=== PATIENT | male | born 1950 | race Caucasian/White ===

== ENCOUNTER 2017-09-07 12:22 | Inpatient (IN) | payer MEDICARE, SELFPAY ==
[2017-09-07] MEDS ORDERED: Multivitamins, Adult 10 ML, Thiamine HCl 100 MG, Folic Acid 1 MG in Dextrose 5 %-0.45 %... IV ONE (13:00)
[2017-09-07 13:14] LABS: #Lymphocytes 0.9 thou/uL (1.20-3.40); #Monocytes 1.1 thou/uL (0.11-0.59); #Neutrophils 13.5 thou/uL (1.40-6.50); %Basophils 0.1 % (0.0-1.0); %Eosinophils 0.1 % (0.0-10.0); %Lymphocytes 5.9 % (21.0-51.0); %Monocytes 6.8 % (0.0-10.0); Hemoglobin 11.8 g/dL (14.0-18.0); Mean Corpuscular HGB CONC 34.8 g/dL (32.0-36.0); Mean Corpuscular Hemoglobin 30.1 pg (27.0-31.0); Mean Corpuscular Volume 86.5 fl (80.0-94.0); Mean Platelet Volume 5.7 fL (7.4-10.4); Platelet Count 373 thou/uL (130-400); RBC Distribution Width 13.8 % (11.5-14.5); Red Blood Cell (RBC) Count 3.93 mill/uL (4.70-6.10); White Blood Cell (WBC) Count 15.6 thou/uL (4.8-10.8)
[2017-09-07 13:31] LABS: ALT (SGPT) 53 U/L (8-55); AST (SGOT) 66 U/L (5-34); Albumin 3.7 g/dL (3.4-4.8); Alkaline Phosphatase 96 U/L (40-150); Anion Gap 19 mmol/L (10-20); BUN (Urea Nitrogen) 12 mg/dL (8.4-25.7); Bilirubin, Total 1.7 mg/dL (0.2-1.2); Calc. Creatinine Clearance 0 mL/min (70-130); Calcium 9.8 mg/dL (7.8-10.44); Carbon Dioxide 27 mmol/L (23-31); Chloride 84 mmol/L (98-107); Estimated GFR-MDRD 75; Globulin 3.4 g/dL (2.4-3.5); Glucose 159 mg/dL (80-115); Magnesium 1.8 mg/dL (1.6-2.6); Potassium 4.1 mmol/L (3.5-5.1); Protein, Total 7.1 g/dL (5.8-8.1); Sodium 126 mmol/L (136-145)
[2017-09-07 14:37] LABS: Bilirubin Negative (Negative); Blood, Urine Negative (Negative); Clarity CLEAR (Clear); Glucose, Urine (Dipstick) Negative (Negative); Leukocyte Negative (Negative); Nitrite Negative (Negative); Protein, Urine (Dipstick) Negative (Neg-Trace); Specific Gravity, Urine 1.008 (1.002-1.036)
--- NOTE | 2017-09-07 15:05 | CT ---
CT BRAIN: Date: 09-07-17 Provided Clinical History: Head pain status post injury. FINDINGS: Comparison 06-10-02. The ventricular system appears normal in size and morphology. There is no evidence for intracranial h emorrhage or mass effect. The extracranial soft tissues and osseous structures demonstrate no acute a bnormality. IMPRESSION: No evidence for intracranial hemorrhage or mass effect. POS: [facility]
--- NOTE | 2017-09-07 15:07 | CT ---
CT CERVICAL SPINE: Date: 09-07-17 Provided Clinical History: Neck pain status post injury. FINDINGS: No evidence for fracture or traumatic subluxation. Advanced cervical degenerative changes are seen. N o prevertebral soft tissue swelling is evident. Visualized lung apices appear clear. IMPRESSION: No evidence for fracture or traumatic subluxation. POS: [facility]
--- NOTE | 2017-09-07 15:38 | PDOC.FPRHP ---
- History of Present Illness Chief Complaint: Multiple falls History of Present Illness: Patient is a 67yo M with PMH of alcohol abuse and no other known medical problems who presents via EMS for evaluation of multiple falls at home recently. Today he tripped over a pair of pants on the floor. No LOC. Reports generalized weakness. Lives alone. Upon arrival, he is found to have several old healing rib fractures and one more recent fracture with lab abnormalities and pulmonary nodules on CT. Patient has not seen a doctor in years. He drinks about 12 beers per day. Last known drink was 2 days ago. He reports rib pain, but otherwise has no complaints. ED Course: In the ED he was given a banana bag - Allergies/Adverse Reactions Allergies Allergy/AdvReac Type Severity Reaction Status Date / Time No Known Allergies Allergy Verified 09/07/17 19:25 - Home Medications Medication Instructions Recorded Confirmed Type No Known [No Known] 09/07/17 09/07/17 History - History PMHx: 1. Alcohol Abuse PSHx: none FHx: none Social: Patient drinks 12 beers per day. Reports former tobacco abuse about 20 years ago. Denies drug use. - Review of Systems General: denies: fever/chills, weight/appetite/sleep changes Eyes: denies: eye pain, vision changes ENT: denies: nasal congestion, rhinorrhea Respiratory: denies: cough, congestion, shortness of breath Cardiovascular: denies: chest pain, palpitation, edema, paroxysmal nocturnal dyspnea Gastrointestinal: denies: nausea, vomiting, diarrhea, abdominal pain, GI bleeding Genitourinary: denies: incontinence, dysuria Skin: denies: rashes, lesions Musculoskeletal: reports: pain. denies: swelling Neurological: reports: weakness. denies: numbness, syncope, seizure Psychological: denies: anxiety, depression - Vital signs BP: 120/57 HR: 100 RR: 20 Tmax: 97.8 Pox: 99% on RA Wt: 99.7kg - Physical Exam Constitutional: NAD, awake, alert and oriented -Constitutional: disheveled HEENT: PERRLA, EOMI, grossly normal hearing -HEENT: mild horizontal nystagmus. Neck: FROM, no LAD Heart: RRR, normal S1/S2, no murmurs/rubs/gallops, no edema Lungs: CTAB, no respiratory distress, no wheezing, no retractions Abdomen: soft, non-tender, bowel sounds present, no hernias Musculoskeletal: normal structure, normal tone Neurological: no focal deficit, CN II-XII intact, normal sensation -Neurological: strength in UE and LE 5/5 -Skin: L lateral thigh with large red patches that are not raised and have overlying shiny film appearance. Multiple abrasions to legs and arms. Heme/Lymphatic: no unusual bruising or bleeding, no purpura, no petechia Psychiatric: normal mood and affect, intact recent and remote memory FMR H&P: Results - Labs Result Diagrams: 09/07/17 12:58 09/07/17 20:07 Lab results: WBC 15.6 thou/uL (4.8-10.8) H 09/07/17 12:58 Hgb 11.8 g/dL (14.0-18.0) L 09/07/17 12:58 Hct 34.0 % (42.0-52.0) L 09/07/17 12:58 MCV 86.5 fl (80.0-94.0) 09/07/17 12:58 Plt Count 373 thou/uL (130-400) 09/07/17 12:58 Neutrophils % 87.0 % (42.0-75.0) H 09/07/17 12:58 Sodium 126 mmol/L (136-145) L 09/07/17 12:58 Potassium 4.1 mmol/L (3.5-5.1) 09/07/17 12:58 Chloride 84 mmol/L (98-107) L 09/07/17 12:58 Carbon Dioxide 27 mmol/L (23-31) 09/07/17 12:58 BUN 12 mg/dL (8.4-25.7) 09/07/17 12:58 Creatinine 0.99 mg/dL (0.6-1.3) 09/07/17 12:58 Glucose 159 mg/dL (80-115) H 09/07/17 12:58 Calcium 9.8 mg/dL (7.8-10.44) 09/07/17 12:58 Total Bilirubin 1.7 mg/dL (0.2-1.2) H 09/07/17 12:58 AST 66 U/L (5-34) H 09/07/17 12:58 ALT 53 U/L (8-55) 09/07/17 12:58 Alkaline Phosphatase 96 U/L (40-150) 09/07/17 12:58 Serum Total Protein 7.1 g/dL (5.8-8.1) 09/07/17 12:58 Albumin 3.7 g/dL (3.4-4.8) 09/07/17 12:58 Urine Ketones Trace mg/dL (Negative) H 09/07/17 14:25 Urine Blood Negative (Negative) 09/07/17 14:25 Urine Nitrite Negative (Negative) 09/07/17 14:25 Ur Leukocyte Esterase Negative (Negative) 09/07/17 14:25 - EKG Interpretation EKG: Incomplete RBBB, short MI interval, supraventricular complexes. FMR H&P: A/P - Problem List (1) Hyponatremia Current Visit: Yes Status: Acute Code(s): E87.1 - HYPO-OSMOLALITY AND HYPONATREMIA (2) Multiple falls Current Visit: Yes Status: Acute Code(s): R29.6 - REPEATED FALLS (3) Hypochloremia Current Visit: Yes Status: Acute Code(s): E87.8 - OTH DISORDERS OF ELECTROLYTE AND FLUID BALANCE, NEC (4) Elevated AST (SGOT) Current Visit: Yes Status: Acute Code(s): R74.0 - NONSPEC ELEV OF LEVELS OF TRANSAMNS & LACTIC ACID DEHYDRGNSE (5) Hyperbilirubinemia Current Visit: Yes Status: Acute Code(s): E80.6 - OTHER DISORDERS OF BILIRUBIN METABOLISM (6) Normocytic anemia Current Visit: Yes Status: Acute Code(s): D64.9 - ANEMIA, UNSPECIFIED (7) Pulmonary nodules Current Visit: Yes Status: Acute (8) Alcohol abuse Current Visit: Yes Status: Acute Code(s): F10.10 - ALCOHOL ABUSE, UNCOMPLICATED - Plan Multiple Falls - no signs of weakness on exam or instability. Would be worthwhile to evaluate gait. Likely 2/2 to alcohol intoxication though. - head CT negative - PT/OT consult - fall precautions Hyponatremia - serum and urine osm to evaluate - Beer drinkers potomania vs. SIADH with lung mets - fluid restrict to 1800cc Hypochloremia - trend Elevated AST - likely 2/2 etoh use - trend Hyperbilirubinemia - direct bili to further evaluate Pulmonary Nodules - CTchest shows pulmonary nodules, likely metastatic disease - CEA, Ca 19-9, and Ca125 pending - CTabd/pelvis ordered Normocytic Anemia - Fe studies - FOBT - B12 - RBC folate - trend Rib Fracture - control pain with tylenol and ibuprofen Alcohol Abuse - ASE protocol VTE Ppx: Lovenox Code Status: Full Disposition/LOS: Symptomatic meds will be provided. Likely length of hospital stay >2 days. Discharge once medical conditions have been evaluated and treated. FMR H&P: Upper Level - Pertinent findings Gen: poorly groomed male in no acute distress, moves around bed with no pain HEENT: NC/AT, WAI,EOMI, MMM Resp: CTA, normal work of breathing CV: RRR, normal S1, S2, no murmur ABD: Soft nontender, nondistended. No CVA tenderness Extremities: no edema, pulses 2+ Psych: calm, normal affect and mood Neuro: No focal defecits. CN intact, normal strength and sensation - Plan Date/Time: 09/07/17 5716 IBk, have evaluated this patient and agree with findings/plan as outlined by academic intern resident. Pertinent changes/additions are listed here. 1 Euvolemic Hypoosmolar Hyponatremia- likely from beer potamania or SIADH. FU urine studies. fluid resrict. 2 Multiple Falls- likely 2/2 to deconditioning, nutrition and etoh. Will give IV thiamine while here and have PT evaluate 3 Hypochloremia-will follow 4 Elevated AST-2/2 to etoh use. will get RUQ sono 5 Hyperbilirubinemia- RUQ sono and direct bili to further evaluate 6 Pulmonary Nodules- concern for cancer. primary vs metastatic. CT chest shows pulmonary nodules, likely metastatic disease. CEA, Ca 19-9, and Ca125 pending and. CTabd/pelvis ordered 7 Normocytic Anemia- iron, folate and b12 pending 8 Alcohol Abuse- ASE protocol and IV thiamine VTE Ppx: Lovenox Code Status: Full Attending Addendum - Attending Addendum Date/Time: 09/08/17 0027 I personally evaluated the patient and discussed the management with Dr. Singh. I agree with the History, Examination, Assessment and Plan documented above with any addition or exceptions noted below.
--- NOTE | 2017-09-07 15:46 | CT ---
CT CHEST WITHOUT CONTRAST: Date: 09-07-17 Provided Clinical History: Right sided rib pain status post fall. FINDINGS: The heart, pericardium, and great vessels are suboptimally evaluated without IV contrast but demonstr ate an unremarkable, unenhanced CT appearance with the exception of vascular calcification including coronary calcium. There are multiple bilateral noncalcified pulmonary nodules. No pleural fluid or pneumothorax apparen t. The largest nodule is at the right lung base and measures approximately 13 mm. The airway appears patent and of normal caliber. Remote right sided rib fractures are noted. There is an age indeterminate but possibly acute fracture involving the anterior right 8th rib. The visualized portions of the upper abdomen demonstrate an unremarkable, unenhanced CT appearance. T he osseous structures demonstrate no concerning osteoblastic or osteolytic lesions. IMPRESSION: 1. Age indeterminate nondisplaced right anterior 8th rib fracture. 2. Multiple bilateral pulmonary nodules, suspicious for metastatic disease. POS: [facility]
[2017-09-07] MEDS ORDERED: Nicotine 14 MG PATCH TD PRN (15:49)
[2017-09-07 16:10] LABS: PTT 29.6 SEC (22.9-36.1); Prothrombin Time 12.9 SEC (12.0-14.7)
[2017-09-07 16:24] LABS: Amphetamine Not Detected (NotDetected); Barbiturates Screen Not Detected (NotDetected); Benzodiazepine Screen Not Detected (NotDetected); Cocaine Metabolite Screen Not Detected (NotDetected); Medtox Control Line Valid? VALID (VALID); Medtox Reader # READER 4; Methadone Not Detected (NotDetected); Methamphetamine Not Detected (NotDetected); Opiate Screen Not Detected (NotDetected); Oxycodone Screen Not Detected (NotDetected); Phencyclidine (PCP) Not Detected (NotDetected); THC/Cannabinoid Screen Not Detected (NotDetected); Tricyclic Screen Not Detected (NotDetected)
[2017-09-07 17:19] LABS: Anion Gap 16 mmol/L (10-20); BUN (Urea Nitrogen) 11 mg/dL (8.4-25.7); Calc. Creatinine Clearance 0 mL/min (70-130); Calcium 9.3 mg/dL (7.8-10.44); Carbon Dioxide 26 mmol/L (23-31); Chloride 87 mmol/L (98-107); Estimated GFR-MDRD Greater than 90; Glucose 137 mg/dL (80-115); Potassium 3.8 mmol/L (3.5-5.1); Sodium 125 mmol/L (136-145)
[2017-09-07 18:24] VITALS: BMI 25.0
[2017-09-07 20:32] LABS: Anion Gap 14 mmol/L (10-20); BUN (Urea Nitrogen) 11 mg/dL (8.4-25.7); Calc. Creatinine Clearance 78 mL/min (70-130); Carbon Dioxide 29 mmol/L (23-31); Chloride 88 mmol/L (98-107); Estimated GFR-MDRD 69; Glucose 154 mg/dL (80-115); Potassium 3.5 mmol/L (3.5-5.1); Sodium 127 mmol/L (136-145)
[2017-09-07] MEDS: Thiamine HCl 200 MG/2 ML VIAL SLOW IVP SCH (21:25)
[2017-09-07 22:03] LABS: Iron 21 ug/dL (65-175); Iron Binding Capacity, Total 179 mcg/dL (261-462)
--- NOTE | 2017-09-07 22:30 | PDOC.EVN ---
Event Note - Event Note Event Note: Date/Time: 09/07/170 I personally evaluated the patient and discussed the management with Dr. Khoury and Millie. I will cosign the Resident H&P when complete. Mr Mejía is being admitted for hyponatremia. He was last evaluated by a doctor 25 years ago in [place]. We suspect his living condition to be difficult. 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 He has 2 pulmonary nodules that will require workup wither inpt or outpt. ASE protocol initiated. thiamine and folate given.
[2017-09-07] MEDS ORDERED: Multivitamins, Adult 10 ML, Folic Acid 1 MG, Thiamine HCl 100 MG in Dextrose 5 %-0.45 %... IV SCH (23:00)
[2017-09-08 04:31] LABS: #Lymphocytes 2.1 thou/uL (1.20-3.40); #Monocytes 1.6 thou/uL (0.11-0.59); #Neutrophils 11.1 thou/uL (1.40-6.50); %Basophils 0.1 % (0.0-1.0); %Eosinophils 0.2 % (0.0-10.0); %Lymphocytes 14.3 % (21.0-51.0); %Neutrophils 74.5 % (42.0-75.0); Hemoglobin 10.3 g/dL (14.0-18.0); Mean Corpuscular HGB CONC 33.8 g/dL (32.0-36.0); Mean Corpuscular Hemoglobin 29.6 pg (27.0-31.0); Mean Corpuscular Volume 87.7 fl (80.0-94.0); Mean Platelet Volume 5.7 fL (7.4-10.4); Platelet Count 318 thou/uL (130-400); RBC Distribution Width 13.9 % (11.5-14.5); Red Blood Cell (RBC) Count 3.48 mill/uL (4.70-6.10); White Blood Cell (WBC) Count 14.9 thou/uL (4.8-10.8)
[2017-09-08 05:36] LABS: Anion Gap 13 mmol/L (10-20); BUN (Urea Nitrogen) 16 mg/dL (8.4-25.7); Calc. Creatinine Clearance 70 mL/min (70-130); Calcium 9.1 mg/dL (7.8-10.44); Carbon Dioxide 27 mmol/L (23-31); Chloride 89 mmol/L (98-107); Estimated GFR-MDRD 61; Glucose 105 mg/dL (80-115); Potassium 3.8 mmol/L (3.5-5.1); Sodium 125 mmol/L (136-145)
--- NOTE | 2017-09-08 08:58 | PDOC.FM ---
- Subjective Subjective: Patient reports that he is doing well. He reports some R sided rib pain. He denies any blood in his stool or dark black stools. He reports feeling overall weak. He is eating well and denies any N/V, cough, SOB, chest pain, abdominal pain. - Objective MAR Reviewed: Yes Vital Signs & Weight: Vital Signs (12 hours) Temp Pulse Resp BP BP Pulse Ox 09/08/17 08:05 98.7 F 79 16 101/65 100 09/08/17 03:21 112/58 L 09/07/17 23:42 98.2 F 94 18 110/56 L 99 Weight Weight 83.189 kg I&O: 09/07/17 09/08/17 09/09/17 06:59 06:59 06:59 Intake Total 100 Output Total 225 Balance -125 Result Diagrams: 09/08/17 04:10 09/08/17 04:10 <Ashley Murillo - Last Filed: 09/08/17 08:56> - Objective Vital Signs & Weight: Vital Signs (12 hours) Temp Pulse Pulse Pulse Pulse Resp BP 09/08/17 11:55 98.5 F 79 18 09/08/17 11:44 79 79 84 09/08/17 11:00 102/68 09/08/17 08:05 98.7 F 79 16 09/08/17 08:00 98.7 F 79 16 09/08/17 07:00 101/65 09/08/17 03:21 112/58 L BP BP BP BP Pulse Ox Pulse Ox 09/08/17 11:55 102/68 100 09/08/17 11:44 102/60 95/60 104/66 98 09/08/17 11:00 09/08/17 08:05 101/65 100 09/08/17 08:00 97 09/08/17 07:00 09/08/17 03:21 Weight Weight 83.189 kg I&O: 09/07/17 09/08/17 09/09/17 06:59 06:59 06:59 Intake Total 100 Output Total 225 Balance -125 Result Diagrams: 09/08/17 04:10 09/08/17 04:10 <Karuna Pope - Last Filed: 09/08/17 15:22> Phys Exam - Physical Examination Constitutional: NAD HEENT: moist MMs Respiratory: no wheezing, no rales, no rhonchi, clear to auscultation bilateral decreased air entry Cardiovascular: RRR, no significant murmur, no rub Gastrointestinal: soft, non-tender, no distention, positive bowel sounds Musculoskeletal: no edema, pulses present Neurological: non-focal, moves all 4 limbs Psychiatric: normal affect, A&O x 3 Skin: normal turgor, cap refill <2 seconds <Ashley Murillo - Last Filed: 09/08/17 08:56> Dx/Plan (1) Pulmonary nodules Status: Acute (2) Hyponatremia Code(s): E87.1 - HYPO-OSMOLALITY AND HYPONATREMIA Status: Acute (3) Positive fecal occult blood test Status: Acute (4) Leukocytosis Code(s): D72.829 - ELEVATED WHITE BLOOD CELL COUNT, UNSPECIFIED Status: Acute QualifierTitle: Leukocytosis type: unspecified Qualified Code(s): D72.829 - Elevated white blood cell count, unspecified (5) Alcohol abuse Code(s): F10.10 - ALCOHOL ABUSE, UNCOMPLICATED Status: Acute (6) Elevated AST (SGOT) Code(s): R74.0 - NONSPEC ELEV OF LEVELS OF TRANSAMNS & LACTIC ACID DEHYDRGNSE Status: Acute (7) Hypochloremia Code(s): E87.8 - OTH DISORDERS OF ELECTROLYTE AND FLUID BALANCE, NEC Status: Acute (8) Multiple falls Code(s): R29.6 - REPEATED FALLS Status: Acute (9) Normocytic anemia Code(s): D64.9 - ANEMIA, UNSPECIFIED Status: Acute (10) Former tobacco use Code(s): Z87.891 - PERSONAL HISTORY OF NICOTINE DEPENDENCE Status: Acute - Plan Plan: Multiple Falls No signs of weakness on exam or instability. Likely 2/2 deconditioning from chronic EtOH abuse. CT head was negative. - PT/OT consult - fall precautions Hyponatremia Likely 2/2 beer drinkers potomania with low urine Na of < 20. - fluid restrict to 1800cc - Trend Na Multiple Pulmonary Nodules CT chest shows pulmonary nodules, concerning for metastatic disease. FOBT positive. CEA 7.33. - Ca 19-9, and Ca [address] - [address] abd/pelvis Hypochloremia - trend Elevated AST - likely 2/2 EtOH use - trend Hyperbilirubinemia T. bili 1.7, d. bili 1.0. - Will trend - Consider RUQ US Normocytic Anemia FOBT positive. Iron studies consistent with Anemia of Chronic Disease. B12 WNL. - RBC folate - trend Rib Fracture - control pain with tylenol and ibuprofen Alcohol Abuse - [facility] protocol - Thiamine - Folic Acid - Multivitamin - Party Host about cessation Former Tobacco Abuse Patient has decreased air entry on exam and reports feeling tight sometimes when breathing. Has h/o smoking 1ppd for 15 years about 20 years ago. - Thomas prn <Ashley Murillo - Last Filed: 09/08/17 08:56> Attending Addendum - Attending Addendum Date/Time: 09/08/17 1520 I personally evaluated the patient and discussed the management with Dr. Murillo. I agree with the History, Examination, Assessment and Plan documented above with any addition or exceptions noted below. The patient appears to have mets on lung CT. CEA was elevated. Pt is having CT abd and pelvis to look for a primary neoplasm. Will consult GI as pt likely needs a colonosocpy. Anticipate an oncology referral as well. <Karuna Pope - Last Filed: 09/08/17 15:22>
[2017-09-08] MEDS ORDERED: Folic Acid 1 MG TAB PO SCH (09:00)
[2017-09-08] MEDS ORDERED: Pantoprazole 40 MG VIAL IVP SCH ×2 (09:00→16:00)
[2017-09-08] MEDS ORDERED: Multivitamin W/ Minerals 1 TAB PO SCH (09:00)
[2017-09-08] MEDS ORDERED: Prevnar 13-Val Conj/PF 0.5 ML SYRINGE IM ONE (09:00)
[2017-09-08] MEDS: Enoxaparin Sodium 40 MG/0.4 ML SYRINGE SC SCH (10:01)
[2017-09-08] MEDS: Folic Acid 1 MG TAB PO SCH (10:01)
[2017-09-08] MEDS: Thiamine HCl 200 MG/2 ML VIAL SLOW IVP SCH ×2 (10:01→20:59)
[2017-09-08] MEDS: Multivitamin W/ Minerals 1 TAB PO SCH (10:01)
--- NOTE | 2017-09-08 10:45 | CT ---
ABDOMEN CT WITH CONTRAST PELVIC CT WITH CONTRAST: HISTORY: Evidence of metastases. Evaluate for possible primary tumor. COMPARISON: None. TECHNIQUE: Abdomen and pelvic CT are performed with IV contrast. Enteric contrast was not administered. Rincon l reformatted images are submitted for interpretation. FINDINGS: ABDOMEN CT: There is a nodule in the right lung base measuring 1.3 x 1.2 cm. Heart size is normal. No pericardi al effusion. The descending thoracic aorta and abdominal aorta have an overall normal caliber. No p eriaortic fat stranding. Limited evaluation of the liver, pancreas, and spleen due to motion. No obvious abnormal enhancing m asses. Right adrenal gland is unremarkable. There is fullness of the left adrenal gland possibly du e to metastases. Symmetric enhancement of the kidneys. No obstructive uropathy. No gastrohepatic, retrocrural, or periportal lymphadenopathy. There is a large necrotic left periaortic lymph node measuring 1.4 x 1.4 cm. There is an enlarged ne phrotic left periaortic lymph node measuring 1.7 x 1.0 cm. Additional smaller retroperitoneal lymph nodes are identified. There is a necrotic, enlarged lymph node posterior to the left kidney measuring 1.7 x 2.2 cm. No mes enteric mass, free air, or fluid. Additional scattered nonspecific right abdominal mesenteric lymph nodes are noted. Gastric mucosa, duodenum, and multiple normal-caliber small bowel loops are identified. Ileocecal ju nction is normal. Normal-caliber appendix. Contrast is noted in a nondistended, nondilated colon. There is occasional diverticulosis, without evidence of diverticulitis. In the distal sigmoid colon and rectum, there is evidence of pericolonic fat stranding. There is abnormal soft tissue attenuatio n involving the left aspect of the distal sigmoid colon and rectum, measuring 2.2 x 1.2 cm. There ar e multiple adjacent enlarged lymph nodes. There is mucosal thickening and irregularity involving the rectum. Correlate for possible rectal neoplasm. A small amount of fluid in the presacral space. There are no lytic or blastic lesion in the osseous structures. Extensive degenerative changes are i dentified. 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 Additional metastatic lymph nodes are noted in the retroperitoneal reg ion (periaortic) as well as in the left upper quadrant mesentery. Possible left adrenal gland metast ases. POS: [facility]
[2017-09-08] MEDS ORDERED: Multivitamins, Adult 10 ML, Folic Acid 1 MG, Thiamine HCl 100 MG in Dextrose 5 %-0.45 %... IV SCH ×2 (13:00)
[2017-09-08] MEDS ORDERED: chlorproMAZINE HCl 25 MG in Sodium Chloride 0.9% 50 ML IVPB PRN (14:54)
[2017-09-08] MEDS ORDERED: GoLYTELY 4,000 ml Bottle PO SCH (18:00)
[2017-09-09 05:17] LABS: #Lymphocytes 1.9 thou/uL (1.20-3.40); #Monocytes 1.1 thou/uL (0.11-0.59); #Neutrophils 6.7 thou/uL (1.40-6.50); %Eosinophils 0.2 % (0.0-10.0); %Lymphocytes 19.4 % (21.0-51.0); %Monocytes 11.5 % (0.0-10.0); %Neutrophils 68.8 % (42.0-75.0); Hemoglobin 9.7 g/dL (14.0-18.0); Mean Corpuscular HGB CONC 34.5 g/dL (32.0-36.0); Mean Corpuscular Hemoglobin 30.7 pg (27.0-31.0); Mean Platelet Volume 5.8 fL (7.4-10.4); Platelet Count 296 thou/uL (130-400); RBC Distribution Width 13.7 % (11.5-14.5); Red Blood Cell (RBC) Count 3.15 mill/uL (4.70-6.10); White Blood Cell (WBC) Count 9.8 thou/uL (4.8-10.8)
[2017-09-09 05:55] LABS: Anion Gap 14 mmol/L (10-20); BUN (Urea Nitrogen) 11 mg/dL (8.4-25.7); Calc. Creatinine Clearance 104 mL/min (70-130); Calcium 8.2 mg/dL (7.8-10.44); Carbon Dioxide 27 mmol/L (23-31); Chloride 91 mmol/L (98-107); Estimated GFR-MDRD Greater than 90; Glucose 88 mg/dL (80-115); Sodium 129 mmol/L (136-145)
[2017-09-09 06:15] LABS: Potassium 2.8 mmol/L (3.5-5.1)
[2017-09-09] MEDS ORDERED: Potassium Chloride 40 MEQ in Premix Bag 1 BAG IVPB SCH (06:30)
[2017-09-09] MEDS ORDERED: Potassium Chloride 40 MEQ, Admixture Fee 1 EACH in Sodium Chloride 0.9% 250 ML 250 ML IV SCH (06:45)
[2017-09-09] MEDS ORDERED: Potassium Chloride 40 MEQ in Sodium Chloride 0.9% 250 ML 250 ML IV ONE (06:45)
[2017-09-09] MEDS: Multivitamin W/ Minerals 1 TAB PO SCH (09:15)
[2017-09-09] MEDS: Folic Acid 1 MG TAB PO SCH (09:15)
--- NOTE | 2017-09-09 09:18 | PDOC.FM ---
- Subjective Subjective: Patient doing well this AM. He denies any N/V, abdominal pain. He does report a lot of diarrhea, but was doing the bowel prep for the colonoscopy. Denies any blood in his stool. Denies CP or SOB. - Objective MAR Reviewed: Yes Vital Signs & Weight: Vital Signs (12 hours) Temp Pulse Resp BP BP BP Pulse Ox 09/09/17 08:00 98.6 F 72 16 118/60 99 09/09/17 07:00 100/61 09/09/17 04:00 97.8 F 76 16 100/61 100 09/09/17 03:00 100/60 09/09/17 00:00 98.1 F 87 20 110/62 96 09/08/17 23:00 110/62 Weight Weight 82.508 kg I&O: 09/08/17 09/09/17 09/10/17 06:59 06:59 06:59 Intake Total 100 400 Output Total 225 Balance -125 400 Result Diagrams: 09/09/17 05:01 09/09/17 05:01 <Ashley Murillo - Last Filed: 09/09/17 09:14> - Objective Vital Signs & Weight: Vital Signs (12 hours) Temp Pulse Pulse Resp BP BP BP 09/09/17 18:27 97.3 F L 67 16 149/65 H 09/09/17 15:00 149/65 H 09/09/17 11:04 98.0 F 70 16 116/64 09/09/17 11:00 118/60 09/09/17 08:00 98.0 F 70 16 118/60 09/09/17 07:48 72 118/60 09/09/17 07:00 100/61 Pulse Ox Pulse Ox 09/09/17 18:27 98 09/09/17 15:00 09/09/17 11:04 100 09/09/17 11:00 09/09/17 08:00 99 09/09/17 07:48 99 09/09/17 07:00 Weight Weight 82.508 kg I&O: 09/08/17 09/09/17 09/10/17 06:59 06:59 06:59 Intake Total 100 400 480 Output Total 225 Balance -125 400 480 Result Diagrams: 09/09/17 05:01 09/09/17 13:14 <Karuna Pope - Last Filed: 09/09/17 18:52> Phys Exam - Physical Examination Constitutional: NAD disheveled appearing HEENT: moist MMs Respiratory: no wheezing, no rales, no rhonchi, clear to auscultation bilateral Cardiovascular: RRR, no significant murmur, no rub Gastrointestinal: soft, non-tender, no distention, positive bowel sounds Musculoskeletal: no edema, pulses present Neurological: non-focal, moves all 4 limbs Psychiatric: normal affect, A&O x 3 Skin: normal turgor, cap refill <2 seconds <Ashley Murillo - Last Filed: 09/09/17 09:14> Dx/Plan (1) Pulmonary nodules Status: Acute (2) Hyponatremia Code(s): E87.1 - HYPO-OSMOLALITY AND HYPONATREMIA Status: Acute (3) Positive fecal occult blood test Status: Acute (4) Leukocytosis Code(s): D72.829 - ELEVATED WHITE BLOOD CELL COUNT, UNSPECIFIED Status: Acute QualifierTitle: Leukocytosis type: unspecified Qualified Code(s): D72.829 - Elevated white blood cell count, unspecified (5) Alcohol abuse Code(s): F10.10 - ALCOHOL ABUSE, UNCOMPLICATED Status: Acute (6) Elevated AST (SGOT) Code(s): R74.0 - NONSPEC ELEV OF LEVELS OF TRANSAMNS & LACTIC ACID DEHYDRGNSE Status: Acute (7) Hypochloremia Code(s): E87.8 - OTH DISORDERS OF ELECTROLYTE AND FLUID BALANCE, NEC Status: Acute (8) Multiple falls Code(s): R29.6 - REPEATED FALLS Status: Acute (9) Normocytic anemia Code(s): D64.9 - ANEMIA, UNSPECIFIED Status: Acute (10) Former tobacco use Code(s): Z87.891 - PERSONAL HISTORY OF NICOTINE DEPENDENCE Status: Acute (11) Hypokalemia Code(s): E87.6 - HYPOKALEMIA Status: Acute - Plan Plan: Possible Rectal Mass FOBT positive. Probably primary rectal malignancy seen on CT with multiple lymph node mets as well as L adrenal mets and bilateral pulmonary nodules concerning for mets. - Dr. Braswell with GI has been consulted, appreciate recs - Plan for EGD and Colonoscopy today - NPO - Protonix Multiple Falls No signs of weakness on exam or instability. Likely 2/2 deconditioning from chronic EtOH abuse. CT head was negative. - PT/OT consult - fall precautions Hyponatremia Likely 2/2 beer drinkers potomania with low urine Na of < 20. - fluid restrict to 1800cc - Trend Na Multiple Pulmonary Nodules CT chest shows pulmonary nodules, concerning for metastatic disease. FOBT positive. CEA 7.33. CA 19-9 63 - CT abd/pelvis Hypokalemia K 2.8 this AM -Will replete -Monitor Hypochloremia - trend Elevated AST - likely 2/2 EtOH use - trend Hyperbilirubinemia T. bili 1.7, d. bili 1.0. - Will trend - Consider RUQ US Normocytic Anemia FOBT positive. Iron studies consistent with Anemia of Chronic Disease. B12 WNL. RBC folate WNL. - trend Rib Fracture - control pain with tylenol and ibuprofen Alcohol Abuse - ASE protocol - Thiamine - Folic Acid - Multivitamin - Dope Firer about cessation Former Tobacco Abuse Patient has decreased air entry on exam and reports feeling tight sometimes when breathing. Has h/o smoking 1ppd for 15 years about 20 years ago. - Duonebs prn <Ashley Murillo - Last Filed: 09/09/17 09:14> Attending Addendum - Attending Addendum Date/Time: 09/09/17 1851 I personally evaluated the patient and discussed the management with Dr. Murillo. I agree with the History, Examination, Assessment and Plan documented above with any addition or exceptions noted below. The patient has hypokalemia. REplacing potassium and will recheck this afternoon. SCheduled for EGD/Colonoscopy today with biopsy of rectal mass. <Karuna Pope - Last Filed: 09/09/17 18:52>
[2017-09-09] MEDS: Enoxaparin Sodium 40 MG/0.4 ML SYRINGE SC SCH (09:20)
[2017-09-09] MEDS: Thiamine HCl 200 MG/2 ML VIAL SLOW IVP SCH ×2 (09:26→20:54)
[2017-09-09] MEDS: Pantoprazole 40 MG VIAL IVP SCH (09:26)
--- NOTE | 2017-09-09 09:57 | CON ---
DATE OF CONSULTATION: 09/08/2017 REASON FOR CONSULTATION: Request for colonoscopy . HISTORY OF PRESENT ILLNESS: Mr. Mejía is a 67-year-old gentleman found to have old rib fractur e the patient has diarrhea for the past 2 days, rectal bleeding change in bowel fun ction and weight loss. He has complained of hiccups for about the past 2 days. He states he has had this problem in the past, reflux, dysphagia, cough, shortness of breath. Denies any . PAST MEDICAL HISTORY: Alcohol abuse. PAST SURGICAL HISTORY: None. FAMILY HISTORY: None. SOCIAL HISTORY: . MEDICATIONS: , DuoNeb, Lovenox, multivitamin, thiamine, and folate. PHYSICAL EXAMINATION: VITAL SIGNS: Temperature 98, pulse 58, blood pressure 103/58. GENERAL: The patient is older than his stated age. . He is alert and oriented to person . LABORATORY DATA: White blood cell count differential normal. INR is 1. Sodium 125, . ASSESSMENT: This gentleman has been having falls at home, has significant hyponatremia. Chest x-ray shows bunch of noncalcified nodules. His abdomen is also concern for rectal lesion. There is a mil dly elevated CEA of unclear significance. He also has hiccups. PLAN: 1. Start PPI. 2. Chlorpromazine 25 mg q.6 to 8 hours p.r.n. for hiccups. 3. EGD and colonoscopy tomorrow. I have discussed risks, benefits, possible complications as well as the indication of procedure with the patient. He wishes to proceed.
[2017-09-09 14:06] LABS: Anion Gap 14 mmol/L (10-20); BUN (Urea Nitrogen) 9 mg/dL (8.4-25.7); Calc. Creatinine Clearance 103 mL/min (70-130); Calcium 8.5 mg/dL (7.8-10.44); Carbon Dioxide 28 mmol/L (23-31); Chloride 92 mmol/L (98-107); Estimated GFR-MDRD Greater than 90; Glucose 80 mg/dL (80-115); Magnesium 1.7 mg/dL (1.6-2.6); Sodium 131 mmol/L (136-145)
[2017-09-09 14:30] LABS: Potassium 2.9 mmol/L (3.5-5.1)
[2017-09-09] MEDS ORDERED: Fentanyl 100 MCG/2 ML VIAL ONE (14:51)
[2017-09-09] MEDS ORDERED: Promethazine HCl 25 MG/ML VIAL SLOW IVP PRN (15:52)
[2017-09-09] MEDS ORDERED: Promethazine HCl 25 MG/ML VIAL IM PRN (15:52)
[2017-09-09] MEDS ORDERED: Ondansetron HCl/PF 4 MG/2 ML Vial IVP PRN (15:52)
[2017-09-09] MEDS ORDERED: Potassium Chloride 20 MEQ TAB PO SCH (16:15)
[2017-09-09] MEDS ORDERED: ePHEDrine/0.9% NaCl/PF SYRINGE 50 mg/10 ml ONE (16:15)
[2017-09-09] MEDS ORDERED: PROPOFOL 200 MG/20 ML VIAL ONE (16:15)
[2017-09-09] MEDS ORDERED: Lidocaine 1% PF 5 ML VIAL ONE (16:15)
[2017-09-09] MEDS ORDERED: PHENYLEPHRINE-NS 100 MCG/ML 10 ML SYRINGE ONE (16:15)
[2017-09-09 16:16] LABS: Folate,Hemolysate 441.6 ng/mL (Not Estab.); Hematocrit 32.4 % (37.5-51.0); RBC Folate Test Component 1363 ng/mL (>498)
--- NOTE | 2017-09-09 19:18 | OP ---
DATE OF PROCEDURE: 09/09/2017 PROCEDURE PERFORMED: Colonoscopy with biopsy. PREOPERATIVE DIAGNOSIS: Abnormal CT scan. OPERATIVE NOTE: Informed consent was obtained from the patient. He was sedated with total intraveno us anesthesia. The rectal exam was performed which revealed a firm mass in the distal rectum. The c olonoscope was advanced to the terminal ileum without difficulty. The mucosa of the terminal ileum w as normal. The ileocecal valve and appendiceal orifice were clearly identified. Preparation quality was adequate. There was diverticulosis throughout the left colon, which was moderate. There was a large circumferential deeply ulcerated necrotic mass from 2 cm above the anal verge to 12-13 cm above the anal verge. Biopsies were obtained from the mass. Retroflexed views were not possible. IMPRESSION: 1. Large rectal mass from 2 cm above the anal verge to 13 cm. This was deeply ulcerated circumferen tially and necrotic. 2. Left-sided diverticulosis. 3. Otherwise normal colonoscopy to the terminal ileum. RECOMMENDATIONS: 1. Await histopathology. 2. Oncology consultation pending pathology results. Typically, he would receive radiation prior to surgery. He denies significant symptoms prior to now.
[2017-09-09 21:46] LABS: Potassium 3.1 mmol/L (3.5-5.1)
[2017-09-10 04:28] LABS: #Lymphocytes 1.7 thou/uL (1.20-3.40); #Monocytes 1.2 thou/uL (0.11-0.59); #Neutrophils 5.4 thou/uL (1.40-6.50); %Basophils 0.5 % (0.0-1.0); %Eosinophils 0.5 % (0.0-10.0); %Lymphocytes 19.9 % (21.0-51.0); %Monocytes 14.1 % (0.0-10.0); Hemoglobin 9.2 g/dL (14.0-18.0); Mean Corpuscular HGB CONC 33.8 g/dL (32.0-36.0); Mean Corpuscular Hemoglobin 30.5 pg (27.0-31.0); Mean Corpuscular Volume 90.2 fl (80.0-94.0); Mean Platelet Volume 5.9 fL (7.4-10.4); Platelet Count 296 thou/uL (130-400); RBC Distribution Width 13.7 % (11.5-14.5); Red Blood Cell (RBC) Count 3.02 mill/uL (4.70-6.10); White Blood Cell (WBC) Count 8.3 thou/uL (4.8-10.8)
[2017-09-10 04:40] LABS: Anion Gap 14 mmol/L (10-20); BUN (Urea Nitrogen) 8 mg/dL (8.4-25.7); Calc. Creatinine Clearance 104 mL/min (70-130); Calcium 8.4 mg/dL (7.8-10.44); Carbon Dioxide 28 mmol/L (23-31); Chloride 92 mmol/L (98-107); Estimated GFR-MDRD Greater than 90; Glucose 84 mg/dL (80-115); Potassium 3.1 mmol/L (3.5-5.1); Sodium 131 mmol/L (136-145)
--- NOTE | 2017-09-10 07:36 | PDOC.FM ---
- Subjective Subjective: Patient doing well this AM. Discussed with him that he had a mass in his rectum and that it is likely cancer and he was understanding of this. Informed him that we will begin to make plans regarding treatment once we get the pathology back. He denies any diarrhea, nausea, vomiting, abdominal pain. He reports that his hiccups have improved. He is tolerating PO well. - Objective MAR Reviewed: Yes Vital Signs & Weight: Vital Signs (12 hours) Temp Pulse Resp BP BP BP Pulse Ox 09/10/17 04:28 98.0 F 72 16 118/66 97 09/10/17 00:00 98.4 F 82 18 109/51 L 92 L 09/09/17 23:00 109/51 L 09/09/17 20:00 98.4 F 82 18 106/64 96 Weight Weight 82.508 kg I&O: 09/09/17 09/10/17 09/11/17 06:59 06:59 06:59 Intake Total 400 480 Balance 400 480 Result Diagrams: 09/10/17 04:00 09/10/17 04:00 <Ashley Murillo - Last Filed: 09/10/17 07:33> - Objective Vital Signs & Weight: Vital Signs (12 hours) Temp Pulse Resp BP BP Pulse Ox 09/10/17 11:00 98.7 F 76 16 122/66 100 09/10/17 08:00 98.0 F 18 96/61 99 09/10/17 04:28 98.0 F 72 16 118/66 97 Weight Weight 82.508 kg I&O: 09/09/17 09/10/17 09/11/17 06:59 06:59 06:59 Intake Total 400 480 Balance 400 480 Result Diagrams: 09/10/17 04:00 09/10/17 04:00 <Karuna Pope - Last Filed: 09/10/17 12:54> Phys Exam - Physical Examination Constitutional: NAD HEENT: moist MMs Respiratory: no wheezing, no rales, no rhonchi, clear to auscultation bilateral Cardiovascular: RRR, no significant murmur, no rub Gastrointestinal: soft, non-tender, no distention, positive bowel sounds Musculoskeletal: no edema, pulses present Neurological: non-focal, moves all 4 limbs Psychiatric: normal affect, A&O x 3 Skin: normal turgor, cap refill <2 seconds <Ashley Murillo - Last Filed: 09/10/17 07:33> Dx/Plan (1) Rectal mass Code(s): K62.9 - DISEASE OF ANUS AND RECTUM, UNSPECIFIED Status: Acute (2) Pulmonary nodules Status: Acute (3) Hyponatremia Code(s): E87.1 - HYPO-OSMOLALITY AND HYPONATREMIA Status: Acute (4) Positive fecal occult blood test Status: Acute (5) Leukocytosis Code(s): D72.829 - ELEVATED WHITE BLOOD CELL COUNT, UNSPECIFIED Status: Acute QualifierTitle: Leukocytosis type: unspecified Qualified Code(s): D72.829 - Elevated white blood cell count, unspecified (6) Alcohol abuse Code(s): F10.10 - ALCOHOL ABUSE, UNCOMPLICATED Status: Acute (7) Elevated AST (SGOT) Code(s): R74.0 - NONSPEC ELEV OF LEVELS OF TRANSAMNS & LACTIC ACID DEHYDRGNSE Status: Acute (8) Hypochloremia Code(s): E87.8 - OTH DISORDERS OF ELECTROLYTE AND FLUID BALANCE, NEC Status: Acute (9) Multiple falls Code(s): R29.6 - REPEATED FALLS Status: Acute (10) Normocytic anemia Code(s): D64.9 - ANEMIA, UNSPECIFIED Status: Acute (11) Former tobacco use Code(s): Z87.891 - PERSONAL HISTORY OF NICOTINE DEPENDENCE Status: Acute (12) Hypokalemia Code(s): E87.6 - HYPOKALEMIA Status: Acute - Plan Plan: Rectal Mass FOBT positive. Probably primary rectal malignancy seen on CT with multiple lymph node mets as well as L adrenal mets and bilateral pulmonary nodules concerning for mets. Colonoscopy revealed large, circumferential, ulcerated mass in the rectum. - Dr. Braswell with GI has been consulted, appreciate recs - Biopsies of the mass pending, plan for treatment once results are back - will likely need to get onc on board - Clear liquid diet - Protonix Multiple Falls No signs of weakness on exam or instability. Likely 2/2 deconditioning from chronic EtOH abuse. CT head was negative. - PT/OT consult - fall precautions Hyponatremia Likely 2/2 beer drinkers potomania with low urine Na of < 20. - fluid restrict to 1800cc - Trend Na Multiple Pulmonary Nodules CT chest shows pulmonary nodules, concerning for metastatic disease. FOBT positive. CEA 7.33. CA 19-[address] abd/pelvis showed rectal mass. These pulmonary nodules are likely metastatic from the rectal mass - Biopsies of rectal mass pending - Will likely need to get onc on board once biopsies result Hypokalemia K 3.1 this AM -Will replete -Monitor Hypochloremia - trend Elevated AST - likely 2/2 EtOH use - trend Hyperbilirubinemia T. bili 1.7, d. bili 1.0. - Will trend - Consider RUQ US Normocytic Anemia FOBT positive. Iron studies consistent with Anemia of Chronic Disease. B12 WNL. RBC folate WNL. - trend Rib Fracture - control pain with tylenol and ibuprofen Alcohol Abuse - ASE protocol - Thiamine - Folic Acid - Multivitamin - Cleaning Matron about cessation Former Tobacco Abuse Patient has decreased air entry on exam and reports feeling tight sometimes when breathing. Has h/o smoking 1ppd for 15 years about 20 years ago. - Thomas prn <Ashley Murillo - Last Filed: 09/10/17 07:33> Attending Addendum - Attending Addendum Date/Time: 09/10/17 1252 I personally evaluated the patient and discussed the management with Dr. Murillo. I agree with the History, Examination, Assessment and Plan documented above with any addition or exceptions noted below. The patient is feeling ok this morning. Pathology is pending. <Karuna Pope - Last Filed: 09/10/17 12:54>
[2017-09-10] MEDS: Potassium Chloride 20 MEQ in Premix Bag 1 BAG IVPB SCH ×2 (08:42→12:45)
[2017-09-10] MEDS: Pantoprazole 40 MG VIAL IVP SCH (08:42)
[2017-09-10] MEDS: Thiamine HCl 200 MG/2 ML VIAL SLOW IVP SCH ×2 (08:42→21:16)
[2017-09-10] MEDS: Multivitamin W/ Minerals 1 TAB PO SCH (08:43)
[2017-09-10] MEDS: Folic Acid 1 MG TAB PO SCH (08:44)
[2017-09-10] MEDS: Enoxaparin Sodium 40 MG/0.4 ML SYRINGE SC SCH (08:44)
--- NOTE | 2017-09-10 13:13 | PRG ---
DATE OF SERVICE: 09/10/2017 Mr. Mejía is sitting up eating. He is doing well, he has no complaints. PHYSICAL EXAMINATION: VITAL SIGNS: Temperature is 98, pulse is 76, blood pressure 152/67. ABDOMEN: Abdomen is nontender. LABORATORY: Hemoglobin is stable at 9.2, sodium 131, potassium 3.1, BUN and creatinine are 8 and 0. 78. ASSESSMENT: Sigmoid mass. Biopsies pending concerning for adenocarcinoma. RECOMMENDATIONS: 1. Await pathology. Consider surgical and oncologic consultations. 2. Alcohol abuse. Patient is not drinking, showed no signs of DTs at this time. Agree with aggress darlyn nutrition.
[2017-09-10] MEDS ORDERED: Melatonin 3 MG TAB PO SCH (21:00)
[2017-09-11 04:57] LABS: Anion Gap 10 mmol/L (10-20); BUN (Urea Nitrogen) 10 mg/dL (8.4-25.7); Calc. Creatinine Clearance 96 mL/min (70-130); Calcium 8.5 mg/dL (7.8-10.44); Carbon Dioxide 31 mmol/L (23-31); Chloride 96 mmol/L (98-107); Estimated GFR-MDRD 89; Glucose 119 mg/dL (80-115); Potassium 3.6 mmol/L (3.5-5.1); Sodium 133 mmol/L (136-145)
[2017-09-11 05:07] LABS: Band 7 % (5-11); Eosinophils 1 % (0-10); Hemoglobin 9.3 g/dL (14.0-18.0); Lymphocytes 35 % (21-51); MDiff Complete? YES; Mean Corpuscular HGB CONC 33.4 g/dL (32.0-36.0); Mean Corpuscular Hemoglobin 30.1 pg (27.0-31.0); Mean Corpuscular Volume 89.9 fl (80.0-94.0); Mean Platelet Volume 5.7 fL (7.4-10.4); Monocytes 8 % (0-10); Neutrophil 49 % (42-75); PLT Morphology Comment Appears Adequate; Platelet Count 299 thou/uL (130-400); RBC Distribution Width 13.7 % (11.5-14.5); Red Blood Cell (RBC) Count 3.08 mill/uL (4.70-6.10); White Blood Cell (WBC) Count 8.2 thou/uL (4.8-10.8)
--- NOTE | 2017-09-11 08:14 | PDOC.FM ---
- Subjective Subjective: Patient denies any issues today. He reports that he slept a little better overnight, but was a little confused when he woke up this AM. Per the nurses overnight, he got confused and was walking in the hallway last night, unsure where he was. He says he thinks he had a weird dream. He reports that he is tolerating PO well, denies any N/V, diarrhea, abdominal pain. - Objective MAR Reviewed: Yes Vital Signs & Weight: Vital Signs (12 hours) Temp Pulse Resp BP Pulse Ox 09/11/17 04:00 98.0 F 71 18 107/63 97 09/11/17 00:00 98.4 F 73 18 96/57 L 96 Weight Weight 85.865 kg I&O: 09/10/17 09/11/17 09/12/17 06:59 06:59 06:59 Intake Total 480 1040 Balance 480 1040 Result Diagrams: 09/11/17 04:29 09/11/17 04:29 <Ashley Murillo - Last Filed: 09/11/17 08:12> - Objective Vital Signs & Weight: Vital Signs (12 hours) Temp Pulse Resp BP BP Pulse Ox 09/11/17 08:00 97.6 F 71 16 102/56 L 102/56 L 100 09/11/17 04:00 98.0 F 71 18 107/63 97 09/11/17 00:00 98.4 F 73 18 96/57 L 96 Weight Weight 85.865 kg I&O: 09/10/17 09/11/17 09/12/17 06:59 06:59 06:59 Intake Total 480 1040 Balance 480 1040 Result Diagrams: 09/11/17 04:29 09/11/17 04:29 <Karuna Pope - Last Filed: 09/11/17 10:45> Phys Exam - Physical Examination Constitutional: NAD disheveled appearing HEENT: moist MMs Respiratory: no wheezing, no rales, no rhonchi, clear to auscultation bilateral Cardiovascular: RRR, no significant murmur, no rub Gastrointestinal: soft, non-tender, no distention, positive bowel sounds Musculoskeletal: no edema, pulses present Neurological: non-focal, moves all 4 limbs Psychiatric: normal affect, A&O x 3 Skin: normal turgor, cap refill <2 seconds <Ashley Murillo - Last Filed: 09/11/17 08:12> Dx/Plan (1) Rectal mass Code(s): K62.9 - DISEASE OF ANUS AND RECTUM, UNSPECIFIED Status: Acute (2) Pulmonary nodules Status: Acute (3) Hyponatremia Code(s): E87.1 - HYPO-OSMOLALITY AND HYPONATREMIA Status: Acute (4) Positive fecal occult blood test Status: Acute (5) Leukocytosis Code(s): D72.829 - ELEVATED WHITE BLOOD CELL COUNT, UNSPECIFIED Status: Acute QualifierTitle: Leukocytosis type: unspecified Qualified Code(s): D72.829 - Elevated white blood cell count, unspecified (6) Alcohol abuse Code(s): F10.10 - ALCOHOL ABUSE, UNCOMPLICATED Status: Acute (7) Elevated AST (SGOT) Code(s): R74.0 - NONSPEC ELEV OF LEVELS OF TRANSAMNS & LACTIC ACID DEHYDRGNSE Status: Acute (8) Hypochloremia Code(s): E87.8 - OTH DISORDERS OF ELECTROLYTE AND FLUID BALANCE, NEC Status: Acute (9) Multiple falls Code(s): R29.6 - REPEATED FALLS Status: Acute (10) Normocytic anemia Code(s): D64.9 - ANEMIA, UNSPECIFIED Status: Acute (11) Former tobacco use Code(s): Z87.891 - PERSONAL HISTORY OF NICOTINE DEPENDENCE Status: Acute (12) Hypokalemia Code(s): E87.6 - HYPOKALEMIA Status: Acute - Plan Plan: Rectal Mass FOBT positive. Probably primary rectal malignancy seen on CT with multiple lymph node mets as well as L adrenal mets and bilateral pulmonary nodules concerning for mets. Colonoscopy revealed large, circumferential, ulcerated mass in the rectum. - Dr. Braswell with GI has been consulted, appreciate recs - Biopsies of the mass pending, plan for treatment once results are back - will likely need to get onc on board - Clear liquid diet - Protonix Multiple Falls No signs of weakness on exam or instability. Likely 2/2 deconditioning from chronic EtOH abuse. CT head was negative. - PT/OT consult - fall precautions Hyponatremia Likely 2/2 beer drinkers potomania with low urine Na of < 20. - fluid restrict to 1800cc - Trend Na Multiple Pulmonary Nodules CT chest shows pulmonary nodules, concerning for metastatic disease. FOBT positive. CEA 7.33. CA 19-[address] abd/pelvis showed rectal mass. These pulmonary nodules are likely metastatic from the rectal mass - Biopsies of rectal mass pending - Will likely need to get onc on board once biopsies result Hypokalemia, resolved Resolved after replacement - Monitor - Replete as needed Hypochloremia - trend Elevated AST - likely 2/2 EtOH use - trend Hyperbilirubinemia T. bili 1.7, d. bili 1.0. - Will trend - Consider RUQ US Normocytic Anemia FOBT positive. Iron studies consistent with Anemia of Chronic Disease. B12 WNL. RBC folate WNL. - trend Rib Fracture - control pain with tylenol and ibuprofen Alcohol Abuse No signs of withdrawal - ASE protocol - Thiamine - Folic Acid - Multivitamin - Tonnage Compilation Clerk about cessation Former Tobacco Abuse Patient has decreased air entry on exam and reports feeling tight sometimes when breathing. Has h/o smoking 1ppd for 15 years about 20 years ago. - Duonebs prn Hiccups Have improved with treatment - Chlorpromazine Dispo: the patient will likely need placement, but this will be difficult pending the treatment plan. CM is on board and working on this, but we will likely no make much headway until there is a treatment plan in place once the biopsy results come back. <Ashley Murillo - Last Filed: 09/11/17 08:12> Attending Addendum - Attending Addendum Date/Time: 09/11/17 1043 I personally evaluated the patient and discussed the management with Dr. Murillo. I agree with the History, Examination, Assessment and Plan documented above with any addition or exceptions noted below. The patient became confused overnight. He is back to baseline. Waiting on pathology results. <Karuna Pope - Last Filed: 09/11/17 10:45>
[2017-09-11] MEDS: Multivitamin W/ Minerals 1 TAB PO SCH (08:55)
[2017-09-11] MEDS: Thiamine HCl 200 MG/2 ML VIAL SLOW IVP SCH ×2 (08:56→20:31)
[2017-09-11] MEDS: Folic Acid 1 MG TAB PO SCH (08:56)
[2017-09-11] MEDS: Enoxaparin Sodium 40 MG/0.4 ML SYRINGE SC SCH (08:56)
[2017-09-11] MEDS: Pantoprazole 40 MG VIAL IVP SCH (08:56)
--- NOTE | 2017-09-12 01:07 | PRG ---
DATE OF SERVICE: 09/11/2017 SUBJECTIVE: Mr. Mejía is without complaints. He wonders why he is not getting to eat. OBJECTIVE: VITAL SIGNS: Temperature is 97.6, blood pressure is 103/57. ABDOMEN: Nontender. LABORATORY STUDIES: White count 8.2, hemoglobin 9.3, platelet count 299. Electrolytes normal. Path ology on colon biopsies shows adenocarcinoma. GE junction, Newman's, no dysplasia. Stomach, no H. pylori. ASSESSMENT: Invasive adenocarcinoma of the rectosigmoid colon. RECOMMENDATIONS: Surgical and oncologic consultation. At this time, it is not likely be surgery fernando orrow, we are going to let him eat some food. At this time, we will follow . Please do not hes itate to contact me if needed.
[2017-09-12 04:59] LABS: Anion Gap 10 mmol/L (10-20); BUN (Urea Nitrogen) 14 mg/dL (8.4-25.7); Calc. Creatinine Clearance 103 mL/min (70-130); Calcium 8.5 mg/dL (7.8-10.44); Carbon Dioxide 31 mmol/L (23-31); Chloride 94 mmol/L (98-107); Estimated GFR-MDRD Greater than 90; Glucose 102 mg/dL (80-115); Potassium 3.4 mmol/L (3.5-5.1); Sodium 132 mmol/L (136-145)
[2017-09-12 05:39] LABS: Band 2 % (5-11); Lymphocytes 16 % (21-51); MDiff Complete? YES; Mean Corpuscular HGB CONC 32.5 g/dL (32.0-36.0); Mean Corpuscular Hemoglobin 29.5 pg (27.0-31.0); Mean Corpuscular Volume 90.6 fl (80.0-94.0); Monocytes 8 % (0-10); Neutrophil 74 % (42-75); PLT Morphology Comment Appears Adequate; Platelet Count 333 thou/uL (130-400); RBC Distribution Width 13.7 % (11.5-14.5); RBC Morphology Normal; Red Blood Cell (RBC) Count 3.06 mill/uL (4.70-6.10); White Blood Cell (WBC) Count 8.3 thou/uL (4.8-10.8)
[2017-09-12] MEDS ORDERED: Potassium Chloride 20 MEQ TAB PO SCH (07:00)
[2017-09-12] MEDS: Thiamine HCl 200 MG/2 ML VIAL SLOW IVP SCH ×2 (08:14→20:43)
[2017-09-12] MEDS: Multivitamin W/ Minerals 1 TAB PO SCH (08:14)
[2017-09-12] MEDS: Pantoprazole 40 MG VIAL IVP SCH (08:14)
[2017-09-12] MEDS: Enoxaparin Sodium 40 MG/0.4 ML SYRINGE SC SCH (08:14)
[2017-09-12] MEDS: Folic Acid 1 MG TAB PO SCH (08:14)
--- NOTE | 2017-09-12 09:09 | PDOC.FM ---
- Subjective Subjective: Patient denies any issues overnight. He didn't sleep very well. He denies diarrhea, N/V, abdominal pain, chest pain, SOB. He was glad to be able to eat regular food and tolerated it well. - Objective MAR Reviewed: Yes Vital Signs & Weight: Vital Signs (12 hours) Temp Pulse Resp BP Pulse Ox 09/12/17 08:00 98.1 F 82 16 101/49 L 98 09/11/17 23:48 98.4 F 88 17 91/51 L 97 Weight Weight 87.997 kg I&O: 09/11/17 09/12/17 09/13/17 06:59 06:59 06:59 Intake Total 1040 2200 Output Total 250 Balance 1040 1950 Result Diagrams: 09/12/17 03:34 09/12/17 03:34 <Ashley Murillo - Last Filed: 09/12/17 09:07> - Objective Vital Signs & Weight: Vital Signs (12 hours) Temp Pulse Resp BP BP Pulse Ox 09/12/17 17:00 97.8 F 85 16 124/68 96 09/12/17 09:00 111/66 09/12/17 08:00 98.1 F 82 16 101/49 L 98 Weight Weight 87.997 kg I&O: 09/11/17 09/12/17 09/13/17 06:59 06:59 06:59 Intake Total 1040 2200 Output Total 250 Balance 1040 1950 Result Diagrams: 09/12/17 03:34 09/12/17 03:34 <Karuna Pope - Last Filed: 09/12/17 17:14> Phys Exam - Physical Examination Constitutional: NAD HEENT: moist MMs Respiratory: no wheezing, no rales, no rhonchi, clear to auscultation bilateral Cardiovascular: RRR, no significant murmur, no rub Gastrointestinal: soft, non-tender, no distention, positive bowel sounds Musculoskeletal: no edema, pulses present Neurological: non-focal, moves all 4 limbs Psychiatric: normal affect, A&O x 3 Skin: normal turgor, cap refill <2 seconds <Ashley Murillo - Last Filed: 09/12/17 09:07> Dx/Plan (1) Adenocarcinoma of colon Code(s): C18.9 - MALIGNANT NEOPLASM OF COLON, UNSPECIFIED Status: Acute (2) Rectal mass Code(s): K62.9 - DISEASE OF ANUS AND RECTUM, UNSPECIFIED Status: Acute (3) Pulmonary nodules Status: Acute (4) Hyponatremia Code(s): E87.1 - HYPO-OSMOLALITY AND HYPONATREMIA Status: Acute (5) Positive fecal occult blood test Status: Acute (6) Leukocytosis Code(s): D72.829 - ELEVATED WHITE BLOOD CELL COUNT, UNSPECIFIED Status: Acute QualifierTitle: Leukocytosis type: unspecified Qualified Code(s): D72.829 - Elevated white blood cell count, unspecified (7) Alcohol abuse Code(s): F10.10 - ALCOHOL ABUSE, UNCOMPLICATED Status: Acute (8) Elevated AST (SGOT) Code(s): R74.0 - NONSPEC ELEV OF LEVELS OF TRANSAMNS & LACTIC ACID DEHYDRGNSE Status: Acute (9) Hypochloremia Code(s): E87.8 - OTH DISORDERS OF ELECTROLYTE AND FLUID BALANCE, NEC Status: Acute (10) Multiple falls Code(s): R29.6 - REPEATED FALLS Status: Acute (11) Normocytic anemia Code(s): D64.9 - ANEMIA, UNSPECIFIED Status: Acute (12) Former tobacco use Code(s): Z87.891 - PERSONAL HISTORY OF NICOTINE DEPENDENCE Status: Acute (13) Hypokalemia Code(s): E87.6 - HYPOKALEMIA Status: Acute - Plan 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 Probably primary rectal malignancy seen on CT with multiple lymph node mets as well as L adrenal mets and bilateral pulmonary nodules concerning for mets. Colonoscopy revealed large, circumferential, ulcerated mass in the rectum. Moderately to poorly differentiated Adenocarcinoma on pathology. - Dr. Braswell with GI has been consulted, appreciate recs - Onc has been consulted, appreciate recs. - Regular diet - Protonix Multiple Falls No signs of weakness on exam or instability. Likely 2/2 deconditioning from chronic EtOH abuse. CT head was negative. - PT/OT consult - fall precautions Hyponatremia Likely 2/2 beer drinkers potomania with low urine Na of < 20. Improving - fluid restrict to 1800cc - Trend Na Multiple Pulmonary Nodules CT chest shows pulmonary nodules, concerning for metastatic disease. FOBT positive. CEA 7.33. CA 19-[address] abd/pelvis showed rectal mass. These pulmonary nodules are likely metastatic from the adenocarcinoma of the colon. - Onc consulted, appreciate recs Hypokalemia 3.4 today - Monitor - Will replete Hypochloremia - trend Elevated AST - likely 2/2 EtOH use - trend Hyperbilirubinemia T. bili 1.7, d. bili 1.0. - Will trend - Consider RUQ US Normocytic Anemia FOBT positive. Iron studies consistent with Anemia of Chronic Disease. B12 WNL. RBC folate WNL. - trend Rib Fracture - control pain with tylenol and ibuprofen Alcohol Abuse No signs of withdrawal - ASE protocol - Thiamine - Folic Acid - Multivitamin - Web Analytics Developer about cessation Former Tobacco Abuse Patient has decreased air entry on exam and reports feeling tight sometimes when breathing. Has h/o smoking 1ppd for 15 years about 20 years ago. - Duonebs prn Hiccups Have improved with treatment - Chlorpromazine Dispo: the patient will likely need placement, but this will be difficult pending the treatment plan. CM is on board and working on this, but we will likely no make much headway until there is a treatment plan in place <Ashley Murillo - Last Filed: 09/12/17 09:07> Attending Addendum - Attending Addendum Date/Time: 09/12/17 8323 I personally evaluated the patient and discussed the management with Dr. Murillo. I agree with the History, Examination, Assessment and Plan documented above with any addition or exceptions noted below. The patient's pathology shows poorly differentiated adenocarcinoma. Oncology has been consulted. Inpt rehab screen will be placed based on PT recommendations. <Karuna Pope - Last Filed: 09/12/17 17:14>
--- NOTE | 2017-09-12 21:01 | CON ---
DATE OF CONSULTATION: 09/12/2017 REASON FOR CONSULTATION: Rectal cancer. HISTORY OF PRESENT ILLNESS: Mr. Mejía is a 67-year-old male who presented to the emergency room for evaluation after a fall at home. He has a history of alcohol abuse, drinking a 12 pack of beer daily. He had a chest CT, which showed a nondisplaced right rib fracture. He had multiple bila teral pulmonary nodules which were suspicious for metastatic disease. He then underwent an abdominal and pelvis CT. He had a large necrotic left periaortic lymph node measuring 1.4 x 1.4 cm. There wa s an enlarged left periaortic lymph node measuring 1.7 x 1.0 cm. There were multiple small retroperi toneal lymph nodes. There was a lymph node posterior to the left kidney. He had an abnormal soft ti ssue mass involving the left aspect of the distal sigmoid colon and rectum measuring 2.2 x 1.2 cm. S he underwent endoscopy. Pathology returned moderate to poorly differentiated invasive adenocarcinoma . The patient denies any history of GI bleed. He does admit to occasional diarrhea and hiccups, but no change in bowel function or recent weight loss. PAST MEDICAL HISTORY: Alcohol use. PAST SURGICAL HISTORY: None. ALLERGIES: No known drug allergies. HOME MEDICATIONS: None. FAMILY HISTORY: No history of GI malignancy. SOCIAL HISTORY: He is , has 3 daughters. He lives alone, drinks a 12 pack of beer daily. Qu it smoking cigarettes approximately 30 years ago. REVIEW OF SYSTEMS: Twelve point review of systems is negative except for noted in HPI. PHYSICAL EXAMINATION: VITAL SIGNS: Temperature 98.1, pulse is 82, respiratory rate 16, BP is 111/66. He is 98% on room ai r. GENERAL: This is a disheveled male in no acute distress. HEENT: Normocephalic, atraumatic. Pupils are equal and reactive to light. He has got poor dentitio n. NECK: Supple. CARDIOVASCULAR: Regular rate and rhythm. LUNGS: Clear. ABDOMEN: Soft, nontender, bowel sounds are positive. EXTREMITIES: There is no clubbing, cyanosis or edema. SKIN: No rash. HEMATOLOGIC: There is no petechia or purpura. NEUROLOGIC: Nonfocal. PSYCHIATRIC: The patient is alert and oriented and appropriate. PERTINENT LABORATORY AND X-RAYS: Current WBCs are 8.3, hemoglobin 9.0, hematocrit 27.7, platelets ar e 333,000. He has 74% neutrophils, 16% lymphocytes. PT is 12.9, INR is 1.0, PTT is 29.6. Sodium is 132, potassium 3.4, chloride 94, CO2 is 31, BUN is 14, creatinine 0.82, calcium is 9.1. CEA is 7.33 . Radiology per HPI. ASSESSMENT: 1. Rectal adenocarcinoma with likely lung mets. 2. History of alcohol abuse. DISCUSSION: The patient is not a candidate for surgical resection at this time. He needs neoadjuvan t chemotherapy. This was discussed with the patient in detail. If he chooses chemotherapy, he will need a [employer]. He understands that he needs to stop alcohol use. For treatment, he is considering going to a snf or skilled unit. We did discuss that it is unlikely he would receive treatm ent if he were to go to a snf. audit manager has been consulted and we will discuss further. I did make a followup appointment for him to see Dr. Chapman in the clinic. Thank you for the consult. We will follow his hospital course remotely.
[2017-09-13 05:46] LABS: #Eosinphils 0.1 thou/uL (0.0-0.7); #Lymphocytes 1.9 thou/uL (1.20-3.40); #Neutrophils 4.2 thou/uL (1.40-6.50); %Basophils 0.1 % (0.0-1.0); %Eosinophils 1.2 % (0.0-10.0); %Lymphocytes 26.4 % (21.0-51.0); %Monocytes 13.9 % (0.0-10.0); %Neutrophils 58.3 % (42.0-75.0); Mean Corpuscular HGB CONC 32.2 g/dL (32.0-36.0); Mean Corpuscular Hemoglobin 29.5 pg (27.0-31.0); Mean Corpuscular Volume 91.7 fl (80.0-94.0); Mean Platelet Volume 5.8 fL (7.4-10.4); Platelet Count 344 thou/uL (130-400); RBC Distribution Width 13.6 % (11.5-14.5); Red Blood Cell (RBC) Count 3.06 mill/uL (4.70-6.10); White Blood Cell (WBC) Count 7.2 thou/uL (4.8-10.8)
[2017-09-13 05:58] LABS: Anion Gap 10 mmol/L (10-20); BUN (Urea Nitrogen) 15 mg/dL (8.4-25.7); Calc. Creatinine Clearance 108 mL/min (70-130); Calcium 8.5 mg/dL (7.8-10.44); Carbon Dioxide 30 mmol/L (23-31); Chloride 99 mmol/L (98-107); Estimated GFR-MDRD Greater than 90; Glucose 95 mg/dL (80-115); Potassium 4.1 mmol/L (3.5-5.1); Sodium 135 mmol/L (136-145)
--- NOTE | 2017-09-13 07:29 | PDOC.FM ---
- Subjective Subjective: Patient resting comfortably this AM. He reports that he is tolerating PO well. He denies any chest pain, SOB, N/V, diarrhea, abdominal pain. He still feels weak in his legs, but he has been improving with PT. - Objective MAR Reviewed: Yes Vital Signs & Weight: Vital Signs (12 hours) Temp Pulse Resp BP BP Pulse Ox 09/13/17 05:00 98.4 F 69 20 113/68 113/68 98 09/13/17 00:02 124/68 09/13/17 00:00 98.1 F 81 18 124/68 98 09/12/17 21:16 98.0 F 83 20 116/67 99 09/12/17 20:43 116/67 Weight Weight 88.314 kg I&O: 09/12/17 09/13/17 09/14/17 06:59 06:59 06:59 Intake Total 2200 1800 Output Total 250 Balance 1950 1800 Result Diagrams: 09/13/17 05:03 09/13/17 05:03 <Ashley Murillo - Last Filed: 09/13/17 07:26> - Objective Vital Signs & Weight: Vital Signs (12 hours) Temp Pulse Resp BP BP Pulse Ox 09/13/17 08:29 99.0 F 88 16 102/63 99 09/13/17 08:00 99.0 F 88 16 99 09/13/17 05:00 98.4 F 69 20 113/68 113/68 98 09/13/17 00:02 124/68 09/13/17 00:00 98.1 F 81 18 124/68 98 Weight Weight 194 lb 11.2 oz I&O: 09/12/17 09/13/17 09/14/17 06:59 06:59 06:59 Intake Total 2200 1800 Output Total 250 Balance 1950 1800 Result Diagrams: 09/13/17 05:03 09/13/17 05:03 <Agustin Horner - Last Filed: 09/13/17 10:33> Phys Exam - Physical Examination Constitutional: NAD HEENT: moist MMs Respiratory: no wheezing, no rales, no rhonchi, clear to auscultation bilateral Cardiovascular: RRR, no significant murmur, no rub Gastrointestinal: soft, non-tender, no distention, positive bowel sounds Musculoskeletal: no edema, pulses present Neurological: non-focal, moves all 4 limbs Psychiatric: normal affect, A&O x 3 Skin: normal turgor, cap refill <2 seconds <Ashley Murillo - Last Filed: 09/13/17 07:26> Dx/Plan (1) Adenocarcinoma of colon Code(s): C18.9 - MALIGNANT NEOPLASM OF COLON, UNSPECIFIED Status: Acute (2) Rectal mass Code(s): K62.9 - DISEASE OF ANUS AND RECTUM, UNSPECIFIED Status: Acute (3) Pulmonary nodules Status: Acute (4) Hyponatremia Code(s): E87.1 - HYPO-OSMOLALITY AND HYPONATREMIA Status: Acute (5) Positive fecal occult blood test Status: Acute (6) Leukocytosis Code(s): D72.829 - ELEVATED WHITE BLOOD CELL COUNT, UNSPECIFIED Status: Acute QualifierTitle: Leukocytosis type: unspecified Qualified Code(s): D72.829 - Elevated white blood cell count, unspecified (7) Alcohol abuse Code(s): F10.10 - ALCOHOL ABUSE, UNCOMPLICATED Status: Acute (8) Elevated AST (SGOT) Code(s): R74.0 - NONSPEC ELEV OF LEVELS OF TRANSAMNS & LACTIC ACID DEHYDRGNSE Status: Acute (9) Hypochloremia Code(s): E87.8 - OTH DISORDERS OF ELECTROLYTE AND FLUID BALANCE, NEC Status: Acute (10) Multiple falls Code(s): R29.6 - REPEATED FALLS Status: Acute (11) Normocytic anemia Code(s): D64.9 - ANEMIA, UNSPECIFIED Status: Acute (12) Former tobacco use Code(s): Z87.891 - PERSONAL HISTORY OF NICOTINE DEPENDENCE Status: Acute (13) Hypokalemia Code(s): E87.6 - HYPOKALEMIA Status: Acute - Plan 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 Probably primary rectal malignancy seen on CT with multiple lymph node mets as well as L adrenal mets and bilateral pulmonary nodules concerning for mets. Colonoscopy revealed large, circumferential, ulcerated mass in the rectum. Moderately to poorly differentiated Adenocarcinoma on pathology. - Dr. Braswell with GI has been consulted, appreciate recs - Onc has been consulted, appreciate recs - plan for neoadjuvant chemotherapy. They have arranged an appt outpt for him to f/u to get this started. - Regular diet - Protonix Multiple Falls No signs of weakness on exam or instability. Likely 2/2 deconditioning from chronic EtOH abuse. CT head was negative. - PT/OT consult - Rehab screen - fall precautions Hyponatremia Likely 2/2 beer drinkers potomania with low urine Na of < 20. Improving - fluid restrict to 1800cc - Trend Na Multiple Pulmonary Nodules CT chest shows pulmonary nodules, concerning for metastatic disease. FOBT positive. CEA 7.33. CA 19-[address] abd/pelvis showed rectal mass. These pulmonary nodules are likely metastatic from the adenocarcinoma of the colon. - Onc consulted, appreciate recs Hypokalemia, resolved - Monitor - Will replete as needed Hypochloremia - trend Elevated AST - likely 2/2 EtOH use - trend Hyperbilirubinemia T. bili 1.7, d. bili 1.0. - Will trend - Consider RUQ US Normocytic Anemia FOBT positive. Iron studies consistent with Anemia of Chronic Disease. B12 WNL. RBC folate WNL. - trend Rib Fracture - control pain with tylenol and ibuprofen Alcohol Abuse No signs of withdrawal - ASE protocol - Thiamine - Folic Acid - Multivitamin - Heating Element Builder about cessation Former Tobacco Abuse Patient has decreased air entry on exam and reports feeling tight sometimes when breathing. Has h/o smoking 1ppd for 15 years about 20 years ago. - Duonebs prn Hiccups Have improved with treatment - Chlorpromazine Dispo: The patient would benefit from rehab due to his weakness prior to going home. Attempting to get this arranged. <Ashley Murillo - Last Filed: 09/13/17 07:26> Attending Addendum - Attending Addendum Date/Time: 09/13/17 1032 I personally evaluated the patient and discussed the management with Dr. Murillo I agree with the History, Examination, Assessment and Plan documented above with any addition or exceptions noted below. The patient is being evaluated for invasive rectosigmoid adenocarcinoma. He will likely need to go to rehab prior to going home. He will follow-up with oncology outpatient for neoadjuvant chemotherapy. <Agustin Horner - Last Filed: 09/13/17 10:33>
[2017-09-13] MEDS: Folic Acid 1 MG TAB PO SCH (07:55)
[2017-09-13] MEDS: Thiamine HCl 200 MG/2 ML VIAL SLOW IVP SCH ×2 (07:55→20:26)
[2017-09-13] MEDS: Multivitamin W/ Minerals 1 TAB PO SCH (07:55)
[2017-09-13] MEDS: Pantoprazole 40 MG VIAL IVP SCH (07:56)
[2017-09-13] MEDS: Enoxaparin Sodium 40 MG/0.4 ML SYRINGE SC SCH (07:56)
[2017-09-14 05:13] LABS: #Eosinphils 0.1 thou/uL (0.0-0.7); #Monocytes 0.8 thou/uL (0.11-0.59); #Neutrophils 5.1 thou/uL (1.40-6.50); %Basophils 0.5 % (0.0-1.0); %Eosinophils 1.5 % (0.0-10.0); %Lymphocytes 24.9 % (21.0-51.0); %Monocytes 9.7 % (0.0-10.0); %Neutrophils 63.3 % (42.0-75.0); Hemoglobin 9.6 g/dL (14.0-18.0); Mean Corpuscular HGB CONC 33.1 g/dL (32.0-36.0); Mean Corpuscular Hemoglobin 30.8 pg (27.0-31.0); Mean Platelet Volume 6.1 fL (7.4-10.4); Platelet Count 385 thou/uL (130-400); RBC Distribution Width 13.6 % (11.5-14.5); Red Blood Cell (RBC) Count 3.11 mill/uL (4.70-6.10)
[2017-09-14 05:20] LABS: Anion Gap 12 mmol/L (10-20); BUN (Urea Nitrogen) 17 mg/dL (8.4-25.7); Calc. Creatinine Clearance 105 mL/min (70-130); Carbon Dioxide 29 mmol/L (23-31); Chloride 99 mmol/L (98-107); Estimated GFR-MDRD Greater than 90; Glucose 125 mg/dL (80-115); Potassium 3.8 mmol/L (3.5-5.1); Sodium 136 mmol/L (136-145)
[2017-09-14] MEDS: Thiamine HCl 200 MG/2 ML VIAL SLOW IVP SCH ×2 (07:28→20:20)
[2017-09-14] MEDS: Multivitamin W/ Minerals 1 TAB PO SCH (07:28)
[2017-09-14] MEDS: Folic Acid 1 MG TAB PO SCH (07:28)
[2017-09-14] MEDS: Pantoprazole 40 MG VIAL IVP SCH (07:29)
[2017-09-14] MEDS: Enoxaparin Sodium 40 MG/0.4 ML SYRINGE SC SCH (07:29)
--- NOTE | 2017-09-14 07:56 | PDOC.FM ---
- Subjective Subjective: The patient is doing well today. No concerns or complaints. He is tolerating PO well and has no abdominal pain, nausea, vomiting, diarrhea, chest pain, SOB. - Objective MAR Reviewed: Yes Vital Signs & Weight: Vital Signs (12 hours) Temp Pulse Resp BP BP Pulse Ox 09/14/17 07:51 97.3 F L 75 16 111/65 111/65 98 18 03:54 130/72 09/14/17 03:47 97.5 F L 75 18 130/72 98 09/14/17 00:28 97.9 F 75 18 118/72 97 09/14/17 00:09 118/72 09/13/17 21:02 98.6 F 85 18 105/60 100 09/13/17 20:24 98.6 F 85 18 105/60 100 Weight Weight 86.954 kg I&O: 09/13/17 09/14/17 09/15/17 06:59 06:59 06:59 Intake Total 1820 2057 Output Total 1 Balance 1820 2056 Result Diagrams: 09/14/17 04:22 09/14/17 04:22 <Ashley Murillo - Last Filed: 09/14/17 07:54> - Objective Vital Signs & Weight: Vital Signs (12 hours) Temp Pulse Resp BP BP Pulse Ox 09/14/17 07:52 97.3 F L 75 16 09/14/17 07:51 97.3 F L 75 16 111/65 111/65 98 09/14/17 03:54 130/72 09/14/17 03:47 97.5 F L 75 18 130/72 98 09/14/17 00:28 97.9 F 75 18 118/72 97 09/14/17 00:09 118/72 Weight Weight 191 lb 11.2 oz I&O: 09/13/17 09/14/17 09/15/17 06:59 06:59 06:59 Intake Total 1820 2057 Output Total 1 Balance 1820 2056 Result Diagrams: 09/14/17 04:22 09/14/17 04:22 <Agustin Horner - Last Filed: 09/14/17 10:30> Phys Exam - Physical Examination Constitutional: NAD HEENT: moist MMs Respiratory: no wheezing, no rales, no rhonchi, clear to auscultation bilateral Cardiovascular: RRR, no significant murmur, no rub Gastrointestinal: soft, non-tender, no distention, positive bowel sounds Musculoskeletal: no edema, pulses present Neurological: non-focal, normal sensation Psychiatric: normal affect, A&O x 3 Skin: normal turgor, cap refill <2 seconds <Ashley Murillo - Last Filed: 09/14/17 07:54> Dx/Plan (1) Adenocarcinoma of colon Code(s): C18.9 - MALIGNANT NEOPLASM OF COLON, UNSPECIFIED Status: Acute (2) Rectal mass Code(s): K62.9 - DISEASE OF ANUS AND RECTUM, UNSPECIFIED Status: Acute (3) Pulmonary nodules Status: Acute (4) Hyponatremia Code(s): E87.1 - HYPO-OSMOLALITY AND HYPONATREMIA Status: Acute (5) Positive fecal occult blood test Status: Acute (6) Leukocytosis Code(s): D72.829 - ELEVATED WHITE BLOOD CELL COUNT, UNSPECIFIED Status: Acute QualifierTitle: Leukocytosis type: unspecified Qualified Code(s): D72.829 - Elevated white blood cell count, unspecified (7) Alcohol abuse Code(s): F10.10 - ALCOHOL ABUSE, UNCOMPLICATED Status: Acute (8) Elevated AST (SGOT) Code(s): R74.0 - NONSPEC ELEV OF LEVELS OF TRANSAMNS & LACTIC ACID DEHYDRGNSE Status: Acute (9) Hypochloremia Code(s): E87.8 - OTH DISORDERS OF ELECTROLYTE AND FLUID BALANCE, NEC Status: Acute (10) Multiple falls Code(s): R29.6 - REPEATED FALLS Status: Acute (11) Normocytic anemia Code(s): D64.9 - ANEMIA, UNSPECIFIED Status: Acute (12) Former tobacco use Code(s): Z87.891 - PERSONAL HISTORY OF NICOTINE DEPENDENCE Status: Acute (13) Hypokalemia Code(s): E87.6 - HYPOKALEMIA Status: Acute - Plan 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 Probably primary rectal malignancy seen on CT with multiple lymph node mets as well as L adrenal mets and bilateral pulmonary nodules concerning for mets. Colonoscopy revealed large, circumferential, ulcerated mass in the rectum. Moderately to poorly differentiated Adenocarcinoma on pathology. - Dr. Derbes with GI has been consulted, appreciate recs - Onc has been consulted, appreciate recs - plan for neoadjuvant chemotherapy. They have arranged an appt outpt for him to f/u to get this started. - Regular diet - Protonix Multiple Falls No signs of weakness on exam or instability. Likely 2/2 deconditioning from chronic EtOH abuse. CT head was negative. - PT/OT consult - Rehab screen - fall precautions Hyponatremia Likely 2/2 beer drinkers potomania with low urine Na of < 20. Improving - fluid restrict to 1800cc - Trend Na Multiple Pulmonary Nodules CT chest shows pulmonary nodules, concerning for metastatic disease. FOBT positive. CEA 7.33. CA 19-[address] abd/pelvis showed rectal mass. These pulmonary nodules are likely metastatic from the adenocarcinoma of the colon. - Onc consulted, appreciate recs Hypokalemia, resolved - Monitor - Will replete as needed Hypochloremia - trend Elevated AST - likely 2/2 EtOH use - trend Hyperbilirubinemia T. bili 1.7, d. bili 1.0. - Will trend - Consider RUQ US Normocytic Anemia FOBT positive. Iron studies consistent with Anemia of Chronic Disease. B12 WNL. RBC folate WNL. - trend Rib Fracture - control pain with tylenol and ibuprofen Alcohol Abuse No signs of withdrawal - ASE protocol - Thiamine - Folic Acid - Multivitamin - Automobile Insurance Claim Examiner about cessation Former Tobacco Abuse Patient has decreased air entry on exam and reports feeling tight sometimes when breathing. Has h/o smoking 1ppd for 15 years about 20 years ago. - Duonebs prn Hiccups Have improved with treatment - Chlorpromazine Dispo: The patient would benefit from rehab due to his weakness prior to going home. Attempting to get this arranged, however pt doesn't have Medicare part B so he would have to pay some money out of pocket and does not have that money. Looking into other options at this point. <Ashley Murillo - Last Filed: 09/14/17 07:54> Attending Addendum - Attending Addendum Date/Time: 09/14/17 1029 I personally evaluated the patient and discussed the management with Dr. Murillo I agree with the History, Examination, Assessment and Plan documented above with any addition or exceptions noted below. Patient with newly diagnosed adenocarcinoma. Awaiting case management assistance with placement for rehab and then will need chemotherapy. Continue PT /OT here. <Agustin Horner - Last Filed: 09/14/17 10:30>
[2017-09-15 05:33] LABS: #Eosinphils 0.1 thou/uL (0.0-0.7); #Lymphocytes 2.2 thou/uL (1.20-3.40); #Monocytes 1.2 thou/uL (0.11-0.59); #Neutrophils 5.7 thou/uL (1.40-6.50); %Basophils 0.4 % (0.0-1.0); %Lymphocytes 23.8 % (21.0-51.0); %Neutrophils 61.9 % (42.0-75.0); Hemoglobin 8.9 g/dL (14.0-18.0); Mean Corpuscular Hemoglobin 29.3 pg (27.0-31.0); Mean Corpuscular Volume 91.5 fl (80.0-94.0); Mean Platelet Volume 5.9 fL (7.4-10.4); Platelet Count 425 thou/uL (130-400); RBC Distribution Width 13.8 % (11.5-14.5); Red Blood Cell (RBC) Count 3.03 mill/uL (4.70-6.10); White Blood Cell (WBC) Count 9.3 thou/uL (4.8-10.8)
[2017-09-15 05:44] LABS: Anion Gap 7 mmol/L (10-20); BUN (Urea Nitrogen) 18 mg/dL (8.4-25.7); Calc. Creatinine Clearance 100 mL/min (70-130); Calcium 8.6 mg/dL (7.8-10.44); Carbon Dioxide 30 mmol/L (23-31); Chloride 102 mmol/L (98-107); Estimated GFR-MDRD 88; Glucose 82 mg/dL (80-115); Potassium 3.9 mmol/L (3.5-5.1); Sodium 135 mmol/L (136-145)
--- NOTE | 2017-09-15 06:00 | PDOC.FM ---
- Subjective Subjective: Patient states he slept well. He has had no pain, but admits to generalized weakness. He does not feel steady on his feet independently yet and would like to go somewhere for rehab. No other complaints. - Objective Vital Signs & Weight: Vital Signs (12 hours) Temp Pulse Resp BP BP Pulse Ox 09/15/17 04:20 97.9 F 77 18 121/73 99 09/15/17 04:00 121/73 09/15/17 00:00 98.1 F 74 18 109/66 109/66 97 09/14/17 20:00 98.2 F 90 16 133/70 133/70 100 Weight Weight 87.572 kg I&O: 09/13/17 09/14/17 09/15/17 06:59 06:59 06:59 Intake Total 1820 2057 1987 Output Total 1 Balance 1820 2056 1987 Result Diagrams: 09/15/17 05:05 09/15/17 05:05 <Franklyn Buck - Last Filed: 09/15/17 08:24> - Objective Vital Signs & Weight: Vital Signs (12 hours) Temp Pulse Resp BP BP Pulse Ox 09/15/17 08:18 98.5 F 90 18 112/67 100 09/15/17 08:00 98.5 F 90 18 112/67 100 09/15/17 04:20 97.9 F 77 18 121/73 99 09/15/17 04:00 121/73 09/15/17 00:00 98.1 F 74 18 109/66 109/66 97 Weight Weight 87.572 kg I&O: 09/14/17 09/15/17 09/16/17 06:59 06:59 06:59 Intake Total 2057 1987 Output Total 1 Balance 2056 1987 Result Diagrams: 09/15/17 05:05 09/15/17 05:05 <Garth Timmons - Last Filed: 09/15/17 11:34> Phys Exam - Physical Examination HEENT: moist MMs Neck: no nodes Respiratory: no wheezing, clear to auscultation bilateral Cardiovascular: RRR, no significant murmur Gastrointestinal: soft, non-tender, no distention, positive bowel sounds Musculoskeletal: no edema, pulses present Neurological: non-focal, normal sensation, moves all 4 limbs Lymphatic: no nodes Psychiatric: normal affect, A&O x 3 Skin: no rash <Franklyn Buck - Last Filed: 09/15/17 08:24> Dx/Plan - Plan Plan: Adenocarcinoma of Rectosigmoid Colon - Moderately to poorly differentiated Adenocarcinoma on pathology. - Dr. Braswell with GI has been consulted, appreciate recs - Onc has been consulted, appreciate recs - plan for neoadjuvant chemotherapy. They have arranged an appt outpt for him to f/u to get this started. - Regular diet - Protonix Multiple Falls - PT/OT consult - Rehab screen - fall precautions - Working on Rehab placement Hyponatremia Likely 2/2 beer drinkers potomania with low urine Na of < 20. Improving - fluid restrict to 1800cc - Trend Na, 135 this AM Multiple Pulmonary Nodules - pulmonary nodules are likely metastatic from the adenocarcinoma of the colon. - Onc consulted, appreciate recs Hypokalemia, resolved - Monitor - Will replete as needed Hypochloremia - trend - resolved Elevated AST - likely 2/2 EtOH use - trend Hyperbilirubinemia T. bili 1.7, d. bili 1.0. - Will trend - Consider RUQ US Normocytic Anemia FOBT positive. Iron studies consistent with Anemia of Chronic Disease. B12 WNL. RBC folate WNL. - trend Rib Fracture - control pain with tylenol and ibuprofen Alcohol Abuse No signs of withdrawal - ASE protocol - Thiamine - Folic Acid - Multivitamin - Inside Sales Engineer about cessation Former Tobacco Abuse Patient has decreased air entry on exam and reports feeling tight sometimes when breathing. Has h/o smoking 1ppd for 15 years about 20 years ago. - Duonebs prn Hiccups Have improved with treatment - Chlorpromazine Disposition: Will work with Case Management for placement for rehab. Otherwise stable for discharge. <Franklyn Buck - Last Filed: 09/15/17 08:24> Attending Addendum - Attending Addendum Date/Time: 09/15/17 1132 I personally evaluated the patient and discussed the management with Dr. Buck. I agree with the History, Examination, Assessment and Plan documented above with any addition or exceptions noted below. Patient denies complaints. Reports a desire to get some fresh air and we indicated to him that he was allowed to do that. Awaiting placement at alternative rehab facility or SNF. Onc plans to follow up as outpatient only. Meds will be changed to PO today. Should be nearing point of discharge once placement arranged. <Garth Timmons - Last Filed: 09/15/17 11:34>
[2017-09-15] MEDS: Multivitamin W/ Minerals 1 TAB PO SCH (08:28)
[2017-09-15] MEDS: Folic Acid 1 MG TAB PO SCH (08:28)
[2017-09-15] MEDS: Pantoprazole 40 MG VIAL IVP SCH (08:29)
[2017-09-15] MEDS: Enoxaparin Sodium 40 MG/0.4 ML SYRINGE SC SCH (08:29)
[2017-09-15] MEDS: Thiamine HCl 200 MG/2 ML VIAL SLOW IVP SCH (08:30)
[2017-09-16 05:54] LABS: #Basophils 0.1 thou/uL (0.0-0.2); #Eosinphils 0.1 thou/uL (0.0-0.7); #Lymphocytes 1.7 thou/uL (1.20-3.40); #Monocytes 0.9 thou/uL (0.11-0.59); #Neutrophils 4.9 thou/uL (1.40-6.50); %Basophils 0.8 % (0.0-1.0); %Eosinophils 1.6 % (0.0-10.0); %Lymphocytes 22.1 % (21.0-51.0); %Monocytes 11.2 % (0.0-10.0); %Neutrophils 64.2 % (42.0-75.0); Mean Corpuscular HGB CONC 31.9 g/dL (32.0-36.0); Mean Corpuscular Hemoglobin 29.2 pg (27.0-31.0); Mean Corpuscular Volume 91.4 fl (80.0-94.0); Mean Platelet Volume 5.8 fL (7.4-10.4); Platelet Count 482 thou/uL (130-400); RBC Distribution Width 13.6 % (11.5-14.5); Red Blood Cell (RBC) Count 3.08 mill/uL (4.70-6.10); White Blood Cell (WBC) Count 7.6 thou/uL (4.8-10.8)
[2017-09-16 06:01] LABS: Anion Gap 10 mmol/L (10-20); BUN (Urea Nitrogen) 16 mg/dL (8.4-25.7); Calc. Creatinine Clearance 98 mL/min (70-130); Calcium 8.5 mg/dL (7.8-10.44); Carbon Dioxide 27 mmol/L (23-31); Chloride 103 mmol/L (98-107); Estimated GFR-MDRD 86; Glucose 92 mg/dL (80-115); Potassium 4.1 mmol/L (3.5-5.1); Sodium 136 mmol/L (136-145)
--- NOTE | 2017-09-16 06:18 | PDOC.FM ---
- Subjective Subjective: Patient had good night. He has no complaints at this time. Patient was counseled extensively on options of getting out of the hospital. At times he has expressed wanting to go to Rehab vs. Alf. His financial status has made the logistics difficult at this time. On top of that, the patient will need to receive Chemo for his Rectal Cancer in the near future. He was counseled that correction detention facilities don't accept patients receiving active cancer treatment. He was also counseled on patient's going to Rehab and SNF can't receive chemo treatments while he is there. However, he is only to spend approximately 20 days at the SNF and delaying his treatment for that short amount of time would likely not have a large impact on his overall prognosis. He is agreeable to delaying treatment at this time. His daughter, Quyen, who is MPOA was also contacted and she is in agreement with this plan. She states that she is going to be working on a clamp forklift operator living situation that will allow chemo treatments if he chooses to undergo those. Patient and his daughter expressed understanding with no further questions at this time. - Objective Vital Signs & Weight: Vital Signs (12 hours) Temp Pulse Resp BP BP Pulse Ox 09/16/17 05:54 98.3 F 79 18 122/71 99 09/16/17 04:00 122/71 09/16/17 00:21 97.6 F 87 18 131/71 98 09/16/17 00:00 131/71 09/15/17 20:00 98.1 F 79 16 101/60 101/60 99 Weight Weight 87.543 kg I&O: 09/14/17 09/15/17 09/16/17 06:59 06:59 06:59 Intake Total 2057 1987 1639 Output Total 1 Balance 2056 1987 1639 Result Diagrams: 09/16/17 05:33 09/16/17 05:33 <Franklyn Buck - Last Filed: 09/16/17 07:29> - Objective Vital Signs & Weight: Vital Signs (12 hours) Temp Pulse Resp BP BP Pulse Ox 09/16/17 08:00 98.2 F 83 20 98 09/16/17 07:34 98.2 F 83 20 100/58 L 98 09/16/17 05:54 98.3 F 79 18 122/71 99 09/16/17 04:00 122/71 09/16/17 00:21 97.6 F 87 18 131/71 98 09/16/17 00:00 131/71 Weight Weight 87.543 kg I&O: 09/15/17 09/16/17 09/17/17 06:59 06:59 06:59 Intake Total 1987 1640 Balance 1987 1640 Result Diagrams: 09/16/17 05:33 09/16/17 05:33 <Garth Timmons - Last Filed: 09/16/17 10:22> Phys Exam - Physical Examination HEENT: moist MMs Neck: no nodes Respiratory: no wheezing, clear to auscultation bilateral Cardiovascular: RRR, no significant murmur Gastrointestinal: soft, non-tender, no distention, positive bowel sounds Musculoskeletal: no edema, pulses present Neurological: non-focal, normal sensation, moves all 4 limbs Lymphatic: no nodes Psychiatric: normal affect, A&O x 3 Skin: no rash <Franklyn Buck - Last Filed: 09/16/17 07:29> Dx/Plan (1) Adenocarcinoma of colon Code(s): C18.9 - MALIGNANT NEOPLASM OF COLON, UNSPECIFIED Status: Acute (2) Alcohol abuse Code(s): F10.10 - ALCOHOL ABUSE, UNCOMPLICATED Status: Acute (3) Former tobacco use Code(s): Z87.891 - PERSONAL HISTORY OF NICOTINE DEPENDENCE Status: Acute (4) Hypokalemia Code(s): E87.6 - HYPOKALEMIA Status: Resolved (5) Hyponatremia Code(s): E87.1 - HYPO-OSMOLALITY AND HYPONATREMIA Status: Resolved (6) Multiple falls Code(s): R29.6 - REPEATED FALLS Status: Acute (7) Normocytic anemia Code(s): D64.9 - ANEMIA, UNSPECIFIED Status: Acute (8) Positive fecal occult blood test Status: Acute (9) Pulmonary nodules Status: Acute (10) Rectal mass Code(s): K62.9 - DISEASE OF ANUS AND RECTUM, UNSPECIFIED Status: Acute - Plan Plan: Adenocarcinoma of Rectosigmoid Colon - Moderately to poorly differentiated Adenocarcinoma on pathology. - Dr. Braswell with GI has been consulted, appreciate recs - Onc has been consulted, appreciate recs - plan for neoadjuvant chemotherapy. They have arranged an appt outpt for him to f/u to get this started. - Regular diet - Protonix Multiple Falls - PT/OT consult - Rehab screen - fall precautions - Working on Rehab placement Hyponatremia Likely 2/2 beer drinkers potomania with low urine Na of < 20. Improving - fluid restrict to 1800cc - Trend Na, 135 this AM Multiple Pulmonary Nodules - pulmonary nodules are likely metastatic from the adenocarcinoma of the colon. - Onc consulted, appreciate recs Hypokalemia, resolved - Monitor - Will replete as needed Hypochloremia - trend - resolved Elevated AST - likely 2/2 EtOH use - trend Hyperbilirubinemia T. bili 1.7, d. bili 1.0. - Will trend - Consider RUQ US Normocytic Anemia FOBT positive. Iron studies consistent with Anemia of Chronic Disease. B12 WNL. RBC folate WNL. - trend Rib Fracture - control pain with tylenol and ibuprofen Alcohol Abuse No signs of withdrawal - ASE protocol - Thiamine - Folic Acid - Multivitamin - Caustic Pump Operator about cessation Former Tobacco Abuse Patient has decreased air entry on exam and reports feeling tight sometimes when breathing. Has h/o smoking 1ppd for 15 years about 20 years ago. - Duonebs prn Hiccups Have improved with treatment - Chlorpromazine Disposition: Will work with Case Management for placement for rehab. Otherwise stable for discharge. <Franklyn Buck - Last Filed: 09/16/17 07:29> Attending Addendum - Attending Addendum Date/Time: 09/16/17 1022 I personally evaluated the patient and discussed the management with Dr. Buck. I agree with the History, Examination, Assessment and Plan documented above with any addition or exceptions noted below. Patient feels well today. Labs stable. Awaiting decision on placement as he has decided to defer Onc treatment until he is released from rehab. Once accepted for placement, should be ready for discharge. <Garth Timmons - Last Filed: 09/16/17 10:22>
[2017-09-16 07:35] VITALS: BP 100/58; TEMP 98.2
[2017-09-16] MEDS: Enoxaparin Sodium 40 MG/0.4 ML SYRINGE SC SCH (08:47)
[2017-09-16] MEDS: Pantoprazole 40 MG VIAL IVP SCH (08:47)
[2017-09-16] MEDS: Multivitamin W/ Minerals 1 TAB PO SCH (08:47)
[2017-09-16] MEDS: Folic Acid 1 MG TAB PO SCH (08:47)
--- NOTE | 2017-09-17 17:41 | DIS-2 ---
DATE OF ADMISSION: 09/07/2017 DATE OF DISCHARGE: 09/16/2017 PRIMARY CARE PHYSICIAN: Franklyn Buck M.D. ADMITTING ATTENDING: Dr. Perrin. DISCHARGE ATTENDING: Dr. Timmons. CONSULTATIONS: Dr. Braswell, Gastroenterology, nurse practitioner, Tho with Oncology. Also case management consult for occupational therapy, physical therapy and a rehabilitation screen. PROCEDURES: The patient underwent a brain CT on 09/07/2017 that showed no evidence of intracranial hemorrhage or mass effect. The patient underwent a cervical spine CT that showed no evidence for fracture or traumatic subluxation. The patient underwent a chest CT on 09/07/2017 that showed age indeterminate, nondisplaced right anterior eighth rib fracture, multiple bilateral pulmonary nodules suspicious for metastatic disease. Patient underwent an abdominal pelvis CT on 09/08/2017 that showed a probable primary neoplasm involving the rectum with adjacent mental status in the perirectal soft tissues with perirectal lymph nodes. Additional metastatic lymph nodes are noted in the retroperitoneal region as well as in the left upper quadrant mesentery possible left adrenal gland metastasis. Next, the patient underwent a colonoscopy with biopsy on 09/09/2017 that showed a large rectal mass from 2 cm above the anal verge at 13 cm. This was deeply ulcerated circumferentially necrotic left-sided diverticulosis. PRIMARY DIAGNOSES: 1. Adenocarcinoma of the rectosigmoid colon. 2. Alcohol abuse. 3. Former tobacco use. 4. Hypokalemia, resolved. 5. Hyponatremia, resolved. 6. Multiple falls. 7. Normocytic anemia. 8. Pulmonary nodules. 9. Elevated AST. DISCHARGE MEDICATIONS: 1. Folic acid 1 mg p.o. daily. 2. Multivitamin 1 tab p.o. daily. 3. Thiamine 100 mg p.o. daily. DISCONTINUED MEDICATIONS: None. HISTORY OF PRESENT ILLNESS AND HOSPITAL COURSE: The patient is a 67-year-old male with past medical history of alcohol abuse and no other medical problems who presents via EMS for evaluation of multiple falls at home recently. Today, tripped over a pair of pants on the floor. No loss of consciousness. He reports generalized weakness. He does live alone at home. Upon arrival, he was found to have several old healing rib fractures and one more recent fracture with lab abnormalities, pulmonary nodules on CT. The patient has not seen a doctor in years. He drinks roughly 12 beers per day. His last known drink was 2 days ago. The patient does report rib pain, but otherwise has no other complaints. During this hospitalization, the patient had snorted lab values of a white blood cell count of 15.6 that trended down to 7.6. On day of discharge, hemoglobin of 11.8 that trended down to 9.0. Sodium on admission of 126 that corrected to 136 through admission, potassium that ranged from 2.8 to a size 4.1 during hospitalization and a negative urine drug screen. Patient was evaluated by Gastroenterology and Dr. Braswell and was found to have a primary adenocarcinoma of his rectum with distant metastasis during this hospitalization. He was then seen by Oncology and Caro Nettles who recommended an outpatient chemotherapy regimen to be started with Dr. Batista as an outpatient. However, there were some insurance obstacles to where this patient would need to be placed into a long-term care facility as he did not have a safe living situation going home and so he would need to be having delayed treatment until he was strong enough to undergo treatment. It was opted that the patient find an inpatient longterm facility for approximately 1 month to gain his functionality and his strength back to where he could be independent and it was opted that he will be transferred to the [facility] in [place], [place] upon discharge from the hospital. The patient did have a surgical site specimen of these rectum that showed invasive adenocarcinoma, moderately to poorly differentiated. With this further CT findings of metastatic disease, he likely has stage IV disease that will need long-term therapy with his prognosis being poor. Patient otherwise was making gains with physical therapist during this hospitalization and it is believed he will make even further gains when he will be discharged from the inpatient longterm facility in approximately 1 month. Otherwise, the patient had no complications during this hospitalization and was discharged on appropriate condition. DISPOSITION: Stable. DISCHARGE INSTRUCTIONS: 1. Location: Will be discharged to the [facility] in [place]. 2. Diet will be a regular diet with no restrictions. 3. Activity will be limited by activities because of his fall precautions until he gains strength. 4. Follow up will be with Dr. Braswell in the near future as well as Caro Nettles in the coming weeks to months as well. I wished this tra best of luck and hope that he has no further complications from this disease. [facility]
--- NOTE | 2017-10-01 10:10 | OP ---
DATE OF PROCEDURE: 09/09/2017 GASTROENTEROLOGY PROCEDURE NOTE PREOPERATIVE DIAGNOSES: Anemia, abnormal CT scan and alcohol abuse. Please note that upper endoscopy was performed at the time of colonoscopy on 09/09/2017. I dictated the colonoscopy procedure report, however, the EGD report is being dictated on a delayed basis now. OPERATIVE NOTE: Informed consent was obtained from the patient. He was sedated with total intraveno us anesthesia. The bite block was placed and the endoscope was advanced easily to the second portion of the duodenum and retroflexion was performed in the stomach. The esophagus had a short segment of salmon-colored mucosa suggestive of Newman's esophagus. Biopsies were obtained. Stomach had erosi ve gastritis. Biopsies were obtained to rule out H. pylori. Pylorus and first and second portions o f the duodenum were normal. IMPRESSION: 1. 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 2. Nonerosive gastritis. RECOMMENDATIONS: Await histopathology. Please note the colonoscopy was performed under same anesthesia.
== END 2017-09-16 15:30 | DRG 375 ==
LOC: ERS 12:22 → 2SE 15:50 → OBSVTOIN 15:50 → T4-B 18:18
PROVIDERS: ADMIT Family Medicine; ATTEND Family Medicine
PROC: 0DBP8ZX Excision of Rectum, Via Natural or Artificial Opening Endoscopic, Diagnostic (ICD-10-PCS; principal; 2017-09-09)
PROC: 0DB58ZX Excision of Esophagus, Via Natural or Artificial Opening Endoscopic, Diagnostic (ICD-10-PCS; 2017-09-09)
PROC: 0DB68ZX Excision of Stomach, Via Natural or Artificial Opening Endoscopic, Diagnostic (ICD-10-PCS; 2017-09-09)
DX: C19 Malignant neoplasm of rectosigmoid junction (principal); S22.31XA Fracture of one rib, right side, initial encounter for closed fracture; E87.1 Hypo-osmolality and hyponatremia; C78.02 Secondary malignant neoplasm of left lung; C78.01 Secondary malignant neoplasm of right lung; C77.8 Secondary and unspecified malignant neoplasm of lymph nodes of multiple regions; E87.8 Other disorders of electrolyte and fluid balance, not elsewhere classified; D64.9 Anemia, unspecified; F10.10 Alcohol abuse, uncomplicated; E87.6 Hypokalemia; K57.30 Diverticulosis of large intestine without perforation or abscess without bleeding; K29.70 Gastritis, unspecified, without bleeding; R29.6 Repeated falls; Z87.891 Personal history of nicotine dependence; W01.0XXA Fall on same level from slipping, tripping and stumbling without subsequent striking against object, initial encounter
CPT/HCPCS: 36415; 36416; 70450; 71250; 72125; 74177; 80048; 80053; 80306; 80307; 81003; 81210; 81275; 81276; 81311; 82248; 82274; 82378; 82607; 82728; 82747; 83540; 83550; 83735; 83930; 83935; 84300; 85025; 85610; 85730; 86301; 86304; 88305; 88312; 88313; 88341; 88342; 88381; 90471; 90670; 93005; 96365; 96366; A4216; C9113; G0009; G8978-GP-CL; G8979-GP-CI; G8987-GO-CK; G8988-GO-CI; J1650; J2001; J2704; J3010; J3411; J3480; J7042; J7050

== ENCOUNTER 2017-10-24 16:33 | Inpatient (IN) | payer MEDICARE ==
[2017-10-24 17:24] LABS: #Lymphocytes 2.7 thou/uL (1.20-3.40); #Monocytes 1.1 thou/uL (0.11-0.59); #Neutrophils 10.9 thou/uL (1.40-6.50); %Eosinophils 0.3 % (0.0-10.0); %Lymphocytes 18.2 % (21.0-51.0); %Monocytes 7.2 % (0.0-10.0); %Neutrophils 74.2 % (42.0-75.0); Mean Corpuscular HGB CONC 34.3 g/dL (32.0-36.0); Mean Corpuscular Hemoglobin 25.5 pg (27.0-31.0); Mean Corpuscular Volume 74.4 fl (80.0-94.0); Mean Platelet Volume 5.3 fL (7.4-10.4); Platelet Count 732 thou/uL (130-400); Red Blood Cell (RBC) Count 3.13 mill/uL (4.70-6.10); White Blood Cell (WBC) Count 14.7 thou/uL (4.8-10.8)
[2017-10-24] MEDS ORDERED: Metoclopramide HCl 10 MG/2 ML VIAL ONE (17:35)
[2017-10-24] MEDS ORDERED: diphenhydrAMINE 50 MG/ML VIAL ONE (17:35)
[2017-10-24 17:39] LABS: ALT (SGPT) 14 U/L (8-55); AST (SGOT) 21 U/L (5-34); Albumin 3.3 g/dL (3.4-4.8); Alkaline Phosphatase 60 U/L (40-150); Anion Gap 14 mmol/L (10-20); BUN (Urea Nitrogen) 7 mg/dL (8.4-25.7); Bilirubin, Total 0.5 mg/dL (0.2-1.2); CK (CPK) 75 U/L (30-200); Calc. Creatinine Clearance 0 mL/min (70-130); Calcium 8.2 mg/dL (7.8-10.44); Carbon Dioxide 18 mmol/L (23-31); Chloride 87 mmol/L (98-107); Estimated GFR-MDRD Greater than 90; Globulin 3.2 g/dL (2.4-3.5); Glucose 83 mg/dL (80-115); Potassium 3.3 mmol/L (3.5-5.1); Protein, Total 6.5 g/dL (5.8-8.1)
[2017-10-24 17:43] LABS: CKMB 4.2 ng/mL (0-6.6); Troponin I Less than 0.010 ng/mL (< 0.028)
[2017-10-24 17:47] LABS: Magnesium 1.2 mg/dL (1.6-2.6)
[2017-10-24 17:48] LABS: Sodium 116 mmol/L (136-145)
--- NOTE | 2017-10-24 18:16 | PDOC.FPRHP ---
- History of Present Illness Chief Complaint: muscles aches History of Present Illness: This is a 67 yo M recently diagnosed with colon cancer with lung metastasis, he also suffers from alcoholism. The patient was discharged to rehab 6 weeks ago after workup for recurrent falls resuting in discovery of the colon cancer. He was discharged [facility] and just went home 2 weeks ago. He was not started on chemotherapy yet as it was thought he would be stronger for the chemo after the rehab stay. He comes in tonight with chief complaint of "muscles aches all over." He states that his aches feel like the flu and have been going on for a day or so. He also has hiccups going on for a day or so. Nothing makes the muscle aches better or worse. He has still been drinking, although he states he is down to 2- 3 drinks a day from 12 before his last admission. His alcohol level was 70. He states he has never had aches like this before. He denies fevers, chills, sweats , nausea, vomiting, or diarrhea. He is AxO x3 but did urinate and defecate on himself. ED Course: reglan 500cc NS potassium - Allergies/Adverse Reactions Allergies Allergy/AdvReac Type Severity Reaction Status Date / Time No Known Allergies Allergy Verified 10/24/17 21:00 - Home Medications Medication Instructions Recorded Confirmed Type No Known [No Known] 10/24/17 10/24/17 History - History PMHx: Colon Cancer, Alcohol Abuse, multiple falls, de-conditioning PSHx: none FHx: none Social: Patient drinks 2 beers per day down 12 beers per day. Reports former tobacco abuse about 20 years ago. Denies drug use. - Review of Systems General: denies: fever/chills, night sweats, fatigue ENT: denies: nasal congestion, rhinorrhea Respiratory: denies: cough, shortness of breath Cardiovascular: denies: chest pain, palpitation Gastrointestinal: denies: nausea, vomiting, diarrhea, abdominal pain Genitourinary: denies: dysuria Skin: denies: rashes, itching Musculoskeletal: reports: pain (muscles aches) Neurological: denies: numbness, weakness Psychological: reports: depression (feels hopeless with cancer diagnosis) - Vital signs BP: 149/76 HR: 85 RR: 20 Tmax: 98.1 Pox: 97% on RA Wt: 91kg - Physical Exam Constitutional: NAD, awake, alert and oriented HEENT: normocephalic and atraumatic, PERRLA, EOMI -HEENT: mildly dry oral mucosa Neck: supple Heart: RRR, normal S1/S2 Lungs: CTAB, no respiratory distress, good air movement, no wheezing Abdomen: soft, non-tender, bowel sounds present -Abdomen: mildly distension, no obvious fluid wave Patient has rash around umbilicus, appears like rug burn skin breakdown noted around groin and on scrotum, appears that he has not been able to care for himself Musculoskeletal: normal structure Neurological: no focal deficit, CN II-XII intact Skin: no rash/lesions, capillary refill <2 seconds FMR H&P: Results - Labs Result Diagrams: 10/26/17 05:07 10/26/17 05:07 Lab results: WBC 14.7 thou/uL (4.8-10.8) H 10/24/17 17:11 Hgb 8.0 g/dL (14.0-18.0) L 10/24/17 17:11 Hct 23.2 % (42.0-52.0) L 10/24/17 17:11 MCV 74.4 fl (80.0-94.0) L 10/24/17 17:11 Plt Count 732 thou/uL (130-400) H 10/24/17 17:11 Neutrophils % 74.2 % (42.0-75.0) 10/24/17 17:11 Sodium 116 mmol/L (136-145) L* 10/24/17 17:11 Potassium 3.3 mmol/L (3.5-5.1) L 10/24/17 17:11 Chloride 87 mmol/L (98-107) L 10/24/17 17:11 Carbon Dioxide 18 mmol/L (23-31) L 10/24/17 17:11 BUN 7 mg/dL (8.4-25.7) L 10/24/17 17:11 Creatinine 0.69 mg/dL (0.6-1.3) 10/24/17 17:11 Glucose 83 mg/dL (80-115) 10/24/17 17:11 Calcium 8.2 mg/dL (7.8-10.44) 10/24/17 17:11 Total Bilirubin 0.5 mg/dL (0.2-1.2) 10/24/17 17:11 AST 21 U/L (5-34) 10/24/17 17:11 ALT 14 U/L (8-55) 10/24/17 17:11 Alkaline Phosphatase 60 U/L (40-150) 10/24/17 17:11 Creatine Kinase 75 U/L (30-200) 10/24/17 17:11 CK-MB (CK-2) 4.2 ng/mL (0-6.6) 10/24/17 17:11 Serum Total Protein 6.5 g/dL (5.8-8.1) 10/24/17 17:11 Albumin 3.3 g/dL (3.4-4.8) L 10/24/17 17:11 FMR H&P: A/P - Problem List (1) Alcoholism Current Visit: Yes Status: Acute Code(s): F10.20 - ALCOHOL DEPENDENCE, UNCOMPLICATED (2) Adenocarcinoma of colon Current Visit: No Status: Chronic Code(s): C18.9 - MALIGNANT NEOPLASM OF COLON, UNSPECIFIED (3) Hyperbilirubinemia Current Visit: No Status: Acute Code(s): E80.6 - OTHER DISORDERS OF BILIRUBIN METABOLISM (4) Multiple falls Current Visit: No Status: Acute Code(s): R29.6 - REPEATED FALLS (5) Pulmonary nodules Current Visit: No Status: Acute - Plan # Hyponatremia - Na 116 on presentation - 500cc NS in ED - Na 119 at 3 hr recheck, down to 100ml/hr NS - suspect this is 2/2 alcoholism/malnutrition, appears euvolemic or slightly volume down - will monitor Na closely as will likely rise quickly overnight - Has mets to lungs, consider SIADH if not improving - Check serum osm, urine osm, U na, U cr, calculate FeNa # Colon cancer - diagnosed on last admission - post-poned chemo 2/2 de-conditioning - courtesy call to Dr. Solorzano in AM # Hypomagnesemia - replete # Alcoholism - ASE protocol - mag, thiamine, folic acid # De-conditioning - only out of rehab 2 weeks - PT/OT eval in AM - Wound care for skin breakdown on abdomen and genitals # Chronic Anemia - likely 2/2 chronic inflammation - RBC folate and B12 normal last admission - monitor # Code Status - Patient states he want to be DNR/DNI in ED - He is A&Ox3, but alcohol level is 70 and he urinated/defecated on self - will make him full code for now, f/u on this in AM diet: regular Code: full Fluids: NS 100ml/hr Dispo: >48 hours FMR H&P: Upper Level - Pertinent history 67 yo CM with pmhx alcohol abuse and recently diagnosed metastatic colon cancer presents with diffuse body aches x 1 day. Patient was recently discharged from our service about a month ago to [facility]. Pt went home 2 wks ago and says that he has been drinking 2-3 beers per day since then. Pt lives alone. He was not started on chemotherapy yet as it was thought he would be stronger for the chemo after his rehab stay. Denies associated symptoms including headache, fevers, chills, seizure activity, nausea, vomiting, or diarrhea. He is A&O x3 but did urinate and defecate on himself in the ER room. - Pertinent findings Gen: poorly groomed male in no acute distress, urine on floor and feces in bed, AAOx3 CV: RRR, normal S1/S2, no m/g/r Lungs: CTAB, normal WOB Abd: appears somewhat distended but soft, NT, no obvious fluid wave Ext: no edema, pulses 2+ Neuro: no obvious focal defects, balance intact Skin: large pink patch on abdomen and groin with overlying excoriations - Plan Date/Time: 10/24/171815 I, Ollie Smith MD, have evaluated this patient and agree with findings/plan as outlined by agriculture intern resident. Pertinent changes/additions are listed here. 67 yo M w/: 1) Acute on chronic hyponatremia: Likely 2/2 beer drinkers potomania + hypovolemia: admit to telemetry. S/p 500 mL bolus NS in ER. Aim for rate of rise no greater than 8mEq/L/day to avoid overcorrection and ODS. BMP check now and then every 4 hours. Urine/serum osms and urine Na pending. Nutrition consult. 2) Metastatic colon cancer: diagnosed on last admission, postponed chemo 2/2 de- conditioning; will notify onc that patient admitted. Consider palliative care consult during this admission. 3) Hypomagnesemia: replete prn 4) Alcoholism: banana bag hanging, replete electrolytes/thiamine/folic acid; ASE protocol. Checking ammonia level as well although patient does not have previous diagnosis of cirrhosis 5) Deconditioning: PT/OT eval and treat 6) Skin breakdown: wound care consult 7) Chronic Anemia: previously macrocytic, now microcytic. Hgb slightly lower than baseline but not severe enough yet to need transfusion. Previous iron studies c/w chronic disease. Consider FOBT if H&H continues to decline. 8) Thrombocytopenia: possible stress response, no obvious sign of infection at this point. Ppx lovenox ordered. Attending Addendum - Attending Addendum Date/Time: 10/26/17 1019 I personally evaluated the patient and discussed the management with Dr. Ray on 10/25. We talked through patient's care on the evening of 10/24as well. I agree with the History, Examination, Assessment and Plan documented above with any addition or exceptions noted below.
[2017-10-24 18:20] LABS: Anisocytosis SLIGHT = 6-15 cells (100X) (0-5/hpf); MDiff Complete? YES; Microcytosis SLIGHT = 6-15 cells (100X) (0-5/hpf); PLT Morphology Comment Appears Increased; Polychromasia SLIGHT = 2-3 cells (100X) (0-2/hpf)
--- NOTE | 2017-10-24 18:25 | RAD ---
PORTABLE UPRIGHT FRONTAL CHEST RADIOGRAPH 10/24/17 COMPARISON: 06/10/02 HISTORY: Pain all over, cough, chest pain, short of breath. FINDINGS: No pneumothorax, pleural fluid, focal consolidation or alveolar edema. Heart and mediastinal contours are unremarkable. A pulmonary nodule is noted in the lateral aspect of the mid right lung zone measuring approximately 1.[address] performed demonstrated bilateral pulmonary nodules concerning for me tastatic disease. IMPRESSION: Pulmonary nodule consistent with findings seen on recent CT of the chest which was concerning for met astatic disease. No focal consolidation or alveolar edema. POS: [facility]
[2017-10-24] MEDS ORDERED: chlordiazePOXIDE HCl 25 MG CAP ONE (18:33)
[2017-10-24] MEDS ORDERED: Potassium Bicarbonate/Cit Ac 25 MEQ TAB ONE (18:35)
[2017-10-24 19:04] LABS: Bilirubin Negative (Negative); Blood, Urine Negative (Negative); Clarity CLEAR (Clear); Glucose, Urine (Dipstick) Negative (Negative); Leukocyte Trace (Negative); Nitrite Negative (Negative); Protein, Urine (Dipstick) Negative (Neg-Trace); Specific Gravity, Urine 1.008 (1.002-1.036); Urobilinogen 0.2 mg/dL (0.2-1.0); pH, Urine 5.5 (5.0-9.0)
[2017-10-24 19:06] LABS: Bacteria/HPF None Seen HPF (None Seen); Hyaline Casts/LPF 0-3 HYALINE CAST LPF (0-3 Hyaline); RBC/HPF 0-3 HPF (0-3); Squamous Epithelial None Seen HPF (0-3); WBC/HPF None Seen HPF (0-3)
[2017-10-24 20:18] LABS: Anion Gap 16 mmol/L (10-20); BUN (Urea Nitrogen) 6 mg/dL (8.4-25.7); Calc. Creatinine Clearance 0 mL/min (70-130); Calcium 8.2 mg/dL (7.8-10.44); Carbon Dioxide 18 mmol/L (23-31); Chloride 89 mmol/L (98-107); Estimated GFR-MDRD Greater than 90; Glucose 73 mg/dL (80-115); Potassium 3.9 mmol/L (3.5-5.1)
[2017-10-24 20:26] LABS: Sodium 119 mmol/L (136-145)
[2017-10-24] MEDS ORDERED: Acetaminophen 325 MG TAB PO PRN (21:27)
[2017-10-24] MEDS ORDERED: Ondansetron HCl/PF 4 MG/2 ML Vial IVP PRN (21:27)
[2017-10-24] MEDS ORDERED: Ondansetron ODT 4 MG TAB SL PRN (21:27)
[2017-10-24] MEDS ORDERED: Sodium Chloride 0.9% 1,000 ML IV SCH ×2 (21:50→22:15)
[2017-10-24] MEDS ORDERED: Magnesium Chloride 64 MG TAB PO SCH (22:15)
[2017-10-24 22:34] LABS: Osmolality, Urine 60 mOsm/kg (300-900)
[2017-10-24 22:48] LABS: Creatinine, Urine Less than 20.00 mg/dL (63-166); Sodium, Urine Less than 20 mmol/L (Not Available)
[2017-10-24 23:23] LABS: Anion Gap 14 mmol/L (10-20); BUN (Urea Nitrogen) 7 mg/dL (8.4-25.7); Calc. Creatinine Clearance 116 mL/min (70-130); Calcium 8.2 mg/dL (7.8-10.44); Carbon Dioxide 22 mmol/L (23-31); Chloride 91 mmol/L (98-107); Estimated GFR-MDRD Greater than 90; Glucose 101 mg/dL (80-115); Potassium 3.6 mmol/L (3.5-5.1); Sodium 123 mmol/L (136-145)
--- NOTE | 2017-10-25 00:03 | PDOC.EVN ---
Event Note - Event Note Event Note: Na from 116->123 over 6 hours Will switch to D5-1/2NS at 100 ml/hr re-check at 0335
[2017-10-25] MEDS ORDERED: Dextrose 5 %-0.45 % NaCl 1,000 ML IV SCH (00:15)
[2017-10-25 05:23] LABS: #Basophils 0.2 thou/uL (0.0-0.2); #Lymphocytes 1.8 thou/uL (1.20-3.40); #Monocytes 1.1 thou/uL (0.11-0.59); #Neutrophils 8.1 thou/uL (1.40-6.50); %Basophils 1.5 % (0.0-1.0); %Eosinophils 0.4 % (0.0-10.0); %Lymphocytes 16.1 % (21.0-51.0); %Neutrophils 72.1 % (42.0-75.0); Hemoglobin 8.3 g/dL (14.0-18.0); Mean Corpuscular HGB CONC 33.2 g/dL (32.0-36.0); Mean Corpuscular Hemoglobin 25.2 pg (27.0-31.0); Mean Corpuscular Volume 75.8 fl (80.0-94.0); Mean Platelet Volume 5.4 fL (7.4-10.4); Platelet Count 689 thou/uL (130-400); RBC Distribution Width 17.1 % (11.5-14.5); Red Blood Cell (RBC) Count 3.29 mill/uL (4.70-6.10); White Blood Cell (WBC) Count 11.3 thou/uL (4.8-10.8)
[2017-10-25 05:35] LABS: Anion Gap 12 mmol/L (10-20); BUN (Urea Nitrogen) 7 mg/dL (8.4-25.7); Calc. Creatinine Clearance 121 mL/min (70-130); Calcium 8.5 mg/dL (7.8-10.44); Carbon Dioxide 24 mmol/L (23-31); Chloride 94 mmol/L (98-107); Estimated GFR-MDRD Greater than 90; Glucose 104 mg/dL (80-115); Magnesium 1.6 mg/dL (1.6-2.6); Potassium 3.7 mmol/L (3.5-5.1); Sodium 126 mmol/L (136-145)
--- NOTE | 2017-10-25 07:19 | PDOC.FM ---
- Subjective Subjective: 67 yo M w/hx of stage IV rectal cancer with mets to the lung. Here for symptomatic acute hyponatremia. Pt states that he feels much better today as compared to yesterday. He denies n/v, headaches, weakness, dizziness. There were no acute events over night. Pt denies any new symptoms. - Objective MAR Reviewed: Yes Vital Signs & Weight: Vital Signs (12 hours) Temp Pulse Resp BP Pulse Ox 10/25/17 04:00 98 F 79 20 118/58 L 98 10/24/17 23:39 98.3 F 89 20 127/58 L 98 10/24/17 21:50 98 10/24/17 21:24 98.2 F 79 16 I&O: 10/24/17 10/25/17 10/26/17 06:59 06:59 06:59 Output Total 2625 Balance -2625 Result Diagrams: 10/25/17 04:54 10/25/17 04:54 <Aleks Knox - Last Filed: 10/25/17 07:04> - Objective Vital Signs & Weight: Vital Signs (12 hours) Temp Pulse Resp BP BP BP BP 10/26/17 08:54 99.1 F 108 H 18 134/60 134/60 10/26/17 04:08 100.1 F H 91 20 138/66 138/66 10/26/17 00:05 101.3 F H 96 18 121/58 L Pulse Ox 10/26/17 08:54 100 10/26/17 04:08 96 10/26/17 00:05 97 Weight Admit Weight 88.496 kg Weight 88.496 kg I&O: 10/25/17 10/26/17 10/27/17 06:59 06:59 06:59 Intake Total 1720 Output Total 2625 775 Balance -2625 945 Result Diagrams: 10/26/17 05:07 10/26/17 05:07 <Trenton Perrin - Last Filed: 10/26/17 10:25> Phys Exam - Physical Examination Constitutional: NAD HEENT: moist MMs, TM's clear Neck: no JVD Respiratory: clear to auscultation bilateral Cardiovascular: RRR, no significant murmur, no rub Gastrointestinal: soft, non-tender, no distention, positive bowel sounds Musculoskeletal: no edema, pulses present Neurological: non-focal, moves all 4 limbs Psychiatric: normal affect, A&O x 3 Skin: normal turgor, cap refill <2 seconds Deviation from normal: Multiple healing abrasions on abdomen and legs. Do not appear infected <Aleks Knox - Last Filed: 10/25/17 07:04> Dx/Plan (3) Hyponatremia Code(s): E87.1 - HYPO-OSMOLALITY AND HYPONATREMIA Status: Acute (4) Microcytic anemia Code(s): D50.9 - IRON DEFICIENCY ANEMIA, UNSPECIFIED Status: Chronic (5) Physical deconditioning Code(s): R53.81 - OTHER MALAISE Status: Chronic (6) Thrombocytosis Status: Acute (7) Adenocarcinoma of colon Code(s): C18.9 - MALIGNANT NEOPLASM OF COLON, UNSPECIFIED Status: Chronic (8) Alcohol abuse Code(s): F10.10 - ALCOHOL ABUSE, UNCOMPLICATED Status: Chronic (9) Skin abrasion Code(s): T14.8XXA - OTHER INJURY OF UNSPECIFIED BODY REGION, INITIAL ENCOUNTER Status: Acute (10) Leukocytosis Code(s): D72.829 - ELEVATED WHITE BLOOD CELL COUNT, UNSPECIFIED Status: Acute QualifierTitle: Leukocytosis type: unspecified Qualified Code(s): D72.829 - Elevated white blood cell count, unspecified - Plan Plan: Hyponatremia - since at least August of this year, pt is chronically in the mid 120- low 130 range. - Over the first 12 hours pt was corrected from 116 to 126, since that time he was changed to 1/2 NS to slow correction rate - Recheck BMP at 1200, 1800, and in am. Adjust fluids as necessary Stage IV rectal ca - will call onc this am to inform of hospitalization Alcoholism - ASE protocol. Currently pt appears to be asymptomatic. Last drink was yesterday Skin abrasion - Large affected area over abdomen apprx 25cm in diameter. does not currently appear to be infected. Likely cause was a fall while intoxicated - wound care has been consulted Chronic microcytic anemia - likely secondary to poor diet and blood loss from rectal cancer. - Vitals are currently normal, though pt has been consistently down trending over the past few months. - Recheck in am, will add PO iron Deconditioning - Consult PT, consider rehab at time of dc Thrombocytosis/leukocytosis - likely reactive and related to volume contraction. Recheck CBC in am - vital signs and exam are inconsistent with infection dispo: pt is currently stable. will continue to monitor progress. likely length of stay 48 hours with dc to rehab <Aleks Knox - Last Filed: 10/25/17 07:04> (1) Alcoholism Code(s): F10.20 - ALCOHOL DEPENDENCE, UNCOMPLICATED Status: Acute (2) Adenocarcinoma of colon Code(s): C18.9 - MALIGNANT NEOPLASM OF COLON, UNSPECIFIED Status: Chronic (3) Hyperbilirubinemia Code(s): E80.6 - OTHER DISORDERS OF BILIRUBIN METABOLISM Status: Acute (4) Multiple falls Code(s): R29.6 - REPEATED FALLS Status: Acute (5) Pulmonary nodules Status: Acute <Trenton Perrin - Last Filed: 10/26/17 10:25> Attending Addendum - Attending Addendum Date/Time: 10/26/17 1024 I personally evaluated the patient and discussed the management with Dr. Knox on 10/25. I agree with the History, Examination, Assessment and Plan documented above with any addition or exceptions noted below. <Trenton Perrin - Last Filed: 10/26/17 10:25>
[2017-10-25] MEDS: Folic Acid 1 MG TAB PO SCH (08:06)
[2017-10-25] MEDS: Magnesium Chloride 64 MG TAB PO SCH ×2 (08:07→22:01)
[2017-10-25] MEDS: Enoxaparin Sodium 40 MG/0.4 ML SYRINGE SC SCH (08:07)
[2017-10-25] MEDS: Ferrous Sulfate 325 MG TAB PO SCH ×2 (08:15→16:49)
[2017-10-25 12:33] LABS: Anion Gap 13 mmol/L (10-20); BUN (Urea Nitrogen) 9 mg/dL (8.4-25.7); Calc. Creatinine Clearance 109 mL/min (70-130); Calcium 8.6 mg/dL (7.8-10.44); Carbon Dioxide 27 mmol/L (23-31); Chloride 96 mmol/L (98-107); Estimated GFR-MDRD Greater than 90; Glucose 104 mg/dL (80-115); Potassium 3.8 mmol/L (3.5-5.1); Sodium 132 mmol/L (136-145)
[2017-10-25 18:38] LABS: Anion Gap 12 mmol/L (10-20); BUN (Urea Nitrogen) 13 mg/dL (8.4-25.7); Calc. Creatinine Clearance 104 mL/min (70-130); Calcium 8.6 mg/dL (7.8-10.44); Carbon Dioxide 27 mmol/L (23-31); Chloride 97 mmol/L (98-107); Estimated GFR-MDRD Greater than 90; Glucose 121 mg/dL (80-115); Potassium 3.4 mmol/L (3.5-5.1); Sodium 133 mmol/L (136-145)
[2017-10-25] MEDS: Acetaminophen 325 MG TAB PO PRN (23:09)
[2017-10-26 05:37] LABS: #Lymphocytes 1.7 thou/uL (1.20-3.40); #Neutrophils 13.6 thou/uL (1.40-6.50); %Basophils 0.1 % (0.0-1.0); %Eosinophils 0.3 % (0.0-10.0); %Lymphocytes 10.4 % (21.0-51.0); %Monocytes 6.4 % (0.0-10.0); %Neutrophils 82.9 % (42.0-75.0); Hemoglobin 8.8 g/dL (14.0-18.0); Mean Corpuscular HGB CONC 32.1 g/dL (32.0-36.0); Mean Corpuscular Hemoglobin 25.2 pg (27.0-31.0); Mean Corpuscular Volume 78.6 fl (80.0-94.0); Mean Platelet Volume 5.8 fL (7.4-10.4); Platelet Count 602 thou/uL (130-400); RBC Distribution Width 17.2 % (11.5-14.5); Red Blood Cell (RBC) Count 3.47 mill/uL (4.70-6.10); White Blood Cell (WBC) Count 16.4 thou/uL (4.8-10.8)
[2017-10-26 05:49] LABS: Anion Gap 13 mmol/L (10-20); BUN (Urea Nitrogen) 10 mg/dL (8.4-25.7); Calc. Creatinine Clearance 113 mL/min (70-130); Calcium 8.5 mg/dL (7.8-10.44); Carbon Dioxide 24 mmol/L (23-31); Chloride 97 mmol/L (98-107); Estimated GFR-MDRD Greater than 90; Glucose 143 mg/dL (80-115); Magnesium 1.6 mg/dL (1.6-2.6); Potassium 3.5 mmol/L (3.5-5.1); Sodium 130 mmol/L (136-145)
--- NOTE | 2017-10-26 06:53 | PDOC.FM ---
- Subjective Subjective: Pt found resting comfortably in bed this morning. Denies cough, chest pain, malaise, dysuria, increased frequency, abdominal pain. Admits to new onset watery diarrhea yesterday. Over night pt had a fever of 101.3. - Objective MAR Reviewed: Yes Vital Signs & Weight: Vital Signs (12 hours) Temp Pulse Resp BP BP BP Pulse Ox 10/26/17 04:08 100.1 F H 91 20 138/66 138/66 96 10/26/17 00:05 101.3 F H 96 18 121/58 L 97 10/25/17 19:50 99.6 F 94 18 134/61 134/61 98 Weight Admit Weight 88.496 kg Weight 88.496 kg I&O: 10/24/17 10/25/17 10/26/17 06:59 06:59 06:59 Intake Total 1720 Output Total 2625 775 Balance -2625 945 Result Diagrams: 10/26/17 05:07 10/26/17 05:07 <Aleks Knox - Last Filed: 10/26/17 06:51> - Objective Vital Signs & Weight: Vital Signs (12 hours) Temp Pulse Resp BP BP BP BP 10/26/17 08:54 99.1 F 108 H 18 134/60 134/60 10/26/17 04:08 100.1 F H 91 20 138/66 138/66 10/26/17 00:05 101.3 F H 96 18 121/58 L Pulse Ox 10/26/17 08:54 100 10/26/17 04:08 96 10/26/17 00:05 97 Weight Admit Weight 88.496 kg Weight 88.496 kg I&O: 10/25/17 10/26/17 10/27/17 06:59 06:59 06:59 Intake Total 1720 Output Total 2625 775 Balance -2625 945 Result Diagrams: 10/26/17 05:07 10/26/17 05:07 <Trenton Perrin - Last Filed: 10/26/17 10:57> Phys Exam - Physical Examination Constitutional: NAD HEENT: moist MMs, sclera anicteric Neck: no JVD, full ROM Respiratory: clear to auscultation bilateral Cardiovascular: RRR, no significant murmur, no rub Gastrointestinal: soft, non-tender, no distention, positive bowel sounds Musculoskeletal: no edema Neurological: non-focal, moves all 4 limbs Psychiatric: normal affect, A&O x 3 Skin: normal turgor Deviation from normal: Abrasions to abdomen and legs, unchanged <Aleks Knox - Last Filed: 10/26/17 06:51> Dx/Plan (1) Diarrhea Code(s): R19.7 - DIARRHEA, UNSPECIFIED Status: Acute (2) Fever Code(s): R50.9 - FEVER, UNSPECIFIED Status: Acute (3) Hyponatremia Code(s): E87.1 - HYPO-OSMOLALITY AND HYPONATREMIA Status: Acute (4) Microcytic anemia Code(s): D50.9 - IRON DEFICIENCY ANEMIA, UNSPECIFIED Status: Chronic (5) Physical deconditioning Code(s): R53.81 - OTHER MALAISE Status: Chronic (6) Thrombocytosis Status: Acute (7) Adenocarcinoma of colon Code(s): C18.9 - MALIGNANT NEOPLASM OF COLON, UNSPECIFIED Status: Chronic (8) Alcohol abuse Code(s): F10.10 - ALCOHOL ABUSE, UNCOMPLICATED Status: Chronic (9) Skin abrasion Code(s): T14.8XXA - OTHER INJURY OF UNSPECIFIED BODY REGION, INITIAL ENCOUNTER Status: Acute (10) Leukocytosis Code(s): D72.829 - ELEVATED WHITE BLOOD CELL COUNT, UNSPECIFIED Status: Acute QualifierTitle: Leukocytosis type: unspecified Qualified Code(s): D72.829 - Elevated white blood cell count, unspecified - Plan Plan: Hyponatremia - since at least August of this year, pt is chronically in the mid 120- low 130 range. - Na this am is 130, IVF has been stopped. On recheck yesterday afternoon Na got as high as 133. At this point pt is back to where he has been chronically. Will work to slowly increase Na via diet and PO NaCl if needed. Being on a regular diet and not being able to drink beer should correct his Na without additional intervention. - Recheck BMP q8 Fever - In the setting of a WBC coutn of 16.4 there is concern for infection. Blood/ Urine cx, C diff antigen, and UA are pending. - Most likely source GI - Consider starting empiric abx Leukocytosis - Was down trending yesterday now acutely elevated with left shift - Work up as above Diarrhea - multiple episodes of watery diarrhea. - C diff pending - Stable vitals, pt currently appears that the is able to maintain volume status PO. Will restart IVF if he becomes volume down Stage IV rectal ca - Onc is aware of hospitalization and wants pt to follow up out patient after discharge Alcoholism - ASE protocol. Currently low concern for DT Skin abrasion - Clean, does not appear to be infected - wound care has been consulted Chronic microcytic anemia - likely secondary to poor diet and blood loss from rectal cancer. - Stable today - Pt on PO iron - Recheck in am Deconditioning - Consult PT, consider rehab at time of dc Thrombocytosis - likely reactive, monitor CBC dispo: pt is currently stable. Working to find source of infection. Likely length of stay 48 hours <Aleks Knox - Last Filed: 10/26/17 06:51> (1) Alcoholism Code(s): F10.20 - ALCOHOL DEPENDENCE, UNCOMPLICATED Status: Acute (2) Adenocarcinoma of colon Code(s): C18.9 - MALIGNANT NEOPLASM OF COLON, UNSPECIFIED Status: Chronic (3) Hyperbilirubinemia Code(s): E80.6 - OTHER DISORDERS OF BILIRUBIN METABOLISM Status: Acute (4) Multiple falls Code(s): R29.6 - REPEATED FALLS Status: Acute (5) Pulmonary nodules Status: Acute <Trenton Perrin - Last Filed: 10/26/17 10:57> Attending Addendum - Attending Addendum Date/Time: 10/26/17 4628 I personally evaluated the patient and discussed the management with Dr. Knox. I agree with the History, Examination, Assessment and Plan documented above with any addition or exceptions noted below. <Trenton Perrin - Last Filed: 10/26/17 10:57>
[2017-10-26 06:57] LABS: Bilirubin Negative (Negative); Blood, Urine Negative (Negative); Clarity CLEAR (Clear); Glucose, Urine (Dipstick) Negative (Negative); Leukocyte Negative (Negative); Nitrite Negative (Negative); Protein, Urine (Dipstick) Negative (Neg-Trace); Specific Gravity, Urine 1.014 (1.002-1.036); Urobilinogen 0.2 mg/dL (0.2-1.0); pH, Urine 5.5 (5.0-9.0)
[2017-10-26] MEDS: Folic Acid 1 MG TAB PO SCH (09:07)
[2017-10-26] MEDS: Enoxaparin Sodium 40 MG/0.4 ML SYRINGE SC SCH (09:07)
[2017-10-26] MEDS: Ferrous Sulfate 325 MG TAB PO SCH ×2 (09:07→16:09)
[2017-10-26] MEDS: Magnesium Chloride 64 MG TAB PO SCH ×2 (10:06→20:59)
[2017-10-26] MEDS: Acetaminophen 325 MG TAB PO PRN ×2 (12:37→21:08)
[2017-10-26 12:53] LABS: Anion Gap 14 mmol/L (10-20); BUN (Urea Nitrogen) 9 mg/dL (8.4-25.7); Calc. Creatinine Clearance 120 mL/min (70-130); Calcium 8.5 mg/dL (7.8-10.44); Carbon Dioxide 27 mmol/L (23-31); Chloride 91 mmol/L (98-107); Estimated GFR-MDRD Greater than 90; Glucose 120 mg/dL (80-115); Potassium 3.7 mmol/L (3.5-5.1); Sodium 128 mmol/L (136-145)
[2017-10-26] MEDS: Vancomycin HCl 1.5 GM in Sodium Chloride 0.9% 250 ML 300 ML IVPB SCH ×2 (13:21→20:58)
[2017-10-26 21:03] LABS: Anion Gap 13 mmol/L (10-20); BUN (Urea Nitrogen) 11 mg/dL (8.4-25.7); Calc. Creatinine Clearance 103 mL/min (70-130); Calcium 8.1 mg/dL (7.8-10.44); Carbon Dioxide 25 mmol/L (23-31); Chloride 93 mmol/L (98-107); Estimated GFR-MDRD 89; Glucose 110 mg/dL (80-115); Potassium 3.6 mmol/L (3.5-5.1); Sodium 127 mmol/L (136-145)
[2017-10-27] MEDS: Vancomycin HCl 1.5 GM in Sodium Chloride 0.9% 250 ML 300 ML IVPB SCH (04:40)
[2017-10-27 05:40] LABS: #Monocytes 0.9 thou/uL (0.11-0.59); #Neutrophils 6.4 thou/uL (1.40-6.50); %Basophils 0.1 % (0.0-1.0); %Eosinophils 0.2 % (0.0-10.0); %Lymphocytes 12.3 % (21.0-51.0); %Monocytes 10.2 % (0.0-10.0); %Neutrophils 77.2 % (42.0-75.0); Hemoglobin 8.8 g/dL (14.0-18.0); Mean Corpuscular HGB CONC 31.4 g/dL (32.0-36.0); Mean Corpuscular Hemoglobin 24.8 pg (27.0-31.0); Mean Corpuscular Volume 78.7 fl (80.0-94.0); Mean Platelet Volume 5.7 fL (7.4-10.4); Platelet Count 500 thou/uL (130-400); RBC Distribution Width 16.9 % (11.5-14.5); Red Blood Cell (RBC) Count 3.54 mill/uL (4.70-6.10); White Blood Cell (WBC) Count 8.3 thou/uL (4.8-10.8)
[2017-10-27 06:21] LABS: Anion Gap 13 mmol/L (10-20); BUN (Urea Nitrogen) 12 mg/dL (8.4-25.7); Calc. Creatinine Clearance 118 mL/min (70-130); Calcium 8.2 mg/dL (7.8-10.44); Carbon Dioxide 27 mmol/L (23-31); Chloride 94 mmol/L (98-107); Estimated GFR-MDRD Greater than 90; Glucose 105 mg/dL (80-115); Potassium 3.5 mmol/L (3.5-5.1); Sodium 130 mmol/L (136-145)
--- NOTE | 2017-10-27 08:20 | PDOC.FM ---
- Subjective Subjective: 67 yo male initially admitted for hyponatremia and since diagnosed with staph bacteremia. No acute events over night. Pt with no new complaints, he states that he still has general malaise. - Objective MAR Reviewed: Yes Vital Signs & Weight: Vital Signs (12 hours) Temp Pulse Resp BP BP Pulse Ox 10/27/17 07:42 94 18 117/57 L 97 10/27/17 04:00 99.6 F 107 H 18 132/70 98 10/27/17 00:00 98.3 F 99 18 145/67 H 98 10/26/17 21:00 99.9 F H 107 H 18 133/58 L 97 Weight Admit Weight 88.496 kg Weight 88.451 kg I&O: 10/26/17 10/27/17 10/28/17 06:59 06:59 06:59 Intake Total 1720 2720 Output Total 775 700 Balance 945 2019 Result Diagrams: 10/27/17 05:03 10/27/17 05:03 <Aleks Knox - Last Filed: 10/27/17 08:18> - Objective Vital Signs & Weight: Vital Signs (12 hours) Temp Pulse Resp BP BP Pulse Ox 10/27/17 10:12 100.3 F H 10/27/17 08:00 117/57 L 10/27/17 07:42 94 18 117/57 L 97 10/27/17 04:00 99.6 F 107 H 18 132/70 98 Weight Admit Weight 88.496 kg Weight 88.451 kg I&O: 10/26/17 10/27/17 10/28/17 06:59 06:59 06:59 Intake Total 1720 2720 Output Total 775 700 Balance 945 2019 Result Diagrams: 10/27/17 05:03 10/27/17 05:03 <Jamee Aviles - Last Filed: 10/27/17 12:17> Phys Exam - Physical Examination Constitutional: NAD HEENT: moist MMs, sclera anicteric Neck: no JVD, full ROM Respiratory: clear to auscultation bilateral Cardiovascular: RRR, no significant murmur Gastrointestinal: soft, non-tender, no distention, positive bowel sounds Musculoskeletal: no edema, pulses present Neurological: non-focal, moves all 4 limbs Psychiatric: normal affect, A&O x 3 Skin: normal turgor Deviation from normal: abrasion on abdomen and leg, healing. Lesions are clean w /o drainage <Aleks Knox - Last Filed: 10/27/17 08:18> Dx/Plan (1) Bacteremia Code(s): R78.81 - BACTEREMIA Status: Acute (2) Diarrhea Code(s): R19.7 - DIARRHEA, UNSPECIFIED Status: Acute (3) Fever Code(s): R50.9 - FEVER, UNSPECIFIED Status: Acute (4) Hyponatremia Code(s): E87.1 - HYPO-OSMOLALITY AND HYPONATREMIA Status: Acute (5) Microcytic anemia Code(s): D50.9 - IRON DEFICIENCY ANEMIA, UNSPECIFIED Status: Chronic (6) Physical deconditioning Code(s): R53.81 - OTHER MALAISE Status: Chronic (7) Thrombocytosis Status: Acute (8) Adenocarcinoma of colon Code(s): C18.9 - MALIGNANT NEOPLASM OF COLON, UNSPECIFIED Status: Chronic (9) Alcohol abuse Code(s): F10.10 - ALCOHOL ABUSE, UNCOMPLICATED Status: Chronic (10) Skin abrasion Code(s): T14.8XXA - OTHER INJURY OF UNSPECIFIED BODY REGION, INITIAL ENCOUNTER Status: Acute (11) Leukocytosis Code(s): D72.829 - ELEVATED WHITE BLOOD CELL COUNT, UNSPECIFIED Status: Acute QualifierTitle: Leukocytosis type: unspecified Qualified Code(s): D72.829 - Elevated white blood cell count, unspecified - Plan Plan: Bacteremia - Cultures found Staph A, sensitivities pending - Continue IV vanc, trough due this afternoon, Change to narrow spectrum when cx result - afebrile, stable vitals. Most likely source at this point is skin related Hyponatremia - since at least August of this year, pt is chronically in the mid 120- low 130 range. - Na this am is 130. This is stable, will continue to slowly increase Na via diet. - Recheck BMP in am Fever - resolved Leukocytosis - Responding to abx, now 8.3 Diarrhea - C diff negative. Diarrhea resolved Stage IV rectal ca - Onc is aware of hospitalization and wants pt to follow up out patient after discharge Alcoholism - ASE protocol. Currently low concern for DT Skin abrasion - wound care has been consulted Chronic microcytic anemia - likely secondary to poor diet and blood loss from rectal cancer. - Stable today - Pt on PO iron - Recheck in am Deconditioning - Consult PT, consider rehab at time of dc Thrombocytosis - likely reactive, monitor CBC dispo: pt is currently stable. Working to find source of infection. Likely length of stay 48 hours <Aleks Knox - Last Filed: 10/27/17 08:18> Attending Addendum - Attending Addendum Date/Time: 10/27/17 9880 I personally evaluated the patient and discussed the management with Dr. Smith and Dr. Knox I agree with the History, Examination, Assessment and Plan documented above with any addition or exceptions noted below. 67 yo male with hx of stage IV colon cancer admitted for hyponatriemia and subsequently found to have MSSA bacteremia. Will de-escalate antibiotics to Cefazolin. Will discuss with Natalya as well. Rule out other complications related to bacteremia including osteo and endocarditis. Check ESR level today. Patient very poor historian. Afebrile overnight. Will need repeat blood cultures tomorrow inorder to evaluate resolution. Plan treatment for 2 wks if only complicated by bacteremia. Will need to discuss with Onc due to colon cancer. CM consulted to help with dispo planning. Rule out other immune compromising infections if not already known. Na stable. Will continue to monitor. Adjust by 5 mEq. Monitor for alcohol withdrawal symptoms. ABrayMD <Jamee Aviles - Last Filed: 10/27/17 12:17>
[2017-10-27] MEDS: Enoxaparin Sodium 40 MG/0.4 ML SYRINGE SC SCH (10:08)
[2017-10-27] MEDS: Acetaminophen 325 MG TAB PO PRN (10:09)
[2017-10-27] MEDS: Ferrous Sulfate 325 MG TAB PO SCH ×2 (10:09→17:36)
[2017-10-27] MEDS: Folic Acid 1 MG TAB PO SCH (10:09)
[2017-10-27] MEDS: Magnesium Chloride 64 MG TAB PO SCH ×2 (10:09→21:08)
[2017-10-27] MEDS ORDERED: Lorazepam 0.5 MG TAB PO SCH (11:30)
[2017-10-27 12:33] LABS: Vancomycin, Trough 20.5 ug/mL
[2017-10-27 12:54] LABS: HIV (1/2) Antibody/Antigen Non-Reactive (NonReactive)
[2017-10-27 12:59] LABS: Syphilis Antibody Nonreactive (Nonreactive); Syphilis Antibody Index 0.06 S/CO (<1.00 Non-Reactive)
[2017-10-27] MEDS ORDERED: Vancomycin HCl 1.25 GM in Sodium Chloride 0.9% 250 ML 250 ML IVPB SCH (14:00)
[2017-10-27] MEDS: CEFAZOLIN/Water 2 GM/20 ML SYRINGE SLOW IVP SCH (17:36)
--- NOTE | 2017-10-27 18:35 | CT ---
CT THORAX NONCONTRAST: 10/27/2017 5:12 p.m. HISTORY: A 67-year-old male for followup of pulmonary nodules. Bacteremia. COMPARISON: 09/07/2017 FINDINGS: A 0.7 x 0.6 x 0.8 cm noncalcified left upper lobe pulmonary nodule abutting the anterolateral pleural surface, probably in apical segment. An approximately 1 x 0.7 x 1.2 cm noncalcified pulmonary nodul e at the medial basilar aspect of the left lower lobe. Several centimeters lateral to that there is a 0.8 x 0.5 x 0.6 cm noncalcified pulmonary nodule in the left lower lobe. There are more numerous nodules in the contralateral right lung. This includes 1.9 x 1.9 x 1.2 cm no ncalcified pulmonary nodules at the basilar aspect of the right lower lobe, abutting the dome of the right hemidiaphragm. There is at least one other right lower lobe pulmonary nodule, tiny. There is a right perihilar, right middle lobe, lobulated, noncalcified mass, which abuts bronchi and pulmonary blood vessels, measuring approximately 2.4 x 1.4 x 1.2 cm. Much more anteriorly and peripherally, there is a pleural-based, 1.4 x 1.1 x 1.4 cm noncalcified pulm onary nodule. There are additional right middle lobe pulmonary nodules. No definite pulmonary nodul e is identified in the right upper lobe. There are old fracture deformities involving the anterolateral and lateral aspects of the right fifth , sixth, seventh, eighth, and ninth ribs. No pleural effusion. No thoracic aortic aneurysm. There are bilateral adrenal masses, with the right one being new since the previous CT, measuring approxima tely 3 x 1.5 x 4 cm. The left one has grown, currently measuring approximately 4 x 2.5 x 3.5 cm. No cardiomegaly or pericardial effusion. No mediastinal lymphadenopathy. IMPRESSION: 1. Interval growth of bilateral pulmonary nodules is evidence for interval worsening of pulmonary me tastases. 2. Interval growth of bilateral adrenal metastases. 3. Multiple old right rib fractures. 4. No evidence of acute pneumonia. RALPH Bass POS: LAUREN
--- NOTE | 2017-10-27 22:28 | CON ---
DATE OF CONSULTATION: 10/27/2017 REASON FOR CONSULTATION: Bacteremia. HISTORY OF PRESENT ILLNESS: A 67-year-old patient, who has a history of alcoholism and admitted in 09/[address] of chest, which showed multiple bilateral pulmonary nodules. He then underwent abdo bahman and pelvic CT, which showed a large necrotic left periaortic lymph node with small retroperiton eal lymph nodes, and there was abnormal soft tissue mass involving the left aspect of the distal sigm oid colon. He underwent endoscopy and pathology returned moderate to poorly differentiated invasive adenocarcinoma. He presented to the emergency room with pain all over on 10/24/2017, and denied any headaches, no dyspnea, no cough, no abdominal pain or diarrhea. No genitourinary symptoms. No neuro logical symptoms. The initial findings included blood pressure of 130/50, pulse 87, respirations 20, temperature 98.5, and lung sounds are clear. Heart exam is normal. Abdomen soft. Initial findings also included a white cell count of 14,000 with hemoglobin of 8, MCV 74, platelets 732. He had a cr eatinine of 0.8. Urinalysis was not remarkable. HIV serology syphilis serology negative. Two HER-2 sets of blood cultures positive for Staphylococcus aureus, likely methicillin-susceptible Staphyloco ccus aureus. Currently, Mr. Mejía is awake. He is a little bit confused. [facility] and knew the year. Denied any headaches. No back pain. No other joint sympto ms. No dyspnea. No abdominal pain. No genitourinary symptoms. PAST MEDICAL HISTORY: Colon cancer with presumable lung metastases, alcoholism. The patient has not yet been started on chemotherapy. ALLERGIES: None. CURRENT MEDICATIONS: Tylenol, Lovenox, Feosol, Folvite, Slow-Mag, thiamine, vancomycin. FAMILY HISTORY: Noncontributory. SOCIAL HISTORY: Alcoholism, former smoker. PHYSICAL EXAMINATION: VITAL SIGNS: T-max 101.3, blood pressure 120/60, pulse 84, respirations 20. SKIN: Exam showed areas of abrasion in the gluteal region with some brown scabs overlying it. Some abrasions in the groin. Some other abrasions in the opposite side as well. No lymphadenopathy, quit e disheveled appearance, unkempt. HEENT: Ocular movements are conjugate. Conjunctivae are normal. Oral cavity with numerous teeth in place with a lot of decay and gum disease. No thrush. NECK: Supple. No jugular vein distention. LUNGS: Symmetric. Clear breath sounds. HEART: S1, S2, regular rate without murmurs. ABDOMEN: Soft, not distended, no ascites. No bladder distention. EXTREMITIES: No joint inflammatory activity noted. Pulses 1+ dorsalis pedis. No clonus. NEUROLOGIC: Plantar responses are flexure. Cognitive function: The patient is awake, alert, seems to be oriented, but sluggish with replies. A little bit confused. Strength in upper and lower extre mities is preserved. LABORATORY DATA: Followup labs: White cell count is down to 8.3, hemoglobin 8.8, platelets 500 with 77% neutrophils. Chemistry is not remarkable except for hyponatremia. Urinalysis was fairly normal . Toxicology, positive plasma alcohol. Microbiology noted above. ASSESSMENT: Recently identified colon cancer, apparently with some nodular lesions. There was a nod ule in the right lung base noted. No pericardial effusion. Most of the areas of possible metastases were in the periaortic lymph nodes and possible left adrenal gland metastases as well. Alcoholism a nd recently diagnosed adenocarcinoma of rectum with lymph node metastases and possible lung metastase s, who presents now with Staphylococcus aureus bacteremia, methicillin susceptible of unclear primary site. DISCUSSION: Differential diagnosis includes bacteremia from the malignancy or from the skin site. O ne of the areas of abrasion that he has in the skin in the gluteal region or groin, would then spread to the blood stream, may have had secondary dissemination to other sites not yet apparent at this po int in time, for example, spine and joints. Septic pulmonary involvement is not ruled out. Endocard itis to be considered. We will order a CT of chest and echocardiogram if not ordered yet. Switch hi m to cefazolin or Rocephin. The patient will need a PICC line placement and protracted IV antimicrob ial therapy administration for at least 4 weeks if no deep-seated spread is identified.
[2017-10-28] MEDS: CEFAZOLIN/Water 2 GM/20 ML SYRINGE SLOW IVP SCH ×3 (01:17→17:27)
[2017-10-28 06:55] LABS: #Lymphocytes 1.6 thou/uL (1.20-3.40); #Monocytes 0.9 thou/uL (0.11-0.59); #Neutrophils 6.5 thou/uL (1.40-6.50); %Basophils 0.4 % (0.0-1.0); %Eosinophils 0.3 % (0.0-10.0); %Lymphocytes 17.4 % (21.0-51.0); %Monocytes 9.7 % (0.0-10.0); %Neutrophils 72.2 % (42.0-75.0); Hemoglobin 8.3 g/dL (14.0-18.0); Mean Corpuscular HGB CONC 32.4 g/dL (32.0-36.0); Mean Corpuscular Hemoglobin 25.5 pg (27.0-31.0); Mean Corpuscular Volume 78.9 fl (80.0-94.0); Mean Platelet Volume 5.7 fL (7.4-10.4); Platelet Count 439 thou/uL (130-400); RBC Distribution Width 16.5 % (11.5-14.5); Red Blood Cell (RBC) Count 3.23 mill/uL (4.70-6.10)
[2017-10-28 07:16] LABS: Anion Gap 14 mmol/L (10-20); BUN (Urea Nitrogen) 11 mg/dL (8.4-25.7); Calc. Creatinine Clearance 123 mL/min (70-130); Carbon Dioxide 27 mmol/L (23-31); Chloride 93 mmol/L (98-107); Estimated GFR-MDRD Greater than 90; Glucose 116 mg/dL (80-115); Potassium 3.7 mmol/L (3.5-5.1); Sodium 130 mmol/L (136-145)
--- NOTE | 2017-10-28 08:47 | PDOC.FM ---
- Subjective Subjective: 67 yo M w/hx of metastatic rectal adenoma. Mets to lung and adrenals. Pt was admitted originally for hyponatremia now continues inpt due to MSSA bacteremia. Pt without new complaint today, there were no acute events over night. Pt complains of continued general malaise. - Objective MAR Reviewed: Yes Vital Signs & Weight: Vital Signs (12 hours) Temp Pulse Resp BP BP BP Pulse Ox 10/28/17 07:42 98 F 89 18 124/58 L 95 10/28/17 04:00 99.7 F H 95 20 133/61 133/61 98 10/28/17 00:00 99.1 F 99 20 117/56 L 96 10/27/17 21:00 98.3 F 98 18 135/68 98 Weight Admit Weight 88.496 kg Weight 88.904 kg I&O: 10/27/17 10/28/17 10/29/17 06:59 06:59 06:59 Intake Total 2720 1178 Output Total 700 Balance 2019 1178 Result Diagrams: 10/28/17 06:46 10/28/17 06:46 EKG Reviewed by me: Yes <Aleks Knox - Last Filed: 10/28/17 09:04> - Objective Vital Signs & Weight: Vital Signs (12 hours) Temp Pulse Resp BP BP Pulse Ox 10/28/17 11:07 98.6 F 77 22 H 122/58 L 10/28/17 07:42 98 F 89 18 124/58 L 95 10/28/17 04:00 99.7 F H 95 20 133/61 133/61 98 Weight Admit Weight 88.496 kg Weight 88.904 kg I&O: 10/27/17 10/28/17 10/29/17 06:59 06:59 06:59 Intake Total 2720 1178 Output Total 700 Balance 2019 1178 Result Diagrams: 10/28/17 06:46 10/28/17 06:46 <Jamee Aviles - Last Filed: 10/28/17 13:24> Phys Exam - Physical Examination Constitutional: NAD HEENT: moist MMs, sclera anicteric Neck: no JVD Respiratory: clear to auscultation bilateral Cardiovascular: RRR, no significant murmur, no rub Gastrointestinal: soft, non-tender, no distention, positive bowel sounds Musculoskeletal: no edema Neurological: non-focal, moves all 4 limbs Psychiatric: normal affect, A&O x 3 Skin: normal turgor Deviation from normal: Abrasion over abdomen, clean and without exudate. Improving <Aleks Knox - Last Filed: 10/28/17 09:04> Dx/Plan (1) Bacteremia Code(s): R78.81 - BACTEREMIA Status: Acute (2) Diarrhea Code(s): R19.7 - DIARRHEA, UNSPECIFIED Status: Acute (3) Fever Code(s): R50.9 - FEVER, UNSPECIFIED Status: Acute (4) Hyponatremia Code(s): E87.1 - HYPO-OSMOLALITY AND HYPONATREMIA Status: Acute (5) Microcytic anemia Code(s): D50.9 - IRON DEFICIENCY ANEMIA, UNSPECIFIED Status: Chronic (6) Physical deconditioning Code(s): R53.81 - OTHER MALAISE Status: Chronic (7) Thrombocytosis Status: Acute (8) Adenocarcinoma of colon Code(s): C18.9 - MALIGNANT NEOPLASM OF COLON, UNSPECIFIED Status: Chronic (9) Alcohol abuse Code(s): F10.10 - ALCOHOL ABUSE, UNCOMPLICATED Status: Chronic (10) Skin abrasion Code(s): T14.8XXA - OTHER INJURY OF UNSPECIFIED BODY REGION, INITIAL ENCOUNTER Status: Acute (11) Leukocytosis Code(s): D72.829 - ELEVATED WHITE BLOOD CELL COUNT, UNSPECIFIED Status: Acute QualifierTitle: Leukocytosis type: unspecified Qualified Code(s): D72.829 - Elevated white blood cell count, unspecified - Plan Plan: Bacteremia - Cultures found MSSA. - Dr Hoang consulted for outpt IV abx and duration. Appreciate recommendation - Abx changed to cefazolin yesterday - afebrile, stable vitals. Most likely source at this point is skin related - Echo yesterday to eval for endocarditis was unable to r/o, JASON recommended by cardiology. Will order for today Hyponatremia - since at least August of this year, pt is chronically in the mid 120- low 130 range. - Continues to be stable in low 130 range - Recheck BMP in am Fever - resolved Leukocytosis - resolved Diarrhea - C diff negative. Diarrhea resolved Stage IV rectal ca - Onc is aware of hospitalization and wants pt to follow up out patient after discharge - repeat CT shows worsening pulm and adrenal mets Alcoholism - ASE protocol. Currently low concern for DT Skin abrasion - wound care has been consulted Chronic microcytic anemia - stable - continue iron - monitor CBC in am Deconditioning - Consult PT, consider rehab or outpt pt Thrombocytosis - likely reactive down trending with abx dispo: pt is currently stable. Likely LOS 1-2 days pending completion of bacteremia work up <Aleks Knox - Last Filed: 10/28/17 09:04> Attending Addendum - Attending Addendum Date/Time: 10/28/17 1321 I personally evaluated the patient and discussed the management with Dr. Smith and Dr. Knox I agree with the History, Examination, Assessment and Plan documented above with any addition or exceptions noted below. 67 yo male with hx of stage IV colon cancer admitted for hyponatriemia and subsequently found to have MSSA bacteremia. Natalya following. Agreed with current plan. Will schedule for PICC line placement. Still working up primary source of infection. JASON later today. Na stable. No s/sx of alcohol withdrawal. ABrayMD <Jamee Aviles - Last Filed: 10/28/17 13:24>
[2017-10-28] MEDS: Enoxaparin Sodium 40 MG/0.4 ML SYRINGE SC SCH (09:43)
[2017-10-28] MEDS: Folic Acid 1 MG TAB PO SCH (09:44)
[2017-10-28] MEDS: Magnesium Chloride 64 MG TAB PO SCH ×2 (09:44→20:41)
[2017-10-28] MEDS: Ferrous Sulfate 325 MG TAB PO SCH ×2 (09:44→17:26)
--- NOTE | 2017-10-28 17:38 | PRG ---
DATE OF SERVICE: 10/28/2017 SUBJECTIVE: Mr. Mejía is more responsive. Denies any headaches. No back pain. Pain in the right a ntecubital area. No abdominal pain or diarrhea. He is viding without difficulty. PHYSICAL EXAMINATION: VITAL SIGNS: Normal. GENERAL: Awake, alert. LUNGS: Clear. HEART: S1, S2, regular rate without murmurs. ABDOMEN: Soft and not distended. EXTREMITIES: Right antecubital fossa has fusiform area of induration and inflammatory change with er ythema consistent with thrombophlebitis. Moves extremities equally. LABORATORY DATA: White cell count 9.0, hemoglobin 8.3, platelets 439. Sodium 130, creatinine 0.71. HIV and syphilis serology negative. Chemistry unremarkable. Echocardiogram was of poor technical q uality. ASSESSMENT AND DISCUSSION: Colon cancer metastatic to lungs and adrenal glands, alcoholism, likely s eptic thrombophlebitis, right antecubital fossa vein with bacteremia. In view of the clinical findin gs consistent with thrombophlebitis, I would cancel a JASON and just treated for thrombophlebitis. We will need at least 4 weeks of therapy. May need surgical debridement depending on clinical progress. Disposition is going to be made difficult because of his social problems, he will need eventually to have a PICC line inserted.
--- NOTE | 2017-10-28 20:40 | ULT ---
ULTRASOUND DOPPLER DUPLEX VENOUS RIGHT UPPER EXTREMITY: 10/28/17 HISTORY: 67-year-old male with right upper extremity swelling and edema. TECHNIQUE: Healy scale, color flow, and spectral analysis of major veins of right upper extremity. Compression ap plied to all veins except the subclavian. FINDINGS: There is thrombus causing noncompressibility and lack of blood flow in the cephalic and basilic veins , localized at the antecubital level. There is no thrombosis in the radial and ulnar veins. Proximal to the elbow, there is no thrombosis of the basilic and cephalic veins in the arm. There is no thromb osis of the brachial, axillary, subclavian, or internal jugular, veins. IMPRESSION: Positive for acute venous thrombosis of the right cephalic and basilic veins isolated to the elbow. Code T POS: PAUL
[2017-10-29] MEDS: CEFAZOLIN/Water 2 GM/20 ML SYRINGE SLOW IVP SCH ×3 (01:36→16:39)
[2017-10-29 05:01] LABS: Anion Gap 12 mmol/L (10-20); BUN (Urea Nitrogen) 12 mg/dL (8.4-25.7); Calc. Creatinine Clearance 118 mL/min (70-130); Calcium 8.4 mg/dL (7.8-10.44); Carbon Dioxide 31 mmol/L (23-31); Chloride 94 mmol/L (98-107); Estimated GFR-MDRD Greater than 90; Glucose 79 mg/dL (80-115); Potassium 3.8 mmol/L (3.5-5.1); Sodium 133 mmol/L (136-145)
--- NOTE | 2017-10-29 08:53 | PDOC.FM ---
- Subjective Subjective: 67 yo M admitted initially for hyponatremia and since complicated by MSSA bacteremia. Today he is found resting comfortably and in good spirits. He states that he does feel better as compared to yesterday. There were no acute events over night and he denies any new symptoms. - Objective MAR Reviewed: Yes Vital Signs & Weight: Vital Signs (12 hours) Temp Pulse Resp BP BP Pulse Ox 10/29/17 04:00 98.1 F 84 18 107/51 L 107/51 L 98 10/29/17 00:00 126/62 Weight Admit Weight 88.496 kg Weight 88.949 kg I&O: 10/28/17 10/29/17 10/30/17 06:59 06:59 06:59 Intake Total 1178 950 Balance 1178 950 Result Diagrams: 10/28/17 06:46 10/29/17 03:50 <Aleks Knox - Last Filed: 10/29/17 08:43> - Objective Vital Signs & Weight: Vital Signs (12 hours) Temp Pulse Resp BP BP BP BP 10/29/17 11:35 97.7 F 74 16 102/52 L 10/29/17 08:53 97.9 F 81 18 111/60 10/29/17 08:00 111/60 10/29/17 04:00 98.1 F 84 18 107/51 L 107/51 L Pulse Ox 10/29/17 11:35 98 10/29/17 08:53 97 10/29/17 08:00 10/29/17 04:00 98 Weight Admit Weight 88.496 kg Weight 88.949 kg I&O: 10/28/17 10/29/17 10/30/17 06:59 06:59 06:59 Intake Total 1178 950 Balance 1178 950 Result Diagrams: 10/29/17 09:17 10/29/17 09:17 <Jamee Aviles - Last Filed: 10/29/17 12:25> Phys Exam - Physical Examination Constitutional: NAD HEENT: moist MMs, sclera anicteric Neck: no JVD, full ROM Respiratory: clear to auscultation bilateral Cardiovascular: RRR, no significant murmur, no rub Gastrointestinal: soft, non-tender, no distention, positive bowel sounds Musculoskeletal: pulses present Large superficial vv thrombosis R AC Neurological: non-focal, moves all 4 limbs Psychiatric: normal affect, A&O x 3 Skin: normal turgor Deviation from normal: Healing abdominal abrasions <Aleks Knox - Last Filed: 10/29/17 08:43> Dx/Plan (1) Thrombophlebitis of superficial veins of upper extremities Code(s): I80.8 - PHLEBITIS AND THROMBOPHLEBITIS OF OTHER SITES Status: Acute QualifierTitle: Laterality: right Qualified Code(s): I80.8 - Phlebitis and thrombophlebitis of other sites (2) Bacteremia Code(s): R78.81 - BACTEREMIA Status: Acute (3) Diarrhea Code(s): R19.7 - DIARRHEA, UNSPECIFIED Status: Acute (4) Fever Code(s): R50.9 - FEVER, UNSPECIFIED Status: Acute (5) Hyponatremia Code(s): E87.1 - HYPO-OSMOLALITY AND HYPONATREMIA Status: Acute (6) Microcytic anemia Code(s): D50.9 - IRON DEFICIENCY ANEMIA, UNSPECIFIED Status: Chronic (7) Physical deconditioning Code(s): R53.81 - OTHER MALAISE Status: Chronic (8) Thrombocytosis Status: Acute (9) Adenocarcinoma of colon Code(s): C18.9 - MALIGNANT NEOPLASM OF COLON, UNSPECIFIED Status: Chronic (10) Alcohol abuse Code(s): F10.10 - ALCOHOL ABUSE, UNCOMPLICATED Status: Chronic (11) Skin abrasion Code(s): T14.8XXA - OTHER INJURY OF UNSPECIFIED BODY REGION, INITIAL ENCOUNTER Status: Acute (12) Leukocytosis Code(s): D72.829 - ELEVATED WHITE BLOOD CELL COUNT, UNSPECIFIED Status: Acute QualifierTitle: Leukocytosis type: unspecified Qualified Code(s): D72.829 - Elevated white blood cell count, unspecified - Plan Plan: Thrombophlebitis of R cephalic and basilic vv - new finding late yesterday - US shows thrombosis of cephalic and basilic veins limited to the elbow. - This has developed in the presence of prophylactic lovenox. Dt pt's known cancer, recommendations are to treat with LMWH. Will start theraputic lovenox today Bacteremia - Source is skin wounds vs R superficial vein thrombosis. Cultures found MSSA. - Dr Hoang consulted, recommends 4 weeks IV abx - afebrile, stable vitals - pt does not have reliable transportation. CM consult has been placed to help with outpt abx/dc planning Hyponatremia - stable - Recheck BMP in am Fever - resolved Leukocytosis - resolved Diarrhea - C diff negative. Diarrhea resolved Stage IV rectal ca - Onc is aware of hospitalization and wants pt to follow up out patient after discharge - repeat CT shows worsening pulm and adrenal mets Alcoholism - 5 days since last drink, low risk for DT Skin abrasion - healing, wound care has been consulted Chronic microcytic anemia - stable - continue iron - monitor CBC in am Deconditioning - Consult PT, consider rehab or outpt pt Thrombocytosis - likely reactive down trending with abx dispo: pt is currently stable. Likely LOS 1-2 days, CM consult pending for options to continue abx after discharge <Aleks Knox - Last Filed: 10/29/17 08:43> Attending Addendum - Attending Addendum Date/Time: 10/29/17 1220 I personally evaluated the patient and discussed the management with Dr. Smith and Dr. Knox I agree with the History, Examination, Assessment and Plan documented above with any addition or exceptions noted below. 67 yo male with hx of stage IV colon cancer admitted for hyponatriemia and subsequently found to have MSSA bacteremia. ID co-managing MSSA infection. Patient now with superficial thrombophlebitis of large veins of right UE. Will treat with warm compress. NASIDs as long as renal function stable. Due to high risk for deep VTE will treat with anticoagulant for now to help with treatment and symptoms. Saeid <Jamee Aviles - Last Filed: 10/29/17 12:25>
[2017-10-29] MEDS: Enoxaparin Sodium 100 MG/ML SYRINGE SC SCH ×2 (08:56→21:25)
[2017-10-29] MEDS: Folic Acid 1 MG TAB PO SCH (08:56)
[2017-10-29] MEDS: Ferrous Sulfate 325 MG TAB PO SCH ×2 (08:56→16:39)
[2017-10-29] MEDS ORDERED: Enoxaparin Sodium 80 MG/0.8 ML SYRINGE SC SCH (09:00)
[2017-10-29] MEDS: Magnesium Chloride 64 MG TAB PO SCH ×2 (09:02→21:24)
[2017-10-29 09:28] LABS: Hemoglobin 7.8 g/dL (14.0-18.0); Platelet Count 405 thou/uL (130-400)
[2017-10-29 09:58] LABS: Calc. Creatinine Clearance 119 mL/min (70-130); Estimated GFR-MDRD Greater than 90
[2017-10-29] MEDS: Ibuprofen 600 MG TAB PO SCH (16:38)
[2017-10-30] MEDS: Ibuprofen 600 MG TAB PO SCH ×3 (01:32→16:59)
[2017-10-30] MEDS: CEFAZOLIN/Water 2 GM/20 ML SYRINGE SLOW IVP SCH ×3 (01:32→16:59)
--- NOTE | 2017-10-30 08:46 | PDOC.FM ---
- Subjective Subjective: 67 yo M here for MSSA septicemia. Pt feeling well this morning and has no specific complaints. There were no acute events over night. - Objective MAR Reviewed: Yes Vital Signs & Weight: Vital Signs (12 hours) Temp Pulse Resp BP Pulse Ox 10/30/17 04:00 99.2 F 80 21 H 120/70 97 10/29/17 21:25 97.7 F 83 20 98 Weight Admit Weight 88.496 kg Weight 88.496 kg I&O: 10/29/17 10/30/17 10/31/17 06:59 06:59 06:59 Intake Total 950 620 Balance 950 620 Result Diagrams: 10/29/17 09:17 10/29/17 09:17 <Aleks Knox - Last Filed: 10/30/17 08:44> - Objective Vital Signs & Weight: Vital Signs (12 hours) Temp Pulse Resp BP BP Pulse Ox 10/30/17 11:26 97.4 F L 62 17 126/59 L 100 10/30/17 07:34 98.6 F 78 16 117/60 97 10/30/17 04:00 99.2 F 80 21 H 120/70 97 Weight Admit Weight 88.496 kg Weight 88.496 kg I&O: 10/29/17 10/30/17 10/31/17 06:59 06:59 06:59 Intake Total 950 620 Balance 950 620 Result Diagrams: 10/29/17 09:17 10/29/17 09:17 <Jamee Aviles - Last Filed: 10/30/17 15:58> Phys Exam - Physical Examination Constitutional: NAD HEENT: moist MMs, sclera anicteric Neck: no JVD, full ROM Respiratory: clear to auscultation bilateral Cardiovascular: RRR, no significant murmur Gastrointestinal: soft, non-tender, no distention, positive bowel sounds Musculoskeletal: no edema Neurological: non-focal, moves all 4 limbs Psychiatric: normal affect, A&O x 3 Skin: normal turgor Deviation from normal: Healing abraisons on abdomen. Clean and w/o discharge <Aleks Knox - Last Filed: 10/30/17 08:44> Dx/Plan (1) Thrombophlebitis of superficial veins of upper extremities Code(s): I80.8 - PHLEBITIS AND THROMBOPHLEBITIS OF OTHER SITES Status: Acute QualifierTitle: Laterality: right Qualified Code(s): I80.8 - Phlebitis and thrombophlebitis of other sites (2) Bacteremia Code(s): R78.81 - BACTEREMIA Status: Acute (3) Diarrhea Code(s): R19.7 - DIARRHEA, UNSPECIFIED Status: Acute (4) Fever Code(s): R50.9 - FEVER, UNSPECIFIED Status: Acute (5) Hyponatremia Code(s): E87.1 - HYPO-OSMOLALITY AND HYPONATREMIA Status: Acute (6) Microcytic anemia Code(s): D50.9 - IRON DEFICIENCY ANEMIA, UNSPECIFIED Status: Chronic (7) Physical deconditioning Code(s): R53.81 - OTHER MALAISE Status: Chronic (8) Thrombocytosis Status: Acute (9) Adenocarcinoma of colon Code(s): C18.9 - MALIGNANT NEOPLASM OF COLON, UNSPECIFIED Status: Chronic (10) Alcohol abuse Code(s): F10.10 - ALCOHOL ABUSE, UNCOMPLICATED Status: Chronic (11) Skin abrasion Code(s): T14.8XXA - OTHER INJURY OF UNSPECIFIED BODY REGION, INITIAL ENCOUNTER Status: Acute (12) Leukocytosis Code(s): D72.829 - ELEVATED WHITE BLOOD CELL COUNT, UNSPECIFIED Status: Acute QualifierTitle: Leukocytosis type: unspecified Qualified Code(s): D72.829 - Elevated white blood cell count, unspecified - Plan Plan: Thrombophlebitis of R cephalic and basilic vv - currently on therapeutic lovenox. day 2 of 10 day course - US shows thrombosis of cephalic and basilic veins limited to the elbow. Bacteremia - Source is skin wounds vs R superficial vein thrombosis. - Continue IV abx for MSSA, managed by Dr Hoang - afebrile, stable vitals - pt does not have reliable transportation. CM consult has been placed to help with outpt abx/dc planning. Likely SNF Stage IV rectal ca - Onc is aware of hospitalization and wants pt to follow up out patient after discharge - repeat CT shows worsening pulm and adrenal mets Hyponatremia - stable, at baseline Fever - resolved Leukocytosis - resolved Diarrhea - C diff negative. Diarrhea resolved Alcoholism - 5 days since last drink, low risk for DT Skin abrasion - healing, wound care has been consulted Chronic microcytic anemia - stable - continue iron - monitor Hb q2 days Deconditioning - Consult PT, consider rehab or outpt pt Thrombocytosis - resolved dispo: pt is currently stable. Likely LOS 1-2 days, CM consult pending for options to continue abx after discharge <Aleks Knox - Last Filed: 10/30/17 08:44> Attending Addendum - Attending Addendum Date/Time: 10/30/17 8161 I personally evaluated the patient and discussed the management with Dr. Smith and Dr. Knox I agree with the History, Examination, Assessment and Plan documented above with any addition or exceptions noted below. 67 yo male with hx of stage IV colon cancer admitted for hyponatriemia and subsequently found to have MSSA bacteremia. Doing well. No new complaints. Continue current care. Awaiting dispo per placement vs prolonged hospitalization. ABrtriciaMD <Jamee Aviles - Last Filed: 10/30/17 15:58>
[2017-10-30] MEDS: Magnesium Chloride 64 MG TAB PO SCH ×2 (11:00→21:17)
[2017-10-30] MEDS: Enoxaparin Sodium 100 MG/ML SYRINGE SC SCH ×2 (11:01→21:19)
[2017-10-30] MEDS: Ferrous Sulfate 325 MG TAB PO SCH ×2 (11:02→16:59)
[2017-10-30] MEDS: Folic Acid 1 MG TAB PO SCH (11:02)
--- NOTE | 2017-10-30 11:03 | SPC ---
ULTRASOUND GUIDED LEFT UPPER EXTREMITY PICC PLACEMENT: Date: 10/30/17 HISTORY: Thrombophlebitis, in need of IV access. FINDINGS: Informed consent obtained prior to the procedure. The left antecubital fossa prepped and draped in normal sterile fashion. Skin overlying brachial vein anesthetized with 1% buffered lidocaine. No basilic vein was visualized. With direct sonographic guidance, vascular access needle was advanced into the left brachial vein, an d a .018 wire was advanced to the IVC, subsequently retracted to the cavoatrial junction, intravascul ar length calculated at 43 cm. Needle was removed and replaced with a peel-away sheath. Catheter was cut to 43 cm and advanced over the wire. Wire and peel-away sheath were removed. Tip of catheter over lies the cavoatrial junction. Catheter flushes well and is ready for use. Exposure Data: 0.1 minutes of fluoroscopic time, 371 mGy*cm^2. IMPRESSION: Successful ultrasound guided left upper extremity PICC placement. POS: PAUL
[2017-10-30] MEDS ORDERED: Heparin 10,000 UNITS/ 10 ML VIAL ONE (15:31)
[2017-10-31] MEDS: CEFAZOLIN/Water 2 GM/20 ML SYRINGE SLOW IVP SCH ×3 (01:07→17:35)
[2017-10-31] MEDS: Ibuprofen 600 MG TAB PO SCH (01:07)
[2017-10-31 04:58] LABS: Anion Gap 14 mmol/L (10-20); BUN (Urea Nitrogen) 10 mg/dL (8.4-25.7); Calc. Creatinine Clearance 112 mL/min (70-130); Calcium 8.9 mg/dL (7.8-10.44); Carbon Dioxide 28 mmol/L (23-31); Chloride 97 mmol/L (98-107); Estimated GFR-MDRD Greater than 90; Glucose 95 mg/dL (80-115); Sodium 135 mmol/L (136-145)
--- NOTE | 2017-10-31 09:12 | PDOC.FM ---
- Subjective Subjective: 67 yo M admitted for MSSA bacteremia. Currently doing well and resting comfortably in bed. No complaints this am. No acute events over night - Objective MAR Reviewed: Yes Vital Signs & Weight: Vital Signs (12 hours) Temp Pulse Resp BP Pulse Ox 10/31/17 04:00 97.5 F L 71 20 130/72 98 Weight Admit Weight 88.496 kg Weight 87.997 kg I&O: 10/30/17 10/31/17 11/01/17 06:59 06:59 06:59 Intake Total 620 2400 Balance 620 2400 Result Diagrams: 10/29/17 09:17 10/31/17 03:55 <Aleks Knox - Last Filed: 10/31/17 09:11> - Objective Vital Signs & Weight: Vital Signs (12 hours) Temp Pulse Resp BP Pulse Ox 10/31/17 04:00 97.5 F L 71 20 130/72 98 Weight Admit Weight 88.496 kg Weight 87.997 kg I&O: 10/30/17 10/31/17 11/01/17 06:59 06:59 06:59 Intake Total 620 2400 Balance 620 2400 Result Diagrams: 10/31/17 08:55 10/31/17 03:55 <Jamee Aviles - Last Filed: 10/31/17 11:58> Phys Exam - Physical Examination Constitutional: NAD HEENT: moist MMs, sclera anicteric Neck: no JVD, supple Respiratory: clear to auscultation bilateral Cardiovascular: RRR, no significant murmur, no rub Gastrointestinal: soft, non-tender, no distention Musculoskeletal: no edema Stable superfical thrombosis R AC. Non tender Neurological: non-focal, normal sensation Psychiatric: normal affect, A&O x 3 Skin: no rash, normal turgor <Aleks Knox - Last Filed: 10/31/17 09:11> Dx/Plan (1) Thrombophlebitis of superficial veins of upper extremities Code(s): I80.8 - PHLEBITIS AND THROMBOPHLEBITIS OF OTHER SITES Status: Acute QualifierTitle: Laterality: right Qualified Code(s): I80.8 - Phlebitis and thrombophlebitis of other sites (2) Bacteremia Code(s): R78.81 - BACTEREMIA Status: Acute (3) Diarrhea Code(s): R19.7 - DIARRHEA, UNSPECIFIED Status: Acute (4) Fever Code(s): R50.9 - FEVER, UNSPECIFIED Status: Acute (5) Hyponatremia Code(s): E87.1 - HYPO-OSMOLALITY AND HYPONATREMIA Status: Acute (6) Microcytic anemia Code(s): D50.9 - IRON DEFICIENCY ANEMIA, UNSPECIFIED Status: Chronic (7) Physical deconditioning Code(s): R53.81 - OTHER MALAISE Status: Chronic (8) Thrombocytosis Status: Acute (9) Adenocarcinoma of colon Code(s): C18.9 - MALIGNANT NEOPLASM OF COLON, UNSPECIFIED Status: Chronic (10) Alcohol abuse Code(s): F10.10 - ALCOHOL ABUSE, UNCOMPLICATED Status: Chronic (11) Skin abrasion Code(s): T14.8XXA - OTHER INJURY OF UNSPECIFIED BODY REGION, INITIAL ENCOUNTER Status: Acute (12) Leukocytosis Code(s): D72.829 - ELEVATED WHITE BLOOD CELL COUNT, UNSPECIFIED Status: Acute QualifierTitle: Leukocytosis type: unspecified Qualified Code(s): D72.829 - Elevated white blood cell count, unspecified - Plan Plan: Thrombophlebitis of R cephalic and basilic vv - currently on therapeutic lovenox. day 3 of 10 day course - warm compress on arm - US shows thrombosis of cephalic and basilic veins limited to the elbow. Bacteremia - Source is skin wounds vs R superficial vein thrombosis. - Continue IV abx for MSSA, managed by Dr Hoang - afebrile, stable vitals - pt does not have reliable transportation. Pt will be going to SNF pending insurance approval Stage IV rectal ca - Onc is aware of hospitalization and wants pt to follow up out patient after discharge - repeat CT shows worsening pulm and adrenal mets Hyponatremia - stable, at baseline Fever - resolved Leukocytosis - resolved Diarrhea - C diff negative. Diarrhea resolved Alcoholism - 5 days since last drink, low risk for DT Skin abrasion - healing, wound care has been consulted Chronic microcytic anemia - stable - continue iron - monitor Hb q2 days Deconditioning - Consult PT, consider rehab or outpt pt Thrombocytosis - resolved dispo: pt is currently stable. Likely dc today <Aleks Knox - Last Filed: 10/31/17 09:11> Attending Addendum - Attending Addendum Date/Time: 10/31/17 1156 I personally evaluated the patient and discussed the management with Dr. Smith and Dr. Knox I agree with the History, Examination, Assessment and Plan documented above with any addition or exceptions noted below. Continue current care. Will carline NSAID use due to risk. Continue anticoag for total of 7 days. Continue to monitor for risk. Possible d/c to [facility] today. Will need IV antibx for 4 wks per ID. Will need to continue to maintain sterile blood cultures. Saeid <Jamee Aviles - Last Filed: 10/31/17 11:58>
[2017-10-31 09:20] LABS: Hemoglobin 7.8 g/dL (14.0-18.0); Platelet Count 465 thou/uL (130-400)
[2017-10-31] MEDS: Folic Acid 1 MG TAB PO SCH (11:25)
[2017-10-31] MEDS: Magnesium Chloride 64 MG TAB PO SCH ×2 (11:25→20:49)
[2017-10-31] MEDS: Ferrous Sulfate 325 MG TAB PO SCH ×2 (11:25→17:35)
[2017-10-31] MEDS: Enoxaparin Sodium 100 MG/ML SYRINGE SC SCH ×2 (11:26→20:49)
[2017-10-31] MEDS: Ibuprofen 200 MG TAB PO SCH ×2 (17:35→20:49)
[2017-11-01] MEDS: CEFAZOLIN/Water 2 GM/20 ML SYRINGE SLOW IVP SCH ×3 (00:46→16:45)
[2017-11-01] MEDS: Ibuprofen 200 MG TAB PO SCH ×3 (05:19→21:25)
--- NOTE | 2017-11-01 07:00 | PDOC.FM ---
- Subjective Subjective: Patient sleeping but easily aroused. Denies problems today. Denies headache, dizziness, chest pain, dyspnea, abdominal pain, nausea, vomiting. - Objective MAR Reviewed: Yes Vital Signs & Weight: Vital Signs (12 hours) Temp Pulse Resp BP BP Pulse Ox 11/01/17 03:47 97.7 F 68 12 115/57 L 99 11/01/17 00:00 98.1 F 79 16 117/56 L 98 10/31/17 20:00 96.6 F L 81 20 120/56 L 97 Weight Admit Weight 88.496 kg Weight 88.904 kg I&O: 10/30/17 10/31/17 11/01/17 06:59 06:59 06:59 Intake Total 620 2400 702 Balance 620 2400 702 Result Diagrams: 11/01/17 09:24 10/31/17 03:55 Phys Exam - Physical Examination Constitutional: NAD HEENT: moist MMs, sclera anicteric, oral pharynx no lesions Neck: no nodes, no JVD, supple, full ROM Respiratory: no wheezing, no rales, no rhonchi, clear to auscultation bilateral Cardiovascular: RRR, no significant murmur, no rub Gastrointestinal: soft, non-tender, no distention, positive bowel sounds Musculoskeletal: no edema, pulses present Neurological: non-focal, normal sensation, moves all 4 limbs Lymphatic: no nodes Psychiatric: normal affect, A&O x 3 Skin: no rash, normal turgor, cap refill <2 seconds Dx/Plan (1) Bacteremia Code(s): R78.81 - BACTEREMIA Status: Acute Plan: Culturepositive for MSSA - Continue IV Ancef. Patient to go to SNF for iv antibiotics when placement arranged - Dr. Hoang consulted, appreciate his recs - Source - skin wounds vs superficial vein thrombophelbitis - Continues to be afebrile and have otherwise normal vital signs (2) Thrombophlebitis of superficial veins of upper extremities Code(s): I80.8 - PHLEBITIS AND THROMBOPHLEBITIS OF OTHER SITES Status: Acute Qualifiers: Laterality: right Qualified Code(s): I80.8 - Phlebitis and thrombophlebitis of other sites Plan: Thrombophlebitis of R cephalic and basilic vv - limited to elbow on US - Now on day 4 of therapeutic Lovenox - Patient had maroon stools this morning. - Need for Lovenox in the setting of a patient with adenocarcinoma of the colon is difficult as he may develop lower GI bleeding. Will monitor vitals and CBC. May need to shorten course of anticoagulation from Dr. Knox's previously planned 10 day course - Continue warm compresses (3) Adenocarcinoma of colon Code(s): C18.9 - MALIGNANT NEOPLASM OF COLON, UNSPECIFIED Status: Chronic Plan: Stage IV rectal adenocarcinoma - Patient has known metastases to adrenal glands and lungs - Oncology has seen the patient in the past - Plan for outpatient follow up - Palliative care consulted (4) Microcytic anemia Code(s): D50.9 - IRON DEFICIENCY ANEMIA, UNSPECIFIED Status: Chronic Plan: / rectal adenocarcinoma. Will monitor for ongoing blood loss (5) Alcoholism Code(s): F10.20 - ALCOHOL DEPENDENCE, UNCOMPLICATED Status: Chronic Plan: Patient is approximately 1 week out from last drink. Continue to monitor for signs of withdrawal (6) Hyponatremia Code(s): E87.1 - HYPO-OSMOLALITY AND HYPONATREMIA Status: Acute Plan: Now at baseline. Will continue to monitor. (7) Physical deconditioning Code(s): R53.81 - OTHER MALAISE Status: Acute Plan: Continue PT & OT (8) Fever Code(s): R50.9 - FEVER, UNSPECIFIED Status: Resolved Plan: 06/13 #1. Resolved (9) Leukocytosis Code(s): D72.829 - ELEVATED WHITE BLOOD CELL COUNT, UNSPECIFIED Status: Acute Qualifiers: Leukocytosis type: unspecified Qualified Code(s): D72.829 - Elevated white blood cell count, unspecified Plan: 06/13 #1. Resolved (10) Diarrhea Code(s): R19.7 - DIARRHEA, UNSPECIFIED Status: Resolved
[2017-11-01] MEDS: Ferrous Sulfate 325 MG TAB PO SCH ×2 (08:23→15:43)
[2017-11-01] MEDS: Magnesium Chloride 64 MG TAB PO SCH ×2 (08:24→21:26)
[2017-11-01] MEDS: Folic Acid 1 MG TAB PO SCH (08:24)
[2017-11-01] MEDS: Enoxaparin Sodium 100 MG/ML SYRINGE SC SCH ×2 (08:25→21:26)
[2017-11-01] MEDS: Ibuprofen 600 MG TAB PO SCH (08:28)
[2017-11-01 09:34] LABS: #Basophils 0.1 thou/uL (0.0-0.2); #Eosinphils 0.2 thou/uL (0.0-0.7); #Lymphocytes 2.1 thou/uL (1.20-3.40); #Monocytes 0.8 thou/uL (0.11-0.59); #Neutrophils 5.4 thou/uL (1.40-6.50); %Basophils 0.7 % (0.0-1.0); %Eosinophils 1.9 % (0.0-10.0); %Lymphocytes 24.5 % (21.0-51.0); %Monocytes 9.4 % (0.0-10.0); %Neutrophils 63.5 % (42.0-75.0); Hemoglobin 8.3 g/dL (14.0-18.0); Mean Corpuscular HGB CONC 31.2 g/dL (32.0-36.0); Mean Corpuscular Hemoglobin 24.7 pg (27.0-31.0); Mean Corpuscular Volume 79.2 fL (78.0-98.0); Mean Platelet Volume 5.8 fL (7.4-10.4); Platelet Count 580 thou/uL (130-400); RBC Distribution Width 16.9 % (11.5-14.5); Red Blood Cell (RBC) Count 3.35 mill/uL (4.70-6.10); White Blood Cell (WBC) Count 8.5 thou/uL (4.8-10.8)
--- NOTE | 2017-11-01 13:50 | PRG ---
DATE OF SERVICE: 11/01/2017 ADDENDUM Please see the note from Dr. Reyes for which I agree. The patient was evaluated, examined and disc ussed with the residents by bedside. This is an unfortunate gentleman with metastatic colon cancer, who was admitted with bacteremia, has a superficial thrombophlebitis on the right arm and put on anti coagulation for that and a little melena this morning, but that has been an intermittent issue. Manny genao, he is an alcoholic who did not get his colon cancer treated after prolonged prison vi sit, but is currently on antibiotics for the bacteremia and cefazolin. The plan is to find a prison facility for long-term IV antibiotics and then eventually will address metastatic cancer, etc. We will probably get palliative care's involvement to better help wi th the plan that and discussed with the patient option. With the chronic alcoholism, not sure how co mpliant he is going to be with followup and treatment, etc., so we will get palliative care's input a nd help with him as we are getting him set up with prison facility.
[2017-11-02] MEDS: CEFAZOLIN/Water 2 GM/20 ML SYRINGE SLOW IVP SCH ×3 (00:21→18:41)
[2017-11-02] MEDS: Acetaminophen 325 MG TAB PO PRN ×2 (00:25→12:54)
[2017-11-02] MEDS: Ibuprofen 200 MG TAB PO SCH ×2 (05:33→15:01)
--- NOTE | 2017-11-02 06:01 | PDOC.FM ---
- Subjective Subjective: Patient reports he is doing well today. No problems overnight. He states he has had no further maroon stools. Denies headache, dizziness, chest pain, dyspnea, abdominal pain, nausea, vomiting, and diarrhea. - Objective MAR Reviewed: Yes Vital Signs & Weight: Vital Signs (12 hours) Temp Pulse Resp BP BP Pulse Ox 11/02/17 04:00 97.4 F L 71 18 119/56 L 96 11/02/17 00:00 97.6 F 87 20 112/57 L 96 11/01/17 19:51 97.8 F 72 20 98 11/01/17 19:47 97.8 F 72 20 122/58 L 98 Weight Admit Weight 88.496 kg Weight 90.265 kg I&O: 10/31/17 11/01/17 11/02/17 06:59 06:59 06:59 Intake Total 2400 702 2150 Balance 2400 702 2150 Result Diagrams: 11/02/17 05:32 11/02/17 05:33 Phys Exam - Physical Examination Constitutional: NAD HEENT: PERRLA, moist MMs, sclera anicteric, oral pharynx no lesions Neck: no nodes, no JVD, supple, full ROM Respiratory: no wheezing, no rales, no rhonchi, clear to auscultation bilateral Cardiovascular: RRR, no significant murmur, no rub Palpable cord in anterior right forearm. Just distal to antecubital fossa Gastrointestinal: soft, non-tender, no distention, positive bowel sounds Musculoskeletal: no edema, pulses present Neurological: non-focal, normal sensation, moves all 4 limbs Psychiatric: normal affect, A&O x 3 Skin: no rash, normal turgor, cap refill <2 seconds Dx/Plan (1) Bacteremia Code(s): R78.81 - BACTEREMIA Status: Acute Plan: Culturepositive for MSSA - Continue IV Ancef. Patient to go to SNF for iv antibiotics when placement arranged - Dr. Hoang consulted, appreciate his recs - Source - skin wounds vs superficial vein thrombophlebitis - Continues to be afebrile and have otherwise normal vital signs Dispo: Discharge when SNF placement arranged (2) Thrombophlebitis of superficial veins of upper extremities Code(s): I80.8 - PHLEBITIS AND THROMBOPHLEBITIS OF OTHER SITES Status: Acute Qualifiers: Laterality: right Qualified Code(s): I80.8 - Phlebitis and thrombophlebitis of other sites Plan: Thrombophlebitis of R cephalic and basilic vv - limited to elbow on US - Now on day 5 of a planned 10 days of therapeutic Lovenox - Patient had maroon stools yesterday but no further bleeding since - Complicated therapeutic regimen as patient's known adenocarcinoma of the colon would predispose him to GI bleeding. At this time, CBC and vitals are stable. Will continue to monitor clinically for evidence of bleeding and closely monitor vitals. Should he have more persistent or heavier bleeding, Lovenox treatment will need to be terminated early. - Continue warm compresses (3) Adenocarcinoma of colon Code(s): C18.9 - MALIGNANT NEOPLASM OF COLON, UNSPECIFIED Status: Chronic Plan: Stage IV rectal adenocarcinoma - Patient has known metastases to adrenal glands and lungs - Oncology has seen the patient in the past - Plan for outpatient follow up - Palliative care consulted (4) Microcytic anemia Code(s): D50.9 - IRON DEFICIENCY ANEMIA, UNSPECIFIED Status: Chronic Plan: 2/2 rectal adenocarcinoma. Will monitor for ongoing blood loss. Hgb 7.6 today, down from 8.3 yesterday. Has been between 7.8 to 8.3 earlier in admission. (5) Alcoholism Code(s): F10.20 - ALCOHOL DEPENDENCE, UNCOMPLICATED Status: Chronic Plan: Patient is approximately 1 week out from last drink. Continue to monitor for signs of withdrawal (6) Hyponatremia Code(s): E87.1 - HYPO-OSMOLALITY AND HYPONATREMIA Status: Acute Plan: Now at baseline. Will continue to monitor. (7) Physical deconditioning Code(s): R53.81 - OTHER MALAISE Status: Acute Plan: Continue PT & OT (8) Fever Code(s): R50.9 - FEVER, UNSPECIFIED Status: Resolved Plan: 06/13 #1. Resolved (9) Leukocytosis Code(s): D72.829 - ELEVATED WHITE BLOOD CELL COUNT, UNSPECIFIED Status: Acute Qualifiers: Leukocytosis type: unspecified Qualified Code(s): D72.829 - Elevated white blood cell count, unspecified Plan: / #1. Resolved (10) Diarrhea Code(s): R19.7 - DIARRHEA, UNSPECIFIED Status: Resolved
[2017-11-02 06:27] LABS: Hemoglobin 7.6 g/dL (14.0-18.0)
[2017-11-02 06:44] LABS: Anion Gap 11 mmol/L (10-20); BUN (Urea Nitrogen) 14 mg/dL (8.4-25.7); Calc. Creatinine Clearance 124 mL/min (70-130); Calcium 8.9 mg/dL (7.8-10.44); Carbon Dioxide 31 mmol/L (23-31); Chloride 96 mmol/L (98-107); Estimated GFR-MDRD Greater than 90; Glucose 97 mg/dL (80-115); Sodium 134 mmol/L (136-145)
[2017-11-02] MEDS: Enoxaparin Sodium 100 MG/ML SYRINGE SC SCH ×2 (09:17→22:24)
[2017-11-02] MEDS: Magnesium Chloride 64 MG TAB PO SCH ×2 (09:19→22:23)
[2017-11-02] MEDS: Folic Acid 1 MG TAB PO SCH (09:19)
[2017-11-02] MEDS: Ferrous Sulfate 325 MG TAB PO SCH ×2 (09:19→18:38)
[2017-11-02 10:19] LABS: Hemoglobin 7.5 g/dL (14.0-18.0); Platelet Count 602 thou/uL (130-400)
[2017-11-02] MEDS ORDERED: Ibuprofen 200 MG TAB PO PRN (17:08)
--- NOTE | 2017-11-02 18:24 | ADD-PRG ---
DATE OF SERVICE: 11/02/2017 ADDENDUM Please see note from Dr. Frederick Reyes for which I agree. The patient was seen and evaluated, exam ined and discussed with the residents by bedside. Basically, no major changes, still on Lovenox for the right upper extremity superficial thrombophlebitis that is relatively impressive and still on IV antibiotics for the bacteremia. The ultimate plan is for him to go to a correction for long-ter m IV antibiotics that he is going to need and then we are still trying to figure out next step as far as treatment for the metastatic colon cancer. So far, he has been noncompliant on getting that furt her treated. He is still having occasional bloody stool, but his H&H is fairly stable. Risk of DVT is felt to outweigh the risk of gastrointestinal bleed at this point in time, although certainly ther e are risks of keeping him on anticoagulation and he understands that. So main thing is trying to fi nd a placement through case management as far as placing of that IV antibiotic.
[2017-11-02 18:32] LABS: Hemoglobin 7.5 g/dL (14.0-18.0); Platelet Count 602 thou/uL (130-400)
[2017-11-03] MEDS: CEFAZOLIN/Water 2 GM/20 ML SYRINGE SLOW IVP SCH ×3 (02:35→17:51)
[2017-11-03 06:12] LABS: Hemoglobin 7.2 g/dL (14.0-18.0); Platelet Count 611 thou/uL (130-400)
--- NOTE | 2017-11-03 07:34 | ULT ---
SOFT TISSUE ULTRASOUND OF BOTH GROINS: Date: 11/02/17 HISTORY: Palpable mass bilateral groins. FINDINGS: There are masses in both groins, consistent with enlarged lymph nodes, measuring 3.2 cm on the right and 2.7 cm on the left. IMPRESSION: Bilateral enlarged groin lymph nodes. POS: [facility]
--- NOTE | 2017-11-03 08:46 | PDOC.FM ---
- Subjective Subjective: 67 yo M here for MSSA septicemia and chronic hyponatremia. Pt is feeling well today and has no specific complaints today. He denies symptoms such as fever, chills, n/v, diarrhea. He does complain about chronic rectal pain. There were no more maroon stools this am. - Objective Vital Signs & Weight: Vital Signs (12 hours) Temp Pulse Resp BP BP Pulse Ox 11/03/17 07:37 97.8 F 81 16 128/57 L 96 11/03/17 05:08 97 F L 89 16 129/79 97 11/03/17 00:26 98.2 F 88 16 119/62 99 Weight Admit Weight 88.496 kg Weight 90.1 kg I&O: 11/02/17 11/03/17 11/04/17 06:59 06:59 06:59 Intake Total 2150 1070 Balance 2150 1070 Result Diagrams: 11/03/17 05:35 11/02/17 05:33 <Aleks Knox - Last Filed: 11/03/17 08:41> - Objective Vital Signs & Weight: Vital Signs (12 hours) Temp Pulse Resp BP BP Pulse Ox 11/03/17 08:00 97.8 F 81 16 11/03/17 07:37 97.8 F 81 16 128/57 L 96 11/03/17 05:08 97 F L 89 16 129/79 97 11/03/17 00:26 98.2 F 88 16 119/62 99 Weight Admit Weight 88.496 kg Weight 90.1 kg I&O: 11/02/17 11/03/17 11/04/17 06:59 06:59 06:59 Intake Total 2150 1070 Balance 2150 1070 Result Diagrams: 11/03/17 05:35 11/02/17 05:33 <Jasbir Gomez - Last Filed: 11/03/17 11:24> Phys Exam - Physical Examination Constitutional: NAD HEENT: moist MMs, sclera anicteric Neck: no JVD, full ROM Respiratory: clear to auscultation bilateral Cardiovascular: RRR, no significant murmur Palpable cord in R AC. Non tender, not red. Smaller than previous exam Gastrointestinal: soft, non-tender, no distention, positive bowel sounds Musculoskeletal: no edema, pulses present Neurological: non-focal, moves all 4 limbs Psychiatric: normal affect, A&O x 3 Skin: no rash, normal turgor, cap refill <2 seconds <Aleks Knox - Last Filed: 11/03/17 08:41> Dx/Plan (1) Thrombophlebitis of superficial veins of upper extremities Code(s): I80.8 - PHLEBITIS AND THROMBOPHLEBITIS OF OTHER SITES Status: Acute QualifierTitle: Laterality: right Qualified Code(s): I80.8 - Phlebitis and thrombophlebitis of other sites (2) Bacteremia Code(s): R78.81 - BACTEREMIA Status: Acute (3) Diarrhea Code(s): R19.7 - DIARRHEA, UNSPECIFIED Status: Resolved (4) Fever Code(s): R50.9 - FEVER, UNSPECIFIED Status: Resolved (5) Hyponatremia Code(s): E87.1 - HYPO-OSMOLALITY AND HYPONATREMIA Status: Acute (6) Microcytic anemia Code(s): D50.9 - IRON DEFICIENCY ANEMIA, UNSPECIFIED Status: Chronic (7) Physical deconditioning Code(s): R53.81 - OTHER MALAISE Status: Acute (8) Thrombocytosis Status: Acute (9) Adenocarcinoma of colon Code(s): C18.9 - MALIGNANT NEOPLASM OF COLON, UNSPECIFIED Status: Chronic (10) Alcohol abuse Code(s): F10.10 - ALCOHOL ABUSE, UNCOMPLICATED Status: Chronic (11) Skin abrasion Code(s): T14.8XXA - OTHER INJURY OF UNSPECIFIED BODY REGION, INITIAL ENCOUNTER Status: Acute (12) Leukocytosis Code(s): D72.829 - ELEVATED WHITE BLOOD CELL COUNT, UNSPECIFIED Status: Acute QualifierTitle: Leukocytosis type: unspecified Qualified Code(s): D72.829 - Elevated white blood cell count, unspecified - Plan Plan: MSSA bacteremia - Continue IV ancef for 4 weeks total course. Currently working out how patient will be able to continue treatment out patient. He is out of medicare SNF days and cannot afford to pay SNF. Medicare will not pay for home health to bring daily abx. Pt does not have transportation. - Dr Hoang consulted, appreciate recommendation - Normal vitals, no fever Thrombophlebitis of R cephalic and basilic vv - limited to elbow on US - This has improved significantly. No concern for infection. - Patient had maroon stools yesterday but no further bleeding since, however Hb continues to trend down. Lovenox has been stopped, given that its major use was symptom control and there has been marked improvement of clot size. 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 - Continued downtrend due to lovenox and increased likelihood of GI bleed dt cancer. - Monitor H&H in am. Lovenox dc'd as above Alcoholism - Over 1 week since last drink. Low concern for withdrawal at this point Deconditioning - PT/OT Fever - secondary to bacteremia, resolved Leukocytosis - secondary to bacteremia, resolved Diarrhea - likely secondary to abx, resolved Dispo: Pt is medically stable, working with case management to find appropriate outpatient care to continue abx <Aleks Knox - Last Filed: 11/03/17 08:41> Attending Addendum - Attending Addendum Date/Time: 11/03/17 1121 I personally evaluated the patient and discussed the management with Dr. Knox I agree with the History, Examination, Assessment and Plan documented above with any addition or exceptions noted below. Patient with right inguinal reactive adenopathy. 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 <Jasbir Gomez - Last Filed: 11/03/17 11:24>
[2017-11-03] MEDS: Ferrous Sulfate 325 MG TAB PO SCH ×2 (08:50→17:50)
[2017-11-03] MEDS: Folic Acid 1 MG TAB PO SCH (08:51)
[2017-11-03] MEDS: Magnesium Chloride 64 MG TAB PO SCH ×2 (08:51→21:42)
[2017-11-03] MEDS: traMADol HCl 50 MG TAB PO PRN (17:50)
--- NOTE | 2017-11-03 18:02 | PRG ---
DATE OF SERVICE: 11/03/2017 SUBJECTIVE: Feeling better. No shortness of breath or chest pain, no cough, no abdominal pain, no d iarrhea. Right upper extremity with improvement in the areas of phlebitis. Vital signs are normal. The right upper extremity with marked decrease in the swelling still with indurated cord in the ante cubital fossa, but no erythema. OBJECTIVE: LUNGS: Clear. HEART: S1, S2, regular rate. ABDOMEN: Soft. LABORATORY DATA: White cell count 8.5, hemoglobin 8.3, platelets 580 and now 611. Creatinine is 0.7 2. ASSESSMENT AND DISCUSSION: Colon cancer, metastatic to lungs and adrenal glands, alcoholism and sept ic thrombophlebitis due to methicillin-sensitive Staph aureus right antecubital fossa. The patient t o continue treatment. Platelets are still going up and he may eventually develop an abscess that douglas ht have to be surgically debrided or not.
[2017-11-04] MEDS: CEFAZOLIN/Water 2 GM/20 ML SYRINGE SLOW IVP SCH ×3 (00:35→16:53)
[2017-11-04 05:34] LABS: Hemoglobin 7.5 g/dL (14.0-18.0); Platelet Count 612 thou/uL (130-400)
[2017-11-04 06:04] LABS: Anion Gap 12 mmol/L (10-20); BUN (Urea Nitrogen) 19 mg/dL (8.4-25.7); Calc. Creatinine Clearance 118 mL/min (70-130); Calcium 9.1 mg/dL (7.8-10.44); Carbon Dioxide 31 mmol/L (23-31); Chloride 97 mmol/L (98-107); Estimated GFR-MDRD Greater than 90; Glucose 103 mg/dL (80-115); Potassium 4.1 mmol/L (3.5-5.1); Sodium 136 mmol/L (136-145)
[2017-11-04] MEDS: traMADol HCl 50 MG TAB PO PRN (08:19)
[2017-11-04] MEDS: Magnesium Chloride 64 MG TAB PO SCH ×2 (08:21→19:58)
[2017-11-04] MEDS: Ferrous Sulfate 325 MG TAB PO SCH ×2 (08:21→16:53)
[2017-11-04] MEDS: Folic Acid 1 MG TAB PO SCH (08:21)
--- NOTE | 2017-11-04 09:01 | PDOC.FM ---
- Subjective Subjective: 67 yo male here for MSSA septicemia and hyponatremia. Pt feeling well today, he denies any new symptoms. Has no specific complaints today. There were no significant events over night. - Objective MAR Reviewed: Yes Vital Signs & Weight: Vital Signs (12 hours) Temp Pulse Resp BP BP Pulse Ox 11/04/17 08:33 97.6 F 80 18 118/54 L 97 11/04/17 04:32 98.1 F 80 18 94/54 L 97 11/04/17 00:42 98.3 F 80 18 125/69 97 Weight Admit Weight 88.496 kg Weight 91.172 kg I&O: 11/03/17 11/04/17 11/05/17 06:59 06:59 06:59 Intake Total 1070 3200 Output Total 3 Balance 1070 3197 Result Diagrams: 11/04/17 04:02 11/04/17 04:02 <Aleks Knox - Last Filed: 11/04/17 08:58> - Objective Vital Signs & Weight: Vital Signs (12 hours) Temp Pulse Resp BP BP Pulse Ox 11/04/17 11:00 97.6 F 77 18 123/72 95 11/04/17 08:33 97.6 F 80 18 118/54 L 97 11/04/17 08:00 97.6 F 80 18 11/04/17 04:32 98.1 F 80 18 94/54 L 97 11/04/17 00:42 98.3 F 80 18 125/69 97 Weight Admit Weight 88.496 kg Weight 91.172 kg I&O: 11/03/17 11/04/17 11/05/17 06:59 06:59 06:59 Intake Total 1070 3200 580 Output Total 3 Balance 1070 3197 580 Result Diagrams: 11/04/17 04:02 11/04/17 04:02 <Jasbir Gomez - Last Filed: 11/04/17 11:32> Phys Exam - Physical Examination Constitutional: NAD HEENT: moist MMs, TM's clear Neck: no JVD, full ROM Respiratory: clear to auscultation bilateral Cardiovascular: RRR, no significant murmur Gastrointestinal: soft, non-tender, no distention, positive bowel sounds Musculoskeletal: no edema Neurological: non-focal, normal sensation, moves all 4 limbs Lymphatic: no nodes Psychiatric: normal affect, A&O x 3 Skin: normal turgor Deviation from normal: Multiple dressed and clean pressure ulcers on both hips and elbow -: Healing abdominal abrasions <Aleks Knox - Last Filed: 11/04/17 08:58> Dx/Plan (1) Thrombophlebitis of superficial veins of upper extremities Code(s): I80.8 - PHLEBITIS AND THROMBOPHLEBITIS OF OTHER SITES Status: Acute QualifierTitle: Laterality: right Qualified Code(s): I80.8 - Phlebitis and thrombophlebitis of other sites (2) Bacteremia Code(s): R78.81 - BACTEREMIA Status: Acute (3) Diarrhea Code(s): R19.7 - DIARRHEA, UNSPECIFIED Status: Resolved (4) Fever Code(s): R50.9 - FEVER, UNSPECIFIED Status: Resolved (5) Hyponatremia Code(s): E87.1 - HYPO-OSMOLALITY AND HYPONATREMIA Status: Acute (6) Microcytic anemia Code(s): D50.9 - IRON DEFICIENCY ANEMIA, UNSPECIFIED Status: Chronic (7) Physical deconditioning Code(s): R53.81 - OTHER MALAISE Status: Acute (8) Thrombocytosis Status: Acute (9) Adenocarcinoma of colon Code(s): C18.9 - MALIGNANT NEOPLASM OF COLON, UNSPECIFIED Status: Chronic (10) Alcohol abuse Code(s): F10.10 - ALCOHOL ABUSE, UNCOMPLICATED Status: Chronic (11) Skin abrasion Code(s): T14.8XXA - OTHER INJURY OF UNSPECIFIED BODY REGION, INITIAL ENCOUNTER Status: Acute (12) Leukocytosis Code(s): D72.829 - ELEVATED WHITE BLOOD CELL COUNT, UNSPECIFIED Status: Acute QualifierTitle: Leukocytosis type: unspecified Qualified Code(s): D72.829 - Elevated white blood cell count, unspecified - Plan Plan: MSSA bacteremia - Continue IV ancef for 4 weeks total course. Do not currently have a good placement plan for how the patient will get his abx after discharge. CM has been consulted. - Dr Hoang consulted, appreciate recommendation - Normal vitals, no fever Thrombophlebitis of R cephalic and basilic vv - limited to elbow on US - This has improved significantly. 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 - Continued downtrend due to lovenox and increased likelihood of GI bleed dt cancer. - Monitor H&H in am. Lovenox dc'd as above Alcoholism - Over 1 week since last drink. Low concern for withdrawal at this point Deconditioning - PT/OT Fever - secondary to bacteremia, resolved Leukocytosis - secondary to bacteremia, resolved Diarrhea - likely secondary to abx, resolved Dispo: Pt is medically stable, working with case management to find appropriate outpatient care to continue abx <Aleks Knox - Last Filed: 11/04/17 08:58> Attending Addendum - Attending Addendum Date/Time: 11/04/17 1131 I personally evaluated the patient and discussed the management with Dr. Knox I agree with the History, Examination, Assessment and Plan documented above with any addition or exceptions noted below.Still awaiting placement options. <Jasbir Gomez - Last Filed: 11/04/17 11:32>
[2017-11-04 13:27] VITALS: BMI 27.2
[2017-11-05] MEDS: CEFAZOLIN/Water 2 GM/20 ML SYRINGE SLOW IVP SCH ×3 (00:17→18:39)
--- NOTE | 2017-11-05 09:24 | PDOC.FM ---
- Subjective Subjective: 67 yo M here with MSSA bacteremia. Pt found resting comfortably this morning. He states that he feels well and has no specific complaints. He denies any new symptoms. There were no acute events over night. - Objective MAR Reviewed: Yes Vital Signs & Weight: Vital Signs (12 hours) Temp Pulse Resp BP Pulse Ox 11/05/17 07:37 97.9 F 85 18 105/54 L 97 Weight Admit Weight 88.496 kg Weight 90.718 kg I&O: 11/04/17 11/05/17 11/06/17 06:59 06:59 06:59 Intake Total 3200 3740 Output Total 3 3 Balance 3197 3734 Result Diagrams: 11/04/17 04:02 11/04/17 04:02 <Aleks Knox - Last Filed: 11/05/17 09:21> - Objective Vital Signs & Weight: Vital Signs (12 hours) Temp Pulse Resp BP Pulse Ox 11/05/17 07:37 97.9 F 85 18 105/54 L 97 Weight Admit Weight 88.496 kg Weight 90.718 kg I&O: 11/04/17 11/05/17 11/06/17 06:59 06:59 06:59 Intake Total 3200 3740 Output Total 3 3 Balance 3196 373 Result Diagrams: 11/04/17 04:02 11/04/17 04:02 <Jasbir Gomez - Last Filed: 11/05/17 11:34> Phys Exam - Physical Examination Constitutional: NAD HEENT: moist MMs, sclera anicteric Neck: no JVD, full ROM Respiratory: clear to auscultation bilateral Cardiovascular: RRR, no significant murmur Gastrointestinal: soft, non-tender, no distention, positive bowel sounds Musculoskeletal: no edema, pulses present Palpable cord in R anticubital fossa, improving. Non TTP or erythematous Neurological: non-focal, moves all 4 limbs Psychiatric: normal affect, A&O x 3 Skin: no rash <Aleks Knox - Last Filed: 11/05/17 09:21> Dx/Plan (1) Thrombophlebitis of superficial veins of upper extremities Code(s): I80.8 - PHLEBITIS AND THROMBOPHLEBITIS OF OTHER SITES Status: Acute QualifierTitle: Laterality: right Qualified Code(s): I80.8 - Phlebitis and thrombophlebitis of other sites (2) Bacteremia Code(s): R78.81 - BACTEREMIA Status: Acute (3) Diarrhea Code(s): R19.7 - DIARRHEA, UNSPECIFIED Status: Resolved (4) Fever Code(s): R50.9 - FEVER, UNSPECIFIED Status: Resolved (5) Hyponatremia Code(s): E87.1 - HYPO-OSMOLALITY AND HYPONATREMIA Status: Acute (6) Microcytic anemia Code(s): D50.9 - IRON DEFICIENCY ANEMIA, UNSPECIFIED Status: Chronic (7) Physical deconditioning Code(s): R53.81 - OTHER MALAISE Status: Acute (8) Thrombocytosis Status: Acute (9) Adenocarcinoma of colon Code(s): C18.9 - MALIGNANT NEOPLASM OF COLON, UNSPECIFIED Status: Chronic (10) Alcohol abuse Code(s): F10.10 - ALCOHOL ABUSE, UNCOMPLICATED Status: Chronic (11) Skin abrasion Code(s): T14.8XXA - OTHER INJURY OF UNSPECIFIED BODY REGION, INITIAL ENCOUNTER Status: Acute (12) Leukocytosis Code(s): D72.829 - ELEVATED WHITE BLOOD CELL COUNT, UNSPECIFIED Status: Acute QualifierTitle: Leukocytosis type: unspecified Qualified Code(s): D72.829 - Elevated white blood cell count, unspecified - Plan Plan: MSSA bacteremia - Continue IV ancef for 4 weeks total course. Do not currently have a good placement plan for how the patient will get his abx after discharge. has been consulted and is looking outside of the local area for possible placement. Discussion was had yesterday with family, hopefully we will have a solid plan today. 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 - Continued downtrend due to lovenox and increased likelihood of GI bleed dt cancer. - Monitor H&H in am. Lovenox dc'd as above Alcoholism - Over 1 week since last drink. Low concern for withdrawal at this point Deconditioning - PT/OT Fever - secondary to bacteremia, resolved Leukocytosis - secondary to bacteremia, resolved Diarrhea - likely secondary to abx, resolved Dispo: Pt is medically stable, working with case management to find appropriate outpatient care to continue abx. Possible dc today <Aleks Knox - Last Filed: 11/05/17 09:21> Attending Addendum - Attending Addendum Date/Time: 11/05/17 7077 I personally evaluated the patient and discussed the management with Dr. Knox I agree with the History, Examination, Assessment and Plan documented above with any addition or exceptions noted below. <Jasbir Gomez - Last Filed: 11/05/17 11:34>
[2017-11-05] MEDS: Ferrous Sulfate 325 MG TAB PO SCH ×2 (09:27→18:40)
[2017-11-05] MEDS: Magnesium Chloride 64 MG TAB PO SCH ×2 (09:27→20:53)
[2017-11-05] MEDS: Folic Acid 1 MG TAB PO SCH (09:27)
[2017-11-06] MEDS: CEFAZOLIN/Water 2 GM/20 ML SYRINGE SLOW IVP SCH ×2 (01:10→09:50)
[2017-11-06 04:47] LABS: Anion Gap 14 mmol/L (10-20); BUN (Urea Nitrogen) 35 mg/dL (8.4-25.7); Calc. Creatinine Clearance 109 mL/min (70-130); Calcium 9.4 mg/dL (7.8-10.44); Carbon Dioxide 30 mmol/L (23-31); Chloride 93 mmol/L (98-107); Estimated GFR-MDRD Greater than 90; Glucose 133 mg/dL (80-115); Potassium 4.7 mmol/L (3.5-5.1); Sodium 132 mmol/L (136-145)
[2017-11-06] MEDS: Magnesium Chloride 64 MG TAB PO SCH (08:19)
[2017-11-06] MEDS: traMADol HCl 50 MG TAB PO PRN (08:19)
[2017-11-06] MEDS: Folic Acid 1 MG TAB PO SCH (08:20)
[2017-11-06] MEDS: Ferrous Sulfate 325 MG TAB PO SCH (08:20)
--- NOTE | 2017-11-06 09:22 | PDOC.FM ---
- Subjective Subjective: Resting comfortably this morning with no specific complaints. He denies any new symptoms. There were no acute events over night. - Objective MAR Reviewed: Yes Vital Signs & Weight: Vital Signs (12 hours) Temp Pulse Resp BP Pulse Ox 11/06/17 07:41 98.6 F 89 16 117/69 95 Weight Admit Weight 88.496 kg Weight 92.578 kg I&O: 11/05/17 11/06/17 11/07/17 06:59 06:59 06:59 Intake Total 3740 900 Output Total 3 Balance 3737 900 Result Diagrams: 11/04/17 04:02 11/06/17 04:07 <Aleks Knox - Last Filed: 11/06/17 09:20> - Objective Vital Signs & Weight: Vital Signs (12 hours) Temp Pulse Resp BP BP Pulse Ox 11/06/17 12:05 98.4 F 89 16 120/69 95 11/06/17 08:00 98.6 F 89 16 95 11/06/17 07:41 98.6 F 89 16 117/69 95 Weight Admit Weight 88.496 kg Weight 92.578 kg I&O: 11/05/17 11/06/17 11/07/17 06:59 06:59 06:59 Intake Total 3740 900 Output Total 3 Balance 3737 900 Result Diagrams: 11/04/17 04:02 11/06/17 04:07 <Jasbir Gomez - Last Filed: 11/06/17 13:28> Phys Exam - Physical Examination Constitutional: NAD HEENT: moist MMs, sclera anicteric Neck: no JVD, full ROM Respiratory: clear to auscultation bilateral Cardiovascular: RRR, no significant murmur Gastrointestinal: soft, non-tender, no distention, positive bowel sounds Musculoskeletal: no edema, pulses present Neurological: non-focal, normal sensation Psychiatric: normal affect, A&O x 3 Deviation from normal: Multiple pressure ulcers dressed and clean <Aleks Knox - Last Filed: 11/06/17 09:20> Dx/Plan (1) Thrombophlebitis of superficial veins of upper extremities Code(s): I80.8 - PHLEBITIS AND THROMBOPHLEBITIS OF OTHER SITES Status: Acute QualifierTitle: Laterality: right Qualified Code(s): I80.8 - Phlebitis and thrombophlebitis of other sites (2) Bacteremia Code(s): R78.81 - BACTEREMIA Status: Acute (3) Diarrhea Code(s): R19.7 - DIARRHEA, UNSPECIFIED Status: Resolved (4) Fever Code(s): R50.9 - FEVER, UNSPECIFIED Status: Resolved (5) Hyponatremia Code(s): E87.1 - HYPO-OSMOLALITY AND HYPONATREMIA Status: Acute (6) Microcytic anemia Code(s): D50.9 - IRON DEFICIENCY ANEMIA, UNSPECIFIED Status: Chronic (7) Physical deconditioning Code(s): R53.81 - OTHER MALAISE Status: Acute (8) Thrombocytosis Status: Acute (9) Adenocarcinoma of colon Code(s): C18.9 - MALIGNANT NEOPLASM OF COLON, UNSPECIFIED Status: Chronic (10) Alcohol abuse Code(s): F10.10 - ALCOHOL ABUSE, UNCOMPLICATED Status: Chronic (11) Skin abrasion Code(s): T14.8XXA - OTHER INJURY OF UNSPECIFIED BODY REGION, INITIAL ENCOUNTER Status: Acute (12) Leukocytosis Code(s): D72.829 - ELEVATED WHITE BLOOD CELL COUNT, UNSPECIFIED Status: Acute QualifierTitle: Leukocytosis type: unspecified Qualified Code(s): D72.829 - Elevated white blood cell count, unspecified - Plan Plan: MSSA bacteremia - Continue IV ancef for 4 weeks total course. Do not currently have a good placement plan for how the patient will get his abx after discharge. CM has been consulted and is looking outside of the local area for possible placement, he was denied multiple locations yesterday. 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 - stable Alcoholism - Over 1 week since last drink. Low concern for withdrawal at this point Deconditioning - PT/OT Fever - secondary to bacteremia, resolved Leukocytosis - secondary to bacteremia, resolved Diarrhea - likely secondary to abx, resolved Dispo: Pt is medically stable, working with case management to find appropriate outpatient care to continue abx. Possible dc today <Aleks Knox - Last Filed: 11/06/17 09:20> Attending Addendum - Attending Addendum Date/Time: 11/06/17 [id number] I personally evaluated the patient and discussed the management with Dr. Knox I agree with the History, Examination, Assessment and Plan documented above with any addition or exceptions noted below.Discharge pending placement. <Jasbir Gomez - Last Filed: 11/06/17 13:28>
[2017-11-06 12:06] VITALS: BP 120/69; TEMP 98.4
--- NOTE | 2017-11-06 13:27 | DIS-2 ---
DATE OF ADMISSION: 10/24/2017 DATE OF DISCHARGE: 11/06/2017 RESIDENT: Aleks Knox D.O. ADMITTING ATTENDING: Trenton Perrin M.D. DISCHARGE ATTENDING: Jasbir Gomez M.D. CONSULTATIONS: Infectious Disease, Dr. Frederick Hoang. PROCEDURES: Echocardiogram on 10/27/2017, finding a technically difficult study with poor endocardial definition, left ventricular ejection fraction estimated at 50-55%. E/A flow reversal noted suggestive of diastolic dysfunction, mild mitral regurgitation, mild tricuspid regurgitation. Chest CT on 10/27/2017; findings interval growth of bilateral pulmonary nodules evidence of worsening pulmonary metastases. Interval growth of bilateral adrenal metastasis, multiple rib fractures and evidence of acute pneumonia. Vascular ultrasound on the right antecubital fossa finding; acute venous central thrombosis of the right cephalic and basilic veins isolated to the elbow. PICC line placement on 10/30/2017, left upper extremity PICC. Soft tissue ultrasound of inguinal lymph nodes. Finding bilaterally enlarged groin lymph nodes measuring 3.2 cm on the right, 2.7 cm on the left. DISCHARGE MEDICATIONS: Cefazolin 2 grams 20 mL syringe, 2 grams IV t.i.d. until 11/21/2017. DISCONTINUED MEDICATIONS: None. 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 Typically the patient's sodium is in the low 130s. However, at the time of admission sodium was 116. This was determined likely secondary to beer drinkers potomania. P.o. liquids were held and the patient was given normal saline. The patient's sodium rapidly increased over the first 8 hours. The patient was put on half normal saline in order to slow progression. However, slow rise of sodium. Over the first 24 hours of admission, the patient's sodium corrected to 126 and then corrected to 132. For the remainder of the hospitalization, the patient ate and drank normally and maintained a low to normal sodium in the 130s to 140s. While admitted, it was noted that blood cultures that had been drawn at time of admission were positive for MSSA Staph aureus. Infectious Disease was consulted and the patient was put on 4 weeks of IV antibiotics. This is to be continued in the outpatient setting. The patient at the time of discharge was discharged to [facility] in [facility] where IV antibiotics can be continued until the discontinuation date of 11/25/2017. The patient should have close followup with Infectious Disease, Dr. Hoang while being treated. Additionally, while admitted, it was noted that the patient developed a superficial vein thrombosis in his right antecubital fossa at the site of the IV catheter. This area did become significantly edematous, red and was diagnosed with thrombophlebitis. The patient was started on therapeutic Lovenox due to the fact that he is a known cancer patient. The redness and pain associated quickly resolved over the subsequent 48 hours. Additionally, the size of the thrombus significantly decreased. However, on approximately the fourth day of therapeutic Lovenox, the patient noted maroon stools. Additionally, the patient's hemoglobin began to downtrend. On day 5 of Lovenox , due to continued down trending of the patient's hemoglobin his Lovenox was discontinued. After discontinuation of Lovenox the hemoglobin remained stable at approximately 7.5. The patient was and remained asymptomatic. He is typically chronically anemic with his typical hemoglobin being in the low 9s to mid 8s. The thrombosis continued to be treated with a warm compress and pain management. At the time of admission, it was noted that the patient had significant abdominal abrasions that were healing. Wound Care was consulted. They additionally found multiple pressure ulcers. These were treated by Wound Care throughout the time of hospitalization and improved significantly during the hospitalization. They should be continued to be monitored in follow up. Additionally, the patient was noted to have a long history of alcoholism. Throughout the first week of admission, the patient was monitored for signs of withdrawal, which was consistently negative, scores it remained in the 6 or below range. He required no Librium or Ativan. There were never any concern for delirium tremens. Regarding colon cancer, this diagnosis was made in a time frame at a previous admission. It was determined that he was too deconditioned to go immediately for treatment, so he was sent to inpatient rehab; however, was then after admission and discharged from outpatient rehab he was almost immediately readmitted to the hospital for the hyponatremia. Oncology was alerted that the patient was here and they recommended that he follow up in the outpatient setting after treatment. Regarding the patient's social status, apparently his living situation is not ideal. He has very inconsistent transportation and per his daughters, he lives in a home without running water and with inconsistent electricity and that it is generally unsanitary. Although he will be going to SNF, I am under the impression that the best possible scenario for him would be to go to a care home especially while he has been treated for cancer. DISPOSITION: Stable. DISCHARGE INSTRUCTIONS: 1. Location: To SNF in [place], [place]. 2. Diet: Regular. 3. Activity: Ad awilda. 4. Followup: Follow up with Dr. Hoang in [address] Solorzano. The patient is to find a primary care physician and follow up in 1 week. MASHA
== END 2017-11-06 16:52 | DRG 872 ==
LOC: ERS 16:33 → 2NO 18:10 → T4-A 11-02 17:05
PROVIDERS: ADMIT Family Medicine; ATTEND Family Medicine
PROC: 02HV33Z Insertion of Infusion Device into Superior Vena Cava, Percutaneous Approach (ICD-10-PCS; principal; 2017-10-30)
PROC: B548ZZA Ultrasonography of Superior Vena Cava, Guidance (ICD-10-PCS; 2017-10-30)
DX: R78.81 Bacteremia (principal); E87.1 Hypo-osmolality and hyponatremia; C18.9 Malignant neoplasm of colon, unspecified; C78.00 Secondary malignant neoplasm of unspecified lung; C79.70 Secondary malignant neoplasm of unspecified adrenal gland; K52.1 Toxic gastroenteritis and colitis; I82.611 Acute embolism and thrombosis of superficial veins of right upper extremity; F10.20 Alcohol dependence, uncomplicated; I80.8 Phlebitis and thrombophlebitis of other sites; Z87.891 Personal history of nicotine dependence; D50.9 Iron deficiency anemia, unspecified; D47.3 Essential (hemorrhagic) thrombocythemia; S30.811A Abrasion of abdominal wall, initial encounter; X58.XXXA Exposure to other specified factors, initial encounter; Y92.009 Unspecified place in unspecified non-institutional (private) residence as the place of occurrence of the external cause; B95.61 Methicillin susceptible Staphylococcus aureus infection as the cause of diseases classified elsewhere; T36.95XA Adverse effect of unspecified systemic antibiotic, initial encounter; Y92.230 Patient room in hospital as the place of occurrence of the external cause; E80.6 Other disorders of bilirubin metabolism; E83.42 Hypomagnesemia; Z91.81 History of falling
CPT/HCPCS: 36415; 36569; 71045; 71250; 76999; 80048; 80053; 80202; 80307; 81003; 81015; 82140; 82550; 82553; 82570; 83735; 83930; 83935; 84100; 84300; 84484; 85014; 85018; 85025; 85049; 85652; 86780; 87040; 87077; 87086; 87149; 87186; 87324; 87389; 87449; 93005; 93306; 96365; 96366; 96375; A4216; C1751; G8978-GP-CI; G8979-GP-CI; G8980-GP-CI; G8987-GO-CJ; G8988-GO-CH; J1200; J1644; J1650; J2765; J3370; J3411; J7050